=== PATIENT | female | born 1985 | race Caucasian/White ===

== ENCOUNTER 2019-11-08 13:51 | Emergency (ER) | payer OTHER ==
[~2019-11-08] VITALS: Ht 162 cm; Wt 118.0 kg
[2019-11-08 13:59] VITALS: BP 136/91
--- NOTE | 2019-11-08 14:15 | ED GI ---
General Chief Complaint: Abdominal/GI Problems Stated Complaint: ABD PAIN;BLOOD IN STOOL Nursing Triage Note: states has had abdominal pain, started having blood in stool this morning Sepsis Screen: No Definite Risk Source of Information: Patient Exam Limitations: No Limitations History of Present Illness Date Seen by Provider: Nov 08, 2019 Time Seen by Provider: 14:15 Initial Comments To ER with a cramping left-sided and suprapubic abdominal pain onset 3 days ago. Stools have been normal and formed but she did notice some blood on toilet paper after wiping this morning. She had no pain with bowel movement. Timing/Duration: 2-3 Days Severity/Quality: Moderate Location: LLQ, Suprapubic Radiation: No Radiation Activities at Onset: None Associated Symptoms: Nausea/Vomiting Allergies and Home Medications Allergies Coded Allergies: No Known Drug Allergies (Unverified , 11/08/19) Patient Home Medication List Home Medication List Reviewed: Yes Review of Systems Review of Systems Constitutional: see HPI EENTM: No Symptoms Reported Respiratory: No Symptoms Reported Cardiovascular: No Symptoms Reported Gastrointestinal: See HPI, Abdominal Pain Genitourinary: No Symptoms Reported Musculoskeletal: no symptoms reported Skin: no symptoms reported Psychiatric/Neurological: No Symptoms Reported Endocrine: No Symptoms Reported Hematologic/Lymphatic: No Symptoms Reported Past Cgusbkm-Wmlwss-Kdjdhb Hx Patient Social History Alcohol Use: Denies Use Recreational Drug Use: No Smoking Status: Current Everyday Smoker Type Used: Cigarettes 2nd Hand Smoke Exposure: Yes Recent Foreign Travel: No Contact w/Someone Who Travel: No Recent Infectious Disease Expo: No Recent Hopitalizations: No Seasonal Allergies Seasonal Allergies: No Past Medical History Tonsillectomy Respiratory: No Cardiac: Yes High Cholesterol Neurological: No Genitourinary: No Gastrointestinal: No Musculoskeletal: No Endocrine: Yes Diabetes, Non-Insulin dep HEENT: No Cancer: No Psychosocial: No Integumentary: No Blood Disorders: No Physical Exam Vital Signs Vital Signs - First Documented 11/08/19 13:59 Pulse 119 Resp 18 B/P (MAP) 136/91 (106) Capillary Refill : Less Than 3 Seconds Height/Weight/BMI Height: '" Weight: lbs. oz. kg; 44.00 BMI Method: General Appearance: WD/WN, no apparent distress Respiratory: no respiratory distress, no accessory muscle use Gastrointestinal: normal bowel sounds, soft, tenderness Extremities: normal range of motion, non-tender Neurologic/Psychiatric: alert, normal mood/affect, oriented x 3 Skin: normal color, warm/dry Progress/Results/Core Measures Results/Orders Lab Results Laboratory Tests Test 11/08/19 13:58 11/08/19 14:09 Range/Units Urine Color YELLOW Urine Clarity CLEAR Urine pH 6.0 5-9 Urine Specific [place] 1.020 1.016-1.022 Urine Protein NEGATIVE NEGATIVE Urine Glucose (UA) NEGATIVE NEGATIVE Urine Ketones NEGATIVE NEGATIVE Urine Nitrite NEGATIVE NEGATIVE Urine Bilirubin NEGATIVE NEGATIVE Urine Urobilinogen 0.2 < = 1.0 MG/DL Urine Leukocyte Esterase NEGATIVE NEGATIVE Urine RBC (Auto) NEGATIVE NEGATIVE Urine RBC NONE /HPF Urine WBC NONE /HPF Urine Squamous Epithelial Cells 10-25 H /HPF Urine Crystals NONE /LPF Urine Bacteria FEW H /HPF Urine Casts NONE /LPF Urine Mucus NEGATIVE /LPF Urine Yeast FEW H /HPF Urine Culture Indicated NO White Blood Count 13.9 H 4.3-11.0 10^3/uL Red Blood Count 4.61 4.35-5.85 10^6/uL Hemoglobin 14.2 11.5-16.0 G/DL Hematocrit 41 35-52 % Mean Corpuscular Volume 89 80-99 FL Mean Corpuscular Hemoglobin 31 25-34 PG Mean Corpuscular Hemoglobin Concent 35 32-36 G/DL Red Cell Distribution Width 13.7 10.0-14.5 % Platelet Count 429 H 130-400 10^3/uL Mean Platelet Volume 9.6 7.4-10.4 FL Neutrophils (%) (Auto) 62 42-75 % Lymphocytes (%) (Auto) 28 12-44 % Monocytes (%) (Auto) 7 0-12 % Eosinophils (%) (Auto) 2 0-10 % Basophils (%) (Auto) 0 0-10 % Neutrophils # (Auto) 8.7 H 1.8-7.8 X 10^3 Lymphocytes # (Auto) 3.9 1.0-4.0 X 10^3 Monocytes # (Auto) 1.0 0.0-1.0 X 10^3 Eosinophils # (Auto) 0.3 0.0-0.3 10^3/uL Basophils # (Auto) 0.0 0.0-0.1 10^3/uL Erythrocyte Sedimentation Rate 43 H 0-20 MM/HR Sodium Level 136 135-145 MMOL/L Potassium Level 4.4 3.6-5.0 MMOL/L Chloride Level 100 98-107 MMOL/L Carbon Dioxide Level 22 21-32 MMOL/L Anion Gap 14 5-14 MMOL/L Blood Urea Nitrogen 9 7-18 MG/DL Creatinine 0.76 0.60-1.30 MG/DL Estimat Glomerular Filtration Rate > 60 BUN/Creatinine Ratio 12 Glucose Level 268 H 70-105 MG/DL Calcium Level 9.6 8.5-10.1 MG/DL Corrected Calcium 9.5 8.5-10.1 MG/DL Total Bilirubin 0.2 0.1-1.0 MG/DL Aspartate Amino Transf (AST/SGOT) 12 5-34 U/L Alanine Aminotransferase (ALT/SGPT) 22 0-55 U/L Alkaline Phosphatase 76 40-136 U/L C-Reactive Protein High Sensitivity 2.66 H 0.00-0.50 MG/DL Total Protein 7.5 6.4-8.2 GM/DL Albumin 4.1 3.2-4.5 GM/DL Serum Test, Qualitative NEGATIVE NEGATIVE My Orders Orders - JOSH LINARES APRN Cbc With Automated Diff (11/08/19 14:12) Comprehensive Metabolic Panel (11/08/19 14:12) Ua Culture If Indicated (11/08/19 14:12) Erythrocyte Sedimentation Rate (11/08/19 14:12) Hs C Reactive Protein (11/08/19 14:12) Ed Iv/Invasive Line Start (11/08/19 14:12) Hcg,Qualitative Serum (11/08/19 14:12) Ct Abdomen/Pelvis W (11/08/19 14:19) Ketorolac Injection (Toradol Injection) (11/08/19 14:30) Ns Iv 1000 Ml (Sodium Chloride 0.9%) (11/08/19 14:30) Iohexol Injection (Omnipaque 350 Mg/Ml 1 (11/08/19 14:45) Received Contrast (Hold Metformin- Contr (11/08/19 14:45) Ns (Ivpb) (Sodium Chloride 0.9% Ivpb Bag (11/08/19 14:45) Medications Given in ED Current Medications Medications Dose Ordered Sig/Sondra Route Start Time Stop Time Status Last Admin Dose Admin Iohexol 100 ml ONCE ONCE IV 11/08/19 14:45 11/08/19 14:46 DC 11/08/19 15:22 100 ML Ketorolac Tromethamine 15 mg ONCE ONCE IVP 11/08/19 14:30 11/08/19 14:31 DC 11/08/19 14:27 15 MG Sodium Chloride 100 ml ONCE ONCE IV 11/08/19 14:45 11/08/19 14:46 DC 11/08/19 15:22 80 ML Vital Signs/I&O 11/08/19 13:59 Pulse 119 Resp 18 B/P (MAP) 136/91 (106) Blood Pressure Mean: 106 Diagnostic Imaging Diagonstic Imaging: Xray, CT Comments NAME: MARI HE [facility] REC#: [id number] PT STATUS: REG ER : 1985 PHYSICIAN: JOSH LINARES [employer] ADMIT DATE: 11/08/19/ER Draft Date of Exam:11/08/19 CT ABDOMEN/PELVIS W PROCEDURE: CT abdomen and pelvis with contrast. TECHNIQUE: Multiple contiguous axial images were obtained through the abdomen and pelvis after administration of intravenous contrast. Auto Exposure Controls were utilized during the CT exam to meet ALARA standards for radiation dose reduction. INDICATION: Left lower quadrant abdominal pain and cramping. COMPARISON: None. FINDINGS: Included portions of the lung bases are clear. CT ABDOMEN: Small bowel loops are nondistended. Normal appendix is identified. The kidneys, adrenal glands, spleen, pancreas, and liver have a normal CT appearance. There is no loculated fluid collection, free fluid, nor free air within the abdomen. No abnormal mesenteric or retroperitoneal adenopathy is seen. Osseous structures show no acute abnormalities. CT PELVIS: Urinary bladder is unopacified. No calculi are seen within urinary bladder. There is no loculated fluid collection, free fluid, nor free air. No abnormal lymph nodes are identified. Osseous structures show no acute abnormalities. IMPRESSION: 1. No acute abnormalities are seen within the abdomen or pelvis. Dictated on workstation # [id number] Dict: 11/08/19 1533 Trans: 11/08/19 1542 [facility] [id number] Interpreted by: YSABEL ANTHONY MD Electronically signed by: Departure Communication (Admissions) Family Conversation I would suspect. Bowel syndrome with constipation and either an internal hemorrhoid or anal fissure though she denies any rectal pain so an internal hemorrhoid would be more likely. He underwent L have her follow up with surgery for colonoscopy. Impression Primary Impression: Hematochezia Additional Impression: Left sided abdominal pain Disposition: HOME, SELF-CARE Condition: Stable Departure-Patient Inst. Decision time for Depature: 15:50 Referrals: TEJAS FLOREZ BRETT D DO KIDO, TAKAAKI MD Patient Instructions: Bloody Stools, Adult (DC) Add. Discharge Instructions: Call one of the surgeons listed on Monday to make an appointment to be seen to discuss setting up a colonoscopy. Return to ER for any worsening. Medication as directed Scripts Docusate Sodium (Colace) 100 Mg Capsule 100 MG PO DAILY, #14 CAP Prov: JOSH LINARES APRN 11/08/19 Dicyclomine HCl (Dicyclomine HCl) 20 Mg Tablet 20 MG PO TID, #21 TAB Prov: JOSH LINARES APRN 11/08/19 JOSH LINARES APRN Nov 08, 2019 14:15
[2019-11-08 14:19] LABS: BASOPHILS % (AUTO) 0 % (0-10); EOSINOPHILS # (AUTO) 0.3 10^3/uL (0.0-0.3); EOSINOPHILS % (AUTO) 2 % (0-10); HEMATOCRIT 41 % (35-52); HEMOGLOBIN 14.2 G/DL (11.5-16.0); LYMPHOCYTES # (AUTO) 3.9 X 10^3 (1.0-4.0); LYMPHOCYTES % (AUTO) 28 % (12-44); MEAN CORPUSCULAR HEMOGLOBIN 31 PG (25-34); MEAN CORPUSCULAR HGB CONC 35 G/DL (32-36); MEAN CORPUSCULAR VOLUME 89 FL (80-99); MEAN PLATELET VOLUME 9.6 FL (7.4-10.4); MONOCYTES % (AUTO) 7 % (0-12); NEUTROPHILS # (AUTO) 8.7 X 10^3 (1.8-7.8); NEUTROPHILS % (AUTO) 62 % (42-75); PLATELET COUNT 429 10^3/uL (130-400); RED CELL DISTRIBUTION WIDTH 13.7 % (10.0-14.5); WHITE BLOOD COUNT 13.9 10^3/uL (4.3-11.0)
[2019-11-08 14:25] LABS: ALBUMIN 4.1 GM/DL (3.2-4.5); CHLORIDE 100 MMOL/L (98-107); POTASSIUM 4.4 MMOL/L (3.6-5.0); SODIUM 136 MMOL/L (135-145)
[2019-11-08 14:26] LABS: CALCIUM 9.6 MG/DL (8.5-10.1)
[2019-11-08 14:27] LABS: GLUCOSE 268 MG/DL (70-105); TOTAL PROTEIN 7.5 GM/DL (6.4-8.2)
[2019-11-08 14:28] LABS: CARBON DIOXIDE 22 MMOL/L (21-32)
[2019-11-08 14:29] LABS: BILIRUBIN,TOTAL 0.2 MG/DL (0.1-1.0)
[2019-11-08] MEDS ORDERED: NS IV 1000 ML 1,000 ML IV SCH (14:30)
[2019-11-08] MEDS ORDERED: KETOROLAC 30 MG/ML VIAL IVP ONE (14:30)
[2019-11-08 14:31] LABS: ALKALINE PHOSPHATASE 76 U/L (40-136); CREATININE SERUM 0.76 MG/DL (0.60-1.30); GFR ESTIMATED > 60
[2019-11-08 14:32] LABS: BUN/CREATININE RATIO 12
[2019-11-08 14:34] LABS: ALANINE AMINOTRANSFERASE 22 U/L (0-55)
[2019-11-08 14:39] LABS: ERYTHROCYTE SEDIMENTATION RATE 43 MM/HR (0-20)
[2019-11-08] MEDS ORDERED: NS 100 ML (IVPB) BAG IV ONE (14:45)
[2019-11-08] MEDS ORDERED: IOHEXOL 350 MG/ML 100 ML (OMNIPAQUE 350) VIAL IV ONE (14:45)
[2019-11-08] MEDS ORDERED: HOLD METFORMIN - RECEIVED CONTRAST 20 ML VIAL IV SCH (14:45)
[2019-11-08 15:06] LABS: BILIRUBIN,URINE NEGATIVE (NEGATIVE); CLARITY,URINE CLEAR; COLOR,URINE YELLOW; GLUCOSE, URINE (UA) NEGATIVE (NEGATIVE); KETONES,URINE NEGATIVE (NEGATIVE); LEUKOCYTE ESTERASE ,URINE NEGATIVE (NEGATIVE); NITRITE,URINE NEGATIVE (NEGATIVE); PROTEIN,URINE NEGATIVE (NEGATIVE)
[2019-11-08 15:14] LABS: BACTERIA,URINE FEW /HPF
[2019-11-08 15:15] LABS: YEAST,URINE FEW /HPF
--- NOTE | 2019-11-08 15:42 | Diagnostic Imaging Report ---
PROCEDURE: CT abdomen and pelvis with contrast. TECHNIQUE: Multiple contiguous axial images were obtained through the abdomen and pelvis after administration of intravenous contrast. Auto Exposure Controls were utilized during the CT exam to meet ALARA standards for radiation dose reduction. INDICATION: Left lower quadrant abdominal pain and cramping. COMPARISON: None. FINDINGS: Included portions of the lung bases are clear. CT ABDOMEN: Small bowel loops are nondistended. Normal appendix is identified. The kidneys, adrenal glands, spleen, pancreas, and liver have a normal CT appearance. There is no loculated fluid collection, free fluid, nor free air within the abdomen. No abnormal mesenteric or retroperitoneal adenopathy is seen. Osseous structures show no acute abnormalities. CT PELVIS: Urinary bladder is unopacified. No calculi are seen within urinary bladder. There is no loculated fluid collection, free fluid, nor free air. No abnormal lymph nodes are identified. Osseous structures show no acute abnormalities. IMPRESSION: 1. No acute abnormalities are seen within the abdomen or pelvis. Dictated by: Dictated on workstation # [id number]
[2019-11-08] MEDS ORDERED: DOCU-143 PO (15:51)
[2019-11-08] MEDS ORDERED: DICY20TA10 PO (15:51)
--- OUTSIDE RECORDS SUMMARY | 2019-11-08 17:49 | XMS REPORT ---
Author Author Jennifer Jade Organization [facility] Address [address] [place] [address] Care Team Providers Care Compliance Nurse Name Role Phone DOUGIE Jade Unavailable PROBLEMS Type Condition ICD9-CM Code TLN54-CO Code Onset Dates Condition S tatus SNOMED Code Problem Diabetes type 2, uncontrolled E11.65 Active 537861285 Problem Type 2 diabetes mellitus wit h hyperglycemia, without long-term current use of insulin E11.65 Active 40937563 Problem Pure hypercholesterolemia E78.0 Acti ve 116175743 Problem Anhedonia R45.84 Active 44648549 Problem Anxiety F41.9 Active 16099371 Problem Morbid obesity, unspecified obesity type E66.01 Active 109479897 Problem Uncontrolled type 2 diabetes mellitus without complication, without long-term current use of insulin E11.65 Active 507158905 Problem Moderate single current episode of major depressive disord er F32.1 Active 44406502 Problem Current severe episode of ma 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 without prior episode F32.2 Active 02889030 Problem Difficulty sleeping G47.9 Active 548379066 Problem Chronic GERD K21.9 Active 9604573 09 Problem Mixed hyperlipidemia E78.2 Active 659285237 Problem Irritability R45.4 Active 9745630 7 Problem Other obesity due to excess calories E66.09 Active 600493366 Problem Body mass index (BMI) of 45.0-49.9 in adult Z68.42 Active 933756440 Problem Pure hypercholesterolemia, unspecified E78.00 Active 043224179 ALLERGIES No Information ENCOUNTERS Encounter Location Date Diagnosis [place] [address] [facility] [id number] [place] [address] 09 Jul, 2019 Acute non-recurrent frontal sinusitis J0 1.10 [place] [address] [facility] [id number] [place] [address] Jul, [facility] [address] [facility] [id number] [address] [place] [phone] Jan, Caries K02.9 [facility] [address] [facility] [id number] [address] [place] [phone] Jan, Dental examination Z01.20 an d Caries K02.9 [place] [address] [facility] [id number] [place] [id number] Apr, [facility] [place] [address] [facility] [id number] [place] [id number] Mar, Chronic GERD K21.9 and Diarrhea R19.7 [facility] [address] [id number] [place] [id number] Mar, BMI 45.0-49.9, adult Z68.42 and Viral sy ndrome B34.9 [place] [id number] [place] [address], S [id number] Feb, URI, acute J06.9 and BMI 45.0-49.9, adul t Z68.42 [place] [address] [facility] [id number] [place] [id number] Oct, Dental examination Z01.[id number] [place] [address] [id number] Oct, Dental examination Z01.[id number] [place] [id number] August, BMI 45.0-49.9, adult Z68.42 ; Diabetes t ype 2, uncontrolled E11.65 and Mixed hyperlipidemia E78.[address] [place] [id number] [place] [id number] August, Dental examination Z01.20 [facility] [address] [facility] [id number] [address] [place] [phone] Jul, Current severe episode of ma 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 without prior episode F32.2 [facility] [address] [facility] [id number] [place] [id number] Jun, Mixed hyperlipidemia E78.2 ; Diabetes ty pe 2, uncontrolled E11.65 ; BMI 45.0- 49.9, adult Z68.42 ; Stressful life event affecting family Z63.79 ; BCP ( control pills) initiation Z30.011 and Anxiety F41.[address] [id number] [place] [id number] May, Diabetes type 2, uncontrolled E11.65 ; M ixed hyperlipidemia E78.2 ; Current severe episode of major depressive disorder without psychotic features without prior episode F32.2 ; Vaginal discharge N89.8 ; Vision changes H53.9 and BMI 45.0-49.9, adult Z68.42 [facility] [id number] [place] [id number] May, Type 2 diabetes mellitus with hyperglyce mere, without long-term current use of insulin E11.65 and Mixed hyperlipidemia E78.2 [facility]00565100[facility], Liquid5 S [id number] May, Type 2 diabetes mellitus with hyperglyce mere, without long-term current use of insulin E11.65 [facility] [place] [address] [facility] [address] [id number] [place] [phone] May, Dental examination Z01.20 [facility] [place] [address] [facility] [address] [id number] [place] [id number] May, Dental examination Z01.20 [facility] [place] [address] [place] [address] AVE [id number] [place] [id number] Apr, Dental examination Z01.20 [facility] [address] [id number] [employer], Liquid5 S [id number] Jan, Mixed hyperlipidemia E78.2 and Pure hype rcholesterolemia, unspecified E78.00 [facility] [address] [id number] [employer], [place] [id number] Jan, Mid-back pain, acute M54.9 ; Anxiety F41 .9 ; Type 2 diabetes mellitus with hyperglycemia, without long-term current use of insulin E11.65 ; Mixed hyperlipidemia E78.2 ; Irritability R45.4 ; Moderate single current episode of major depressive disorder F32.1 ; Other chest pain R07.89 ; Other obesity due to excess calories E66.09 ; Body mass index (BMI) of 45.0-49.9 in adult Z68.42 and BMI 45.0-49.9, adult Z68.42 [facility] [address] [id number] [place] [id number] Dec, 2017 Diabetes type 2, uncontrolled E11.65 ; M orbid obesity, unspecified obesity type E66.01 ; Mixed hyperlipidemia E78.2 ; Moderate single current episode of major depressive disorder F32.1 ; Irritability R45.4 ; Dysuria R30.0 and BCP ( control pills) initiation Z30.011 [facility] [address] [id number] [address] [place] [id number] Nov, Dental examination Z01.20 [facility] [id number] [place] [id number] Nov, Right wrist pain M25.531 [facility] [address] [place] [id number] [place] [id number] Jul, BCP ( control pills) initiation Z30 .011 [facility] [id number] [place] [id number] Jun, Left otitis media, unspecified chronicit y, unspecified otitis media type H66.92 ; Morbid obesity, unspecified obesity type E66.01 ; Neck pain on left side M54.2 and Uncontrolled type 2 diabetes mellitus without complication, without long- term current use of insulin E11.65 [facility] [address] [facility] [id number] [place] [id number] Apr, Anxiety F41.9 ; Anhedonia R45.84 ; Diffi culty sleeping G47.9 ; Type 2 diabetes mellitus with hyperglycemia, without long-term current use of insulin E11.65 ; control counseling Z30.9 ; BCP ( control pills) initiation Z30.011 and Mixed hyperlipidemia E78.2 [facility] [address] [facility] [id number] [place] [id number] Oct, Diabetes type 2, uncontrolled E11.65 and Pure hypercholesterolemia E78.0 [facility] [address] [facility] [id number] [address] [place] [phone] August, [facility] [address] [facility] [id number] [place] [id number] Jun, Diabetes type 2, uncontrolled E11.65 and Pure hypercholesterolemia E78.0 [facility] [place] [address] [facility] [id number] [place] [id number] Jun, Diabetes type 2, uncontrolled E11.65 [facility] [address] [facility] [id number] [address] [place] [id number] Mar, [facility] [address] [facility] [id number] [place] [id number] Mar, [facility] [place] [address] [facility] [id number] [place] [id number] Mar, Diabetes type 2, uncontrolled E11.65 [facility] [place] [address] [facility] [id number] [place] [id number] Mar, [facility] [place] [facility] [facility] [address] [id number] [place] [id number] August, Abdominal pain 789.00 and Frequency of u rination 788.41 [facility] [address] [facility] [id number] [address] [place] [phone] Jul, [facility] [address] [facility] [id number] [address] [place] [phone] Jul, [facility] [place] [address] [facility] [id number] [place] [id number] Feb, [facility] [address] [facility] [id number] [address] [place] [phone] Feb, [facility] [place] [address] [facility] [id number] [place] [id number] Feb, [facility] [address] [facility] [id number] [address] [place] [phone] Feb, [facility] [address] [facility] [id number] [address] [place] [phone] Feb, [facility] [address] [id number] [address] [place] [address], [place] [address] Feb, [facility] [address] [id number] [place] [id number] Feb, [facility] [address] [id number] [address] [place] [address], [place] [address] Feb, [facility] [address] [id number] [place] [id number] Jan, [facility] [address] [id number] [address] [place] [address], [place] [address] Jan, [facility] [address] [id number] [place] [id number] Sep, [facility] [address] [id number] [address] [place] [address], [place] [address] Sep, [facility] [address] [id number] [place] [id number] August, [facility] [address] [id number] [address] [place] [address], [place] [address] August, [facility] [address] [id number] [address] [place] [address], [place] [address] Jul, [facility] [address] [id number] [place], [place] [id number] Jul, [facility] [address] [id number] [place], [place] [id number] Jul, [facility] [address] [id number] [place] [id number] Jul, [facility] [address] [id number] [address] [place] [address], [place] [address] Jul, [facility] [address] [id number] [address] [place] [address], [place] [address] Jul, [facility] [address] [id number] [place] [id number] Jun, [facility] [address] [id number] [address] [place] [address], [place] [address] Jun, [facility] [address] [id number] [place] [id number] May, [facility] [address] [id number] [address] [place] [address], [place] [address] May, [facility] [address] [id number] [place] [id number] Apr, [facility] [address] [id number] [address] [place] [address], [place] [address] Apr, [facility] [address] [id number] [address] [place] [phone] Apr, [facility] [address] [id number] [place] [id number] Apr, [facility] [address] [id number] [address] [place] [address], [place] [address] Apr, [facility] [address] [id number] [place] [id number] Jan, [facility] [address] [id number] [address] [place] [address], [place] [address] Jan, [facility] [address] [id number] [place] [id number] Jan, [facility] [address] [id number] [place] [id number] Dec, [facility] [address] [id number] [place] [id number] Nov, [facility] [address] [id number] [address] [place] [address], [place] [address] Nov, [facility] [address] [id number] [address] [place] [address], [place] [address] Nov, [facility] [address] [id number] [place] [id number] Nov, [facility] [address] [id number] [address] [place] [address], [place] [address] Nov, [facility] [address] [facility] [id number] 100[address] [place] [address] Nov, [facility] [address] [facility] [id number] [place] [id number] Nov, IMMUNIZATIONS No Known Immunizations SOCIAL HISTORY Never Assessed REASON FOR VISIT PLAN OF CARE VITAL SIGNS MEDICATIONS No Known Medications RESULTS No Results PROCEDURES No Known procedures INSTRUCTIONS MEDICATIONS ADMINISTERED No Known Medications MEDICAL (GENERAL) HISTORY Type Description Date Medical History Depressive disorder, not elsewhere class ified Medical History Anxiety state, unspecified Medical History Headache Medical History Obesity, unspecified Medical History Other and unspecified hyperlipidemia Medical History Nondependent tobacco use disorder Medical History type II diabetes Medical History Polycystic ovaries Medical History Hirsutism Medical History gastroparesis Surgical History tonsillectomy 1988 Surgical History samir alicia 2008 Surgical History lesion on left arm removed 1999 Surgical History wisdom teeth extraction 2008 Hospitalization History Syncope episode at work, hyp ertension, was seen at [facility] ([place], [place]) 04/09/16
--- OUTSIDE RECORDS SUMMARY | 2019-11-08 17:49 | XMS REPORT ---
Author Author Jennifer Echeverria [facility] Address [address] [place] [address] Care Team Providers Care Photography Colorist Name Role Phone CORA Echeverria Unavailable PROBLEMS Type Condition ICD9-CM Code PML39-UQ Code Onset Dates Condition S tatus SNOMED Code Problem Diabetes type 2, uncontrolled E11.65 Active 429767902 Problem Type 2 diabetes mellitus wit h hyperglycemia, without long-term current use of insulin E11.65 Active 79177996 Problem Pure hypercholesterolemia E78.0 Acti ve 202296579 Problem Anhedonia R45.84 Active 65103307 Problem Anxiety F41.9 Active 65438207 Problem Morbid obesity, unspecified obesity type E66.01 Active 035653626 Problem Uncontrolled type 2 diabetes mellitus without complication, without long-term current use of insulin E11.65 Active 574061664 Problem Moderate single current episode of major depressive disord er F32.1 Active 58012389 Problem Current severe episode of ma 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 without prior episode F32.2 Active 52665037 Problem Difficulty sleeping G47.9 Active 227222532 Problem Chronic GERD K21.9 Active 7008650 09 Problem Mixed hyperlipidemia E78.2 Active 081564090 Problem Irritability R45.4 Active 7031872 7 Problem Other obesity due to excess calories E66.09 Active 855657938 Problem Body mass index (BMI) of 45.0-49.9 in adult Z68.42 Active 840822556 Problem Pure hypercholesterolemia, unspecified E78.00 Active [id number] ALLERGIES No Information ENCOUNTERS Encounter Location Date Diagnosis [place] [address] [facility] [place] [address] Jan, Caries K02.9 [place] [address] [facility] [place] [address] Jan, Dental examination Z01.20 and Caries K02 .9 [facility] [address] [id number] [place] [id number] Apr, [place] [id number] [place] [id number] Mar, Chronic GERD K21.9 and Diarrhea R19.7 [place] [id number] Mar, BMI 45.0-49.9, adult Z68.42 and Viral syndrome B34.[address] [id number] Feb, URI, acute J06.9 and BMI 45.0-49.9, adult Z68.42 [place] [address] [id number] [place] [id number] Oct, Dental examination Z01.20 [facility] [address] [place] [address] [place] [id number] Oct, Dental examination Z01.[address] [place] [id number] August, BMI 45.0-49.9, adult Z68.42 ; Diabetes t ype 2, uncontrolled E11.65 and Mixed hyperlipidemia E78.2 [facility] [address] [place] [address] AVE [id number] [place] [id number] August, Dental examination Z01.20 [facility] [address] [place] [address] Jul, Current severe episode of major depressi ve disorder without psychotic features without prior episode F32.2 [address] [id number] Jun, Mixed hyperlipidemia E78.2 ; Diabetes type 2, uncontrolled E11.65 ; BMI 45.0-49.9, adult Z68.42 ; Stressful life event affecting family Z63.79 ; BCP ( control pills) initiation Z30.011 and Anxiety F41.[address] [place] [id number] May, Diabetes type 2, uncontrolled E11.65 ; Mixed hyperlipidemia E78.2 ; Current severe episode of major depressive disorder without psychotic features without prior episode F32.2 ; Vaginal discharge N89.8 ; Vision changes H53.9 and BMI 45.0-49.9, adult Z68.[address] [id number] May, Type 2 diabetes mellitus with hyperglycemia, without long-term current use of insulin E11.65 and Mixed hyperlipidemia E78.[address] [id number] May, Type 2 diabetes mellitus with hyperglycemia, without long-term current use of insulin E11.[address] [id number] May, Dental examination Z01.[address] [id number] May, Dental examination Z01.[address] [id number] Apr, Dental examination Z01.[address] [id number] Jan, Mixed hyperlipidemia E78.2 and Pure hypercholesterolemia, unspecified E78.[address] [id number] Jan, Mid- back pain, acute M54.9 ; Anxiety F41.9 ; Type 2 diabetes mellitus with hyperglycemia, without long-term current use of insulin E11.65 ; Mixed hyperlipidemia E78.2 ; Irritability R45.4 ; Moderate single current episode of major depressive disorder F32.1 ; Other chest pain R07.89 ; Other obesity due to excess calories E66.09 ; Body mass index (BMI) of 45.0-49.9 in adult Z68.42 and BMI 45.0-49.9, adult Z68.[address] [id number] Dec, Diabetes type 2, uncontrolled E11.65 ; Morbid obesity, unspecified obesity type E66.01 ; Mixed hyperlipidemia E78.2 ; Moderate single current episode of major depressive disorder F32.1 ; Irritability R45.4 ; Dysuria R30.0 and BCP ( control pills) initiation Z30.011 [facility] [address] [facility] [place] [id number] Nov, Dental examination Z01.[address] [id number] Nov, Right wrist pain M25.[address] [id number] Jul, BCP ( control pills) initiation Z30.[address] [id number] Jun, Left otitis media, unspecified chronicity, unspecified otitis media type H66.92 ; Morbid obesity, unspecified obesity type E66.01 ; Neck pain on left side M54.2 and Uncontrolled type 2 diabetes mellitus without complication, without long- term current use of insulin E11.[address] [id number] Apr, Anxiety F41.9 ; Anhedonia R45.84 ; Difficulty sleeping G47.9 ; Type 2 diabetes mellitus with hyperglycemia, without long-term current use of insulin E11.65 ; control counseling Z30.9 ; BCP ( control pills) initiation Z30.011 and Mixed hyperlipidemia E78.[address] [id number] Oct, Diabetes type 2, uncontrolled E11.65 and Pure hypercholesterolemia E78.0 [facility] [address] [place] [address] August, [address] [id number] Jun, Diabetes type 2, uncontrolled E11.65 and Pure hypercholesterolemia E78.[address] [id number] Jun, Diabetes type 2, uncontrolled E11.65 [facility] [address] [address] Mar, [address] [place] [id number] Mar, [facility] [place] [id number] [place] [id number] Mar, Diabetes type 2, uncontrolled E11.65 [facility] [place] [id number] Mar, [facility] [place] [address] [facility] [place] [id number] August, Abdominal pain 789.00 and Frequency of u rination 788.41 [facility] [address] [address] Jul, [facility] [address] [address] Jul, [facility] [place] [id number] Feb, [facility] [address] [address] Feb, [facility] [place] [id number] [place] [id number] Feb, [facility] [address] [address] Feb, [facility] [address] [address] Feb, [facility] [address] [address] Feb, [facility] [place] [id number] [place] [address] [id number] Feb, [facility] [address] [address] Feb, [facility] [address] [id number] Jan, [facility] [address] [address] Jan, [facility] [address] [id number] Sep, [facility] [address] [place] [address] Sep, [facility] [address] [place] [address] [id number] [id number] August, [facility] [id number] [place] [address] August, [facility] [address] [place] [address] Jul, [facility] [address] [place] [id number] [id number] Jul, [facility] [address] [place] [id number] [id number] Jul, [facility] [address] [place] [id number] [id number] Jul, [facility] [id number] [place] [address] Jul, [facility] [address] [place] [address] Jul, [facility] [address] [place] [id number] [id number] Jun, [facility] [address] [place] [address] Jun, [facility] [address] [facility] [id number] May, [facility] [address] [place] [address] May, [facility] [address] [place] [id number] Apr, [facility] [address] [place] [address] Apr, [facility] [address] [place] [address] Apr, [facility] [address] [facility] [id number] Apr, [facility] [address] [place] [address] Apr, [facility] [address] [facility] [place] [id number] Jan, [facility] [address] [place] [address] Jan, [facility] [address] [facility] [id number] Jan, [facility] [address] [id number] [place] [id number] Dec, [facility] [address] [id number] [place] [id number] Nov, [facility] [address] [address] Nov, [facility] [address] [address] Nov, [place] [id number] [place] [address] [id number] Nov, [facility] [address] [address] Nov, [facility] [address] [place] [address] Nov, [place] [id number] [place] [id number] Nov, IMMUNIZATIONS No Known Immunizations SOCIAL HISTORY Never Assessed REASON FOR VISIT PLAN OF CARE VITAL SIGNS Height 64 in 2013-05-29 Weight 298 lbs 2013-05-29 Temperature 97.5 degrees Fahrenheit 2013-05-29 Heart Rate 90 bpm 2013-05-29 Respiratory Rate 16 2013-05-29 Blood pressure systolic 120 mmHg 2013-05-29 Blood pressure diastolic 78 mmHg 2013-05-29 MEDICATIONS Unknown Medications RESULTS No Results PROCEDURES No Known [...] removed 1999 Surgical History wisdom teeth extraction 2009 Hospitalization History Syncope episode at work, hyp ertension, was seen at [facility] 04/09/16
--- OUTSIDE RECORDS SUMMARY | 2019-11-08 17:49 | XMS REPORT ---
Author Author Jennifer Echeverria [facility] Address [address] [place] [address] Care Team Providers Care Pearl Digger Name Role Phone CORA Echeverria Unavailable PROBLEMS Type Condition ICD9-CM Code TGV39-QQ Code Onset Dates Condition S tatus SNOMED Code Problem Diabetes type 2, uncontrolled E11.65 Active 747840611 Problem Type 2 diabetes mellitus wit h hyperglycemia, without long-term current use of insulin E11.65 Active 10901918 Problem Pure hypercholesterolemia E78.0 Acti ve 564595570 Problem Anhedonia R45.84 Active 75829936 Problem Anxiety F41.9 Active 83905763 Problem Morbid obesity, unspecified obesity type E66.01 Active 621160959 Problem Uncontrolled type 2 diabetes mellitus without complication, without long-term current use of insulin E11.65 Active 921059585 Problem Moderate single current episode of major depressive disord er F32.1 Active 74818562 Problem Current severe episode of ma 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 without prior episode F32.2 Active 29531519 Problem Difficulty sleeping G47.9 Active 170088687 Problem Chronic GERD K21.9 Active 1649355 09 Problem Mixed hyperlipidemia E78.2 Active 271268660 Problem Irritability R45.4 Active 0354367 7 Problem Other obesity due to excess calories E66.09 Active 379563069 Problem Body mass index (BMI) of 45.0-49.9 in adult Z68.42 Active 280333839 Problem Pure hypercholesterolemia, unspecified E78.00 Active 483712620 ALLERGIES No Information ENCOUNTERS Encounter Location Date Diagnosis [place] [address] [facility] [place] [address] Jan, Caries K02.9 [place] [address] [facility] [place] [address] Jan, Dental examination Z01.20 and Caries K02 .[address] [facility] [address] [facility] [address] [id number] [place] [id number] Apr, [place] [id number] [place] [id number] Mar, Chronic GERD K21.9 and Diarrhea R19.7 [place] [id number] Mar, BMI 45.0-49.9, adult Z68.42 and Viral syndrome B34.[address] [id number] Feb, URI, acute J06.9 and BMI 45.0-49.9, adult Z68.[address] [place] [facility] [address] [id number] [place] [id number] Oct, Dental examination Z01.20 [facility] [address] [place] [address] [place] [id number] Oct, Dental examination Z01.[address] [place] [id number] August, BMI 45.0-49.9, adult Z68.42 ; Diabetes t ype 2, uncontrolled E11.65 and Mixed hyperlipidemia E78.2 [facility] [address] [place] [address] AVE [id number] [place] [id number] August, Dental examination Z01.20 [facility] [address] [facility] [place] [address] Jul, Current severe episode of major depressi ve disorder without psychotic features without prior episode F32.2 [address] [id number] Jun, Mixed hyperlipidemia E78.2 ; Diabetes type 2, uncontrolled E11.65 ; BMI 45.0-49.9, adult Z68.42 ; Stressful life event affecting family Z63.79 ; BCP ( control pills) initiation Z30.011 and Anxiety F41.9 [address] [place] [id number] May, Diabetes type 2, uncontrolled E11.65 ; Mixed hyperlipidemia E78.2 ; Current severe episode of major depressive disorder without psychotic features without prior episode F32.2 ; Vaginal discharge N89.8 ; Vision changes H53.9 and BMI 45.0-49.9, adult Z68.[address] [id number] May, Type 2 diabetes mellitus with hyperglycemia, without long-term current use of insulin E11.65 and Mixed hyperlipidemia E78.[address] [id number] May, Type 2 diabetes mellitus with hyperglycemia, without long-term current use of insulin E11.[address] [id number] May, Dental examination Z01.[address] [id number] May, Dental examination Z01.[address] [id number] Apr, Dental examination Z01.[address] [id number] Jan, Mixed hyperlipidemia E78.2 and Pure hypercholesterolemia, unspecified E78.[address] [id number] Jan, Mid- back pain, acute M54.9 ; [...] adult Z68.42 and BMI 45.0-49.9, adult Z68.[address] [id number] Dec, Diabetes type 2, uncontrolled E11.65 ; Morbid obesity, unspecified obesity type E66.01 ; Mixed hyperlipidemia E78.2 ; Moderate single current episode of major depressive disorder F32.1 ; Irritability R45.4 ; Dysuria R30.0 and BCP ( control pills) initiation Z30.011 [facility] [address] [facility] [place] [address] Nov, Dental examination Z01.[address] [id number] Nov, Right wrist pain M25.[address] [id number] Jul, BCP ( control pills) initiation Z30.[address] [id number] Jun, Left otitis media, unspecified chronicity, unspecified otitis media type H66.92 ; Morbid obesity, unspecified obesity type E66.01 ; Neck pain on left side M54.2 and Uncontrolled type 2 diabetes mellitus without complication, without long- term current use of insulin E11.[address] [id number] Apr, Anxiety F41.9 ; Anhedonia R45.84 ; Difficulty sleeping G47.9 ; Type 2 diabetes mellitus with hyperglycemia, without long-term current use of insulin E11.65 ; control counseling Z30.9 ; BCP ( control pills) initiation Z30.011 and Mixed hyperlipidemia E78.[address] [id number] Oct, Diabetes type 2, uncontrolled E11.65 and Pure hypercholesterolemia E78.0 [facility] [address] [place] [address] [place] [address] August, [address] [id number] Jun, Diabetes type 2, uncontrolled E11.65 and Pure hypercholesterolemia E78.[address] [id number] Jun, Diabetes type 2, uncontrolled E11.65 [facility] [address] [address] Mar, [address] [place] [id number] Mar, [facility] [place] [id number] [place] [address] [id number] Mar, Diabetes type 2, uncontrolled E11.65 [facility] [place] [address] Mar, [facility] [place] [address] [facility] [place] [id number] August, Abdominal pain 789.00 and Frequency of u rination 788.41 [facility] [address] [address] Jul, [facility] [address] [address] Jul, [facility] [place] [id number] Feb, [facility] [address] [address] Feb, [facility] [place] [id number] [place] [address] [id number] Feb, [facility] [address] [address] Feb, [facility] [address] [address] Feb, [facility] [address] [address] Feb, [facility] [place] [id number] [place] [address] [id number] Feb, [facility] [address] [address] Feb, [facility] [address] [id number] Jan, [facility] [address] [address] Jan, [facility] [address] [id number] Sep, [facility] [address] [facility] [place] [address] Sep, [facility] [address] [place] [address] [id number] [id number] August, [facility] [address] [place] [id number] [place] [address] August, [facility] [id number] [place] [address] Jul, [facility] [address] [place] [address] [id number] [id number] Jul, [facility] [address] [place] [id number] [id number] Jul, [facility] [address] [place] [address] [id number] [id number] Jul, [facility] [id number] [place] [address] Jul, [facility] [id number] [place] [address] Jul, [facility] [address] [place] [address] [id number] [id number] Jun, [facility] [id number] [place] [address] Jun, [facility] [address] [facility]757[place] [address] May, [facility] [id number] [place] [address] May, [facility] [address] [place] [id number] [id number] Apr, [facility] [id number] [place] [address] Apr, [facility] [address] [facility] [place] [address] Apr, [facility] [address] [facility]757[place] [id number] Apr, [facility] [address] [facility] [place] [address] Apr, [facility] [address] [facility] [place] [id number] Jan, [facility] [address] [place] [address] Jan, [facility] [address] [facility]757[place] [id number] Jan, [facility] [id number] [place] [address] [id number] Dec, [facility] [id number] [place] [address] [id number] Nov, [facility] [address] [address] Nov, [facility] [address] [address] Nov, [place] [id number] [place] [address] [id number] Nov, [facility] [address] [address] Nov, [facility] [id number] [place] [address] Nov, [place] [id number] [place] [address] [id number] Nov, IMMUNIZATIONS No Known Immunizations SOCIAL HISTORY Never Assessed REASON FOR VISIT PLAN OF CARE VITAL SIGNS Height 64 in 2013-06-26 Weight 299.2 lbs 2013-06-26 Temperature 97.9 degrees Fahrenheit 2013-06-26 Heart Rate 88 bpm 2013-06-26 Respiratory Rate 16 2013-06-26 Blood pressure systolic 122 mmHg 2013-06-26 Blood pressure diastolic 70 mmHg 2013-06-26 MEDICATIONS Unknown Medications RESULTS No Results PROCEDURES [...] gastroparesis Surgical History tonsillectomy 1988 Surgical History lasik bilat 2008 Surgical History lesion on left arm removed 1999 Surgical History wisdom teeth extraction 2008 Hospitalization History Syncope episode at work, hyp ertension, was seen at [facility] 04/09/16
--- OUTSIDE RECORDS SUMMARY | 2019-11-08 17:49 | XMS REPORT ---
Author Author Jennifer Echeverria Organization [facility] Address [address] [place] [address] Care Team Providers Care Recreational Therapy Aide Name Role Phone CORA Echeverria Unavailable PROBLEMS Type Condition ICD9-CM Code DLZ98-KE Code Onset Dates Condition S tatus SNOMED Code Problem Diabetes type 2, uncontrolled E11.65 Active 522260685 Problem Type 2 diabetes mellitus wit h hyperglycemia, without long-term current use of insulin E11.65 Active 13071672 Problem Pure hypercholesterolemia E78.0 Acti ve 404677408 Problem Anhedonia R45.84 Active 47750644 Problem Anxiety F41.9 Active 71857197 Problem Morbid obesity, unspecified obesity type E66.01 Active 000839298 Problem Uncontrolled type 2 diabetes mellitus without complication, without long-term current use of insulin E11.65 Active 203288460 Problem Moderate single current episode of major depressive disord er F32.1 Active 59755930 Problem Current severe episode of ma 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 without prior episode F32.2 Active 41123309 Problem Difficulty sleeping G47.9 Active 027248782 Problem Chronic GERD K21.9 Active 1375898 09 Problem Mixed hyperlipidemia E78.2 Active 327303029 Problem Irritability R45.4 Active 1478817 7 Problem Other obesity due to excess calories E66.09 Active 514464072 Problem Body mass index (BMI) of 45.0-49.9 in adult Z68.42 Active 267032314 Problem Pure hypercholesterolemia, unspecified E78.00 Active 803203458 ALLERGIES No Information ENCOUNTERS Encounter Location Date Diagnosis [place] [address] [facility] [id number] [place] [address] 09 Jul, 2019 Acute non-recurrent frontal sinusitis J0 1.10 [place] [address] [facility] [id number] [place] [address] Jul, [facility] [address] [facility] [id number] [address] [place] [address] Jan, Caries K02.9 [facility] [address] [facility] [id number] [address] [place] [address] Jan, Dental examination Z01.20 an d Caries K02.9 [place] [address] [facility] [id number] [place] [address] [id number] Apr, [facility] [address] [facility] [id number] [place] [id number] Mar, Chronic GERD K21.9 and Diarrhea R19.[address] [id number] [place] [id number] Mar, BMI 45.0-49.9, adult Z68.42 and Viral sy ndrome B34.[address] [id number] [place] [id number] Feb, URI, acute J06.9 and BMI 45.0-49.9, adul t Z68.42 [place] [address] [facility] [id number] [place] [address] [id number] Oct, Dental examination Z01.20 [place] [address] [facility] [id number] [place] [address] [id number] Oct, Dental examination Z01.[id number] [place] [address] [id number] August, BMI 45.0-49.9, adult Z68.42 ; Diabetes t ype 2, uncontrolled E11.65 and Mixed hyperlipidemia E78.2 [place] [address] [facility] [id number] [place] [address] [id number] August, Dental examination Z01.20 [facility] [address] [facility] [id number] [address] [place] [address] Jul, Current severe episode of ma 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 without prior episode F32.2 [facility] [address] [facility] [id number] [place] [id number] Jun, Mixed hyperlipidemia E78.2 ; Diabetes ty pe 2, uncontrolled E11.65 ; BMI 45.0- 49.9, adult Z68.42 ; Stressful life event affecting family Z63.79 ; BCP ( control pills) initiation Z30.011 and Anxiety F41.[address] [id number] [place] [id number] May, Diabetes type 2, uncontrolled E11.65 ; M ixed hyperlipidemia E78.2 ; Current severe episode of major depressive disorder without psychotic features without prior episode F32.2 ; Vaginal discharge N89.8 ; Vision changes H53.9 and BMI 45.0-49.9, adult Z68.42 [id number] [id number] May, Type 2 diabetes mellitus with hyperglyce mere, without long-term current use of insulin E11.65 and Mixed hyperlipidemia E78.2 [facility] [id number] [id number] May, Type 2 diabetes mellitus with hyperglyce mere, without long-term current use of insulin E11.65 [facility] [place] [address] [facility] [id number][place] [id number] May, Dental examination Z01.20 [facility] [place] [address] [facility] [id number][place] [id number] May, Dental examination Z01.20 [facility] [place] [address] [place] [address] [id number] [place] [address] [id number] Apr, Dental examination Z01.20 [facility] [address] [id number] [place] [id number] Jan, Mixed hyperlipidemia E78.2 and Pure hype rcholesterolemia, unspecified E78.00 [facility] [address] [id number] [place] [id number] Jan, Mid-back pain, acute M54.9 ; Anxiety [...] adult Z68.42 and BMI 45.0-49.9, adult Z68.42 [facility] [address] [id number] [place] [id number] Dec, 2017 Diabetes type 2, uncontrolled E11.65 ; M orbid obesity, unspecified obesity type E66.01 ; Mixed hyperlipidemia E78.2 ; Moderate single current episode of major depressive disorder F32.1 ; Irritability R45.4 ; Dysuria R30.0 and BCP ( control pills) initiation Z30.011 [facility] [address] [id number] [address] [place] [id number] Nov, Dental examination Z01.20 [facility] [id number] [place] [id number] Nov, Right wrist pain M25.531 [facility] [address] [place] [id number] [place] [id number] Jul, BCP ( control pills) initiation Z30 .011 [facility] [address] [place] [id number] [place] [id number] Jun, Left otitis media, unspecified chronicit y, unspecified otitis media type H66.92 ; Morbid obesity, unspecified obesity type E66.01 ; Neck pain on left side M54.2 and Uncontrolled type 2 diabetes mellitus without complication, without long- term current use of insulin E11.65 [facility] [address] [id number] [place] [id number] Apr, Anxiety F41.9 ; Anhedonia R45.84 ; Diffi culty sleeping G47.9 ; Type 2 diabetes mellitus with hyperglycemia, without long-term current use of insulin E11.65 ; control counseling Z30.9 ; BCP ( control pills) initiation Z30.011 and Mixed hyperlipidemia E78.2 [facility] [address] [facility] [id number] [place] [id number] Oct, Diabetes type 2, uncontrolled E11.65 and Pure hypercholesterolemia E78.0 [facility] [address] [facility] [id number] [address] [place] [address] August, [facility] A[facility] M [address] [facility] [id number] [place] [id number] Jun, Diabetes type 2, uncontrolled E11.65 and Pure hypercholesterolemia E78.[address] [facility] [place] [address] [facility] [id number] [place] [id number] Jun, Diabetes type 2, uncontrolled E11.65 [facility] [address] [facility] [id number] [address] [place] [address] Mar, [facility] A[facility] M [address] [facility] [id number] [place] [id number] Mar, [facility] [place] [address] [place] [id number] [place] [id number] Mar, Diabetes type 2, uncontrolled E11.65 [facility] ANA M [address] [place] [id number] [place] [address], [place] [id number] Mar, [facility] [place] [address] [facility] [id number][place] [id number] August, Abdominal pain 789.00 and Frequency of u rination 788.41 [facility] [address] [place] [id number] [address] [place] [address] Jul, [facility] [address] [facility] [id number] [address] [place] [address] Jul, [facility] A[facility] M [address] [facility] [id number] [place] [id number] Feb, [facility] [address] [facility] [id number] [address] [place] [address] Feb, [facility] A[facility] M [address] [facility] [id number] [place] [id number] Feb, [facility] [address] [facility] [id number] [address] [place] [address] Feb, [facility] [address] [place] [id number] [address] [place] [address] Feb, [facility] [address] [id number] [address] [place] [address], [place] [address] Feb, [facility] A[facility] M [address] [id number] [place] [id number] Feb, [facility] [address] [id number] [address] [place] [address], [place] [address] Feb, [facility] M [address] [id number] [place] [id number] Jan, [facility] [address] [id number] [address] [place] [address], [place] [address] Jan, [facility] M [address] [id number] [place] [id number] Sep, [facility] [address] [id number] [address] [place] [address], [place] [address] Sep, [facility] A[facility] M [address] [id number] [place] [id number] August, [facility] [address] [id number] [address] [place] [address], [place] [address] August, [facility] [address] [id number] [address] [place] [address], [place] [address] Jul, [facility] M [address] [id number] [place] [id number] Jul, [facility] A[facility] M [address] [id number] [place] [id number] Jul, [facility] A[facility] M [address] [id number] [place] [id number] Jul, [facility] [address] [id number] [address] [place] [address], [place] [address] Jul, [facility] [address] [id number] [address] [place] [address], [place] [address] Jul, [facility] A[facility] M [address] [id number] [place] [id number] Jun, [facility] [address] [id number] [address] [place] [address], [place] [address] Jun, [facility] A[facility] M [address] [id number] [place] [id number] May, [facility] [address] [id number] [address] [place] [address], [place] [address] May, [facility] A[facility] M [address] [id number] [place] [id number] Apr, [facility] [address] [id number] [address] [place] [address], [place] [address] Apr, [facility] [address] [id number] [address] [place] [address], [place] [address] Apr, [facility] A[facility] M [address] [id number] [place] [id number] Apr, [facility] [address] [id number] [address] [place] [address], [place] [address] Apr, [facility] A[facility] M [address] [id number] [place] [id number] Jan, [facility] [address] [id number] [address] [place] [address], [place] [address] Jan, [facility] A[facility] M [address] [id number] [place] [id number] Jan, [facility] A[facility] M [address] [id number] [place] [id number] Dec, [facility] A[facility] M [address] [id number] [place] [id number] Nov, [facility] [address] [id number] [address] [place] [address], [place] [address] Nov, [facility] [address] [id number] [address] [place] [address], [place] [address] Nov, [facility] A[facility] M [address] [id number] [place] [id number] Nov, [facility] [address] [id number] [address] [place] [address], [place] [address] Nov, [facility] [address] [facility] [id number] 100[address] [place] [address] Nov, [facility] [address] [facility] [id number] [place] [id number] Nov, IMMUNIZATIONS No Known Immunizations SOCIAL HISTORY [...] work, hyp ertension, was seen at [facility] 04/09/16
--- OUTSIDE RECORDS SUMMARY | 2019-11-08 17:49 | XMS REPORT ---
Author Author Jennifer Echeverria [facility] Address [address] [place] [address] Care Team Providers Care Life Skills Trainer Name Role Phone CORA Echeverria Unavailable PROBLEMS Type Condition ICD9-CM Code ZHN42-CO Code Onset Dates Condition S tatus SNOMED Code Problem Diabetes type 2, uncontrolled E11.65 Active 126182109 Problem Type 2 diabetes mellitus wit h hyperglycemia, without long-term current use of insulin E11.65 Active 47395188 Problem Pure hypercholesterolemia E78.0 Acti ve 289987452 Problem Anhedonia R45.84 Active 58586016 Problem Anxiety F41.9 Active 98435234 Problem Morbid obesity, unspecified obesity type E66.01 Active 706578593 Problem Uncontrolled type 2 diabetes mellitus without complication, without long-term current use of insulin E11.65 Active 624758614 Problem Moderate single current episode of major depressive disord er F32.1 Active 09366712 Problem Current severe episode of ma 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 without prior episode F32.2 Active 60696214 Problem Difficulty sleeping G47.9 Active 990818710 Problem Chronic GERD K21.9 Active 2765193 09 Problem Mixed hyperlipidemia E78.2 Active 789870712 Problem Irritability R45.4 Active 3636162 7 Problem Other obesity due to excess calories E66.09 Active 007115175 Problem Body mass index (BMI) of 45.0-49.9 in adult Z68.42 Active 104583013 Problem Pure hypercholesterolemia, unspecified E78.00 Active 001110506 ALLERGIES No Information ENCOUNTERS Encounter Location Date Diagnosis [place] [address] [facility] [place] [address] Jan, Caries K02.9 [place] [address] [facility] [place] [address] Jan, Dental examination Z01.20 and Caries K02 .9 [facility] [address] [facility] [facility] [address] [id number] [place] [id number] Apr, [place] [id number] [place] [address] [id number] Mar, Chronic GERD K21.9 and Diarrhea R19.7 [id number] [id number] Mar, BMI 45.0-49.9, adult Z68.42 and Viral syndrome B34.[address] [id number] Feb, URI, acute J06.9 and BMI 45.0-49.9, adult Z68.42 [place] [address] [facility] [address] [id number] [place] [id number] Oct, Dental examination Z01.20 [facility] [address] [place] [address] [place] [id number] Oct, Dental examination Z01.[address] [place] [id number] August, BMI 45.0-49.9, adult Z68.42 ; Diabetes t ype 2, uncontrolled E11.65 and Mixed hyperlipidemia E78.2 [facility] [address] [place] [address] AVE [id number] [place] [id number] August, Dental examination Z01.20 [facility] [address] [facility] [place] [address] Jul, Current severe episode of major depressi ve disorder without psychotic features without prior episode F32.2 [address] [id number] Jun, Mixed hyperlipidemia E78.2 ; Diabetes type 2, uncontrolled E11.65 ; BMI 45.0-49.9, adult Z68.42 ; Stressful life event affecting family Z63.79 ; BCP ( control pills) initiation Z30.011 and Anxiety F41.[address] [place] [address] [id number] May, Diabetes type 2, uncontrolled E11.65 ; Mixed hyperlipidemia E78.2 ; Current severe episode of major depressive disorder without psychotic features without prior episode F32.2 ; Vaginal discharge N89.8 ; Vision changes H53.9 and BMI 45.0-49.9, adult Z68.[address] [id number] May, Type 2 diabetes mellitus with hyperglycemia, without long-term current use of insulin E11.65 and Mixed hyperlipidemia E78.[address] [id number] May, Type 2 diabetes mellitus with hyperglycemia, without long-term current use of insulin E11.[address] [id number] May, Dental examination Z01.[address] [id number] May, Dental examination Z01.[address] [id number] Apr, Dental examination Z01.[address] [id number] Jan, Mixed hyperlipidemia E78.2 and Pure hypercholesterolemia, unspecified E78.[address] [id number] Jan, Mid- back pain, acute M54.9 ; [...] adult Z68.42 and BMI 45.0-49.9, adult Z68.[address] [id number] Dec, Diabetes type 2, uncontrolled E11.65 ; Morbid obesity, unspecified obesity type E66.01 ; Mixed hyperlipidemia E78.2 ; Moderate single current episode of major depressive disorder F32.1 ; Irritability R45.4 ; Dysuria R30.0 and BCP ( control pills) initiation Z30.011 [facility] [address] [facility] [place] [id number] Nov, Dental examination Z01.[address] [id number] Nov, Right wrist pain M25.[address] [id number] Jul, BCP ( control pills) initiation Z30.[address] [id number] Jun, Left otitis media, unspecified chronicity, unspecified otitis media type H66.92 ; Morbid obesity, unspecified obesity type E66.01 ; Neck pain on left side M54.2 and Uncontrolled type 2 diabetes mellitus without complication, without long- term current use of insulin E11.[address] [id number] Apr, Anxiety F41.9 ; Anhedonia R45.84 ; Difficulty sleeping G47.9 ; Type 2 diabetes mellitus with hyperglycemia, without long-term current use of insulin E11.65 ; control counseling Z30.9 ; BCP ( control pills) initiation Z30.011 and Mixed hyperlipidemia E78.[address] [id number] Oct, Diabetes type 2, uncontrolled E11.65 and Pure hypercholesterolemia E78.0 [facility] [address] [place] [id number] [place] [address] August, [address] [id number] Jun, Diabetes type 2, uncontrolled E11.65 and Pure hypercholesterolemia E78.[address] [id number] Jun, Diabetes type 2, uncontrolled E11.65 [facility] [address] [address] Mar, [address] [place] [id number] Mar, [facility] [place] [id number] [place] [address] [id number] Mar, Diabetes type 2, uncontrolled E11.65 [facility] [place] [address] [id number] Mar, [facility] [place] [address] [id number] [id number] August, Abdominal pain 789.00 and Frequency of u rination 788.41 [facility] [address] [address] Jul, [facility] [address] [address] Jul, [facility] [place] [address] [id number] Feb, [facility] [address] [address] Feb, [facility] [place] [id number] [place] [address] [id number] Feb, [facility] [address] [address] Feb, [facility] [address] [address] Feb, [facility] [address] [address] Feb, [facility] [place] [id number] [place] [address] [id number] Feb, [facility] [address] [address] Feb, [facility] [address] [id number] Jan, [facility] [address] [address] Jan, [facility] [address] [id number] Sep, [facility] [address] [facility] [place] [address] Sep, [facility] [address] [id number] [id number] August, [facility] [address] [place] [id number] [place] [address] August, [facility] [address] [place] [address] [id number] [place] [address] Jul, [facility] M [address] [id number] [place] [id number] Jul, [facility] M [address] [place] [id number] [id number] Jul, [facility] [address] [address] [id number] [id number] Jul, [facility] [address] [place] [address] [id number] [place] [address] Jul, [facility] [address] [id number] [place] [address] Jul, [facility] [address] [id number] [id number] Jun, [facility] [address] [id number] [place] [address] Jun, [facility] M [address] [facility]757[place] [id number] May, [facility] [address] [address] [id number] [place] [address] May, [facility] M [address] [place] [address] 51048757[place] [id number] Apr, [facility] [address] [place] [address] [id number] [place] [address] Apr, [facility] [address] [facility] [place] [address] Apr, [facility] M [address] [facility]07757[place] [id number] Apr, [facility] [address] [facility] [place] [address] Apr, [facility] [address] [facility]757G [place] [id number] Jan, [facility] [id number] [place] [address] Jan, [facility] 120 [facility]757[place] [id number] Jan, [facility] [address] [place] [id number] [place] [address] [id number] Dec, [facility] [address] [id number] [place] [address] [id number] Nov, [facility] [address] [address] Nov, [facility] [address] [address] Nov, [place] [id number] [place] [address] [id number] Nov, [facility] [id number] [place] [address] Nov, [facility] [id number] [place] [address] Nov, [place] [id number] [place] [address] [id number] Nov, IMMUNIZATIONS No Known Immunizations SOCIAL HISTORY Never Assessed REASON FOR VISIT PLAN OF CARE VITAL SIGNS Height 64 in 2013-04-29 Weight 295 lbs 2013-04-29 Temperature 98.2 degrees Fahrenheit 2013-04-29 Heart Rate 100 bpm 2013-04-29 Respiratory Rate 2013-04-29 Blood pressure systolic 128 mmHg 2013-04-29 Blood pressure diastolic 70 mmHg 2013-04-29 MEDICATIONS Unknown Medications RESULTS No Results PROCEDURES Procedure Date Ordered Result Body Site LIPID PANEL Apr 29, 2013 IKE CHAPMAN* Apr 29, 2013 INSTRUCTIONS MEDICATIONS ADMINISTERED No Known Medications MEDICAL [...] at work, hyp ertension, was seen [facility] 04/09/16
--- OUTSIDE RECORDS SUMMARY | 2019-11-08 17:49 | XMS REPORT ---
Author Author Jennifer Jade Organization [facility] Address [address] [place] [address] Care Team Providers Care Jack Machine Operator Name Role Phone DOUGIE Jade Unavailable PROBLEMS Type Condition ICD9-CM Code PEF41-CB Code Onset Dates Condition S tatus SNOMED Code Problem Diabetes type 2, uncontrolled E11.65 Active 777357654 Problem Type 2 diabetes mellitus wit h hyperglycemia, without long-term current use of insulin E11.65 Active 55665782 Problem Pure hypercholesterolemia E78.0 Acti ve 596932529 Problem Anhedonia R45.84 Active 66542281 Problem Anxiety F41.9 Active 52141575 Problem Morbid obesity, unspecified obesity type E66.01 Active 728135120 Problem Uncontrolled type 2 diabetes mellitus without complication, without long-term current use of insulin E11.65 Active 156117135 Problem Moderate single current episode of major depressive disord er F32.1 Active 25459271 Problem Current severe episode of ma 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 without prior episode F32.2 Active 98601058 Problem Difficulty sleeping G47.9 Active 167733599 Problem Chronic GERD K21.9 Active 4277078 09 Problem Mixed hyperlipidemia E78.2 Active 753123552 Problem Irritability R45.4 Active 0912348 7 Problem Other obesity due to excess calories E66.09 Active 496397086 Problem Body mass index (BMI) of 45.0-49.9 in adult Z68.42 Active 787841061 Problem Pure hypercholesterolemia, unspecified E78.00 Active 447214457 ALLERGIES No Information ENCOUNTERS Encounter Location Date Diagnosis [place] [address] [facility] [id number] [place] [address] 09 Jul, 2019 Acute non-recurrent frontal sinusitis J0 1.10 [place] [address] [facility] [id number] [place] [address] Jul, [facility] [address] [facility] [id number] [address] [place] [phone] Jan, Caries K02.9 [facility] [address] [facility] [id number] [address] [place] [phone] Jan, Dental examination Z01.20 an d Caries K02.[address] [place] [address] [facility] [id number] [place] [id number] Apr, [facility] [place] [address] [facility] [id number] [place] [id number] Mar, Chronic GERD K21.9 and Diarrhea R19.7 [facility] [address] [id number] [place] [id number] Mar, BMI 45.0-49.9, adult Z68.42 and Viral sy ndrome B34.9 [place] [id number] [place] [address], [place] [id number] Feb, URI, acute J06.9 and BMI 45.0-49.9, adul t Z68.[address] [place] [address] [id number] [place] [address] [id number] Oct, Dental examination Z01.[id number] [place] [address] [id number] Oct, Dental examination Z01.[id number] [place] [address] [id number] August, BMI 45.0-49.9, adult Z68.42 ; Diabetes t ype 2, uncontrolled E11.65 and Mixed hyperlipidemia E78.[address] [place] [id number] [place] [address] [id number] August, Dental examination Z01.20 [facility] [address] [facility] [id number] [address] [place] [phone] Jul, Current severe episode of ma 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 without prior episode F32.2 [facility] [address] [facility] [id number] [place] [id number] Jun, Mixed hyperlipidemia E78.2 ; Diabetes ty pe 2, uncontrolled E11.65 ; BMI 45.0- 49.9, adult Z68.42 ; Stressful life event affecting family Z63.79 ; BCP ( control pills) initiation Z30.011 and Anxiety F41.[address] [id number] [place] [id number] May, Diabetes type 2, uncontrolled E11.65 ; M ixed hyperlipidemia E78.2 ; Current severe episode of major depressive disorder without psychotic features without prior episode F32.2 ; Vaginal discharge N89.8 ; Vision changes H53.9 and BMI 45.0-49.9, adult Z68.42 [facility] [id number] [place] [id number] May, Type 2 diabetes mellitus with hyperglyce mere, without long-term current use of insulin E11.65 and Mixed hyperlipidemia E78.2 [id number] [place] [facility] [place] [id number] May, Type 2 diabetes mellitus with hyperglyce mere, without long-term current use of insulin E11.65 [facility] [place] [address] [facility] [facility] [address] [id number] [id number] May, Dental examination Z01.20 [facility] [place] [address] [facility] [facility] [address] [id number] [id number] May, Dental examination Z01.20 [facility] [place] [address] [place] [address] [id number] [place] [address] [id number] Apr, Dental examination Z01.20 [facility] [address] [id number] [place] DEPT. S [id number] Jan, Mixed hyperlipidemia E78.2 and Pure hype rcholesterolemia, unspecified E78.00 [facility] [address] [id number] [place] [id number] Jan, Mid-back pain, acute M54.9 ; Anxiety [...] adult Z68.42 and BMI 45.0-49.9, adult Z68.42 [facility] [address] [id number] [place] [id number] Dec, 2017 Diabetes type 2, uncontrolled E11.65 ; M orbid obesity, unspecified obesity type E66.01 ; Mixed hyperlipidemia E78.2 ; Moderate single current episode of major depressive disorder F32.1 ; Irritability R45.4 ; Dysuria R30.0 and BCP ( control pills) initiation Z30.011 [facility] [address] [id number] [address] [place] [id number] Nov, Dental examination Z01.20 [facility] [id number] [place] [id number] Nov, Right wrist pain M25.531 [facility] [address] [place] [id number] [place] [id number] Jul, BCP ( control pills) initiation Z30 .011 [facility] [id number] [place] [id number] Jun, Left otitis media, unspecified chronicit y, unspecified otitis media type H66.92 ; Morbid obesity, unspecified obesity type E66.01 ; Neck pain on left side M54.2 and Uncontrolled type 2 diabetes mellitus without complication, without long- term current use of insulin E11.65 [facility] [address] [facility] [id number] [place] [id number] Apr, Anxiety F41.9 ; Anhedonia R45.84 ; Diffi culty sleeping G47.9 ; Type 2 diabetes mellitus with hyperglycemia, without long-term current use of insulin E11.65 ; control counseling Z30.9 ; BCP ( control pills) initiation Z30.011 and Mixed hyperlipidemia E78.2 [facility] [address] [facility] [id number] [place] [id number] Oct, Diabetes type 2, uncontrolled E11.65 and Pure hypercholesterolemia E78.0 [facility] [place] [address] [facility] [id number] [address] [place] [phone] August, [facility] [address] [facility] [id number] [place] [id number] Jun, Diabetes type 2, uncontrolled E11.65 and Pure hypercholesterolemia E78.0 [facility] [place] [address] [facility] [id number] [place] [id number] Jun, Diabetes type 2, uncontrolled E11.65 [facility] [place] [address] [facility] [id number] [address] [place] [phone] Mar, [facility] [address] [facility] [id number] [place] [id number] Mar, [facility] [place] [address] [facility] [id number] [place] [id number] Mar, Diabetes type 2, uncontrolled E11.65 [facility] [place] [address] [facility] [id number] [place] [id number] Mar, [facility] [place] [facility] [facility] [id number] [place] [id number] August, Abdominal pain 789.00 and Frequency of u rination 788.41 [facility] [address] [facility] [id number] [address] [place] [id number] Jul, [facility] [address] [facility] [id number] [address] [place] [phone] Jul, [facility] [place] [address] [facility] [id number] [place] [id number] Feb, [facility] [address] [facility] [id number] [address] [place] [id number] Feb, [facility] [place] [address] [facility] [id number] [place] [id number] Feb, [facility] [address] [facility] [id number] [address] [place] [phone] Feb, [facility] [address] [facility] [id number] [address] [place] [phone] Feb, [facility] [address] [id number] [address] [place] [address], [place] [address] Feb, [facility] [address] [id number] [place] [id number] Feb, [facility] [address] [id number] [address] [place] [address], [place] [address] Feb, [facility] [address] [id number] [place] [id number] Jan, [facility] [address] [id number] [address] [place] [address], [place] [address] Jan, [facility] [address] [id number] [place] [id number] Sep, [facility] [address] [id number] [address] [place] [address], [place] [address] Sep, [facility] [place] [address] [id number] [place] [id number] August, [facility] [address] [id number] [address] [place] [address], [place] [address] August, [facility] [address] [id number] [address] [place] [address], [place] [address] Jul, [facility] [address] [id number] [place] [id number] Jul, [facility] [address] [id number] [place] [id number] Jul, [facility] [place] [address] [id number] [place] [id number] Jul, [facility] [address] [id number] [address] [place] [address], [place] [address] Jul, [facility] [address] [id number] [address] [place] [address], [place] [address] Jul, [facility] [address] [id number] [place] [id number] Jun, [facility] [address] [id number] [address] [place] [address], [place] [address] Jun, [facility] [address] [id number] [place] [id number] May, [facility] [address] [id number] [address] [place] [address], [place] [address] May, [facility] [address] [id number] [place] [id number] Apr, [facility] [address] [id number] [address] [place] [address], [place] [address] Apr, [facility] [address] [id number] [address] [place] [phone] Apr, [facility] [address] [id number] [place] [id number] Apr, [facility] [address] [id number] [address] [place] [address], [place] [address] Apr, [facility] [address] [id number] [place] [id number] Jan, [facility] [address] [id number] [address] [place] [address], [place] [address] Jan, [facility] [address] [id number] [place] [id number] Jan, [facility] [address] [id number] [place] [id number] Dec, [facility] [address] [id number] [place] [id number] Nov, [facility] [address] [id number] [address] [place] [address], [place] [address] Nov, [facility] [address] [id number] [address] [place] [address], [place] [address] Nov, [facility] [address] [id number] [place] [id number] Nov, [facility] [address] [id number] [address] [place] [address], [place] [address] Nov, [facility] [address] [id number] [address] [place] [address] Nov, [facility] [address] [id number] [place] [id number] Nov, IMMUNIZATIONS No Known Immunizations SOCIAL HISTORY Never Assessed REASON FOR VISIT PLAN OF CARE VITAL SIGNS Weight 225.2 lbs 2012-11-16 Temperature 98.2 degrees Fahrenheit 2012-11-16 Heart Rate 72 bpm 2012-11-16 Respiratory Rate 18 2012-11-16 Blood pressure systolic 127 mmHg 2012-11-16 Blood pressure diastolic 85 mmHg 2012-11-16 MEDICATIONS No Known Medications RESULTS No Results PROCEDURES Procedure Date Ordered Result Body Site CULTURE, BACTERIA, OTHER Nov 16, 2012 VENIPUNCT, ROUTINE* Nov 16, 2012 CYTOPATH C/V AUTO FLUID REDO Nov 16, 2012 ASSAY THYROID STIM HORMONE Nov 16, 2012 CHYLMD TRACH, DNA, AMP PROBE Nov 16, 2012 ASSAY OF TOTAL TESTOSTERONE Nov 16, 2012 ASSAY OF INSULIN Nov 16, 2012 GLYCATED HEMOGLOBIN TEST Nov 16, 2012 URINE TEST Nov 16, 2012 TRICHOMONAS VAGIN, DIR PROBE Nov 16, 2012 LIPID PANEL Nov 16, 2012 COMPLETE CBC W/AUTO DIFF WBC Nov 16, 2012 COMPREHEN METABOLIC PANEL Nov 16, 2012 SCR PAP SMER;NEW PT OBTAIN PREP&CONVY-LAB Nov 16, 2012 INSTRUCTIONS MEDICATIONS ADMINISTERED No Known Medications MEDICAL [...] work, hyp ertension, was seen at [facility] 04/09/16
--- OUTSIDE RECORDS SUMMARY | 2019-11-08 17:49 | XMS REPORT ---
Author Author Jennifer Echeverria Organization [facility] Address [address] [place] [address] Care Team Providers Care Pan Puller Name Role Phone CORA Echeverria Unavailable PROBLEMS Type Condition ICD9-CM Code FBB89-DH Code Onset Dates Condition S tatus SNOMED Code Problem Diabetes type 2, uncontrolled E11.65 Active 459599340 Problem Type 2 diabetes mellitus wit h hyperglycemia, without long-term current use of insulin E11.65 Active 36716493 Problem Pure hypercholesterolemia E78.0 Acti ve 657405378 Problem Anhedonia R45.84 Active 57169166 Problem Anxiety F41.9 Active 75464049 Problem Morbid obesity, unspecified obesity type E66.01 Active 340188278 Problem Uncontrolled type 2 diabetes mellitus without complication, without long-term current use of insulin E11.65 Active 888704914 Problem Moderate single current episode of major depressive disord er F32.1 Active 54378990 Problem Current severe episode of ma 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 without prior episode F32.2 Active 04819693 Problem Difficulty sleeping G47.9 Active 724548806 Problem Chronic GERD K21.9 Active 8304493 09 Problem Mixed hyperlipidemia E78.2 Active 173427554 Problem Irritability R45.4 Active 1538167 7 Problem Other obesity due to excess calories E66.09 Active 080386144 Problem Body mass index (BMI) of 45.0-49.9 in adult Z68.42 Active 954710986 Problem Pure hypercholesterolemia, unspecified E78.00 Active 427163875 ALLERGIES No Information ENCOUNTERS Encounter Location Date Diagnosis [place] [address] [facility] [id number] [place] [address] 09 Jul, 2019 Acute non-recurrent frontal sinusitis J0 1.10 [place] [address] [facility] [id number] [place] [address] Jul, [facility] [address] [facility] [id number] [address] [place] [address] Jan, Caries K02.9 [facility] [address] [facility] [id number] [address] [place] [address] Jan, Dental examination Z01.20 an d Caries K02.9 [place] [address] [facility] [id number] [place] [address] [id number] Apr, [facility] [address] [facility] [id number] [place] [id number] Mar, Chronic GERD K21.9 and Diarrhea R19.[address] [id number] [place] [id number] Mar, BMI 45.0-49.9, adult Z68.42 and Viral sy ndrome B34.[address] [id number] [place] [id number] Feb, URI, acute J06.9 and BMI 45.0-49.9, adul t Z68.42 [place] [address] [facility] [address] [id number] [place] [address] [id number] Oct, Dental examination Z01.20 [place] [address] [facility] [address] [id number] [place] [address] [id number] Oct, Dental examination Z01.[address] [id number] [place] [address] [id number] August, BMI 45.0-49.9, adult Z68.42 ; Diabetes t ype 2, uncontrolled E11.65 and Mixed hyperlipidemia E78.2 [place] [address] [facility] [id number] [place] [address] [id number] August, Dental examination Z01.20 [facility] [address] [facility] [id number] [address] [place] [address] Jul, Current severe episode of ma 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 without prior episode F32.2 [facility] 120 [facility] [id number] [place] [id number] Jun, Mixed hyperlipidemia E78.2 ; Diabetes ty pe 2, uncontrolled E11.65 ; BMI 45.0- 49.9, adult Z68.42 ; Stressful life event affecting family Z63.79 ; BCP ( control pills) initiation Z30.011 and Anxiety F41.[address] [id number] [place] [id number] May, Diabetes type 2, uncontrolled E11.65 ; M ixed hyperlipidemia E78.2 ; Current severe episode of major depressive disorder without psychotic features without prior episode F32.2 ; Vaginal discharge N89.8 ; Vision changes H53.9 and BMI 45.0-49.9, adult Z68.42 [id number] [id number] May, Type 2 diabetes mellitus with hyperglyce mere, without long-term current use of insulin E11.65 and Mixed hyperlipidemia E78.2 [facility] [id number] [id number] May, Type 2 diabetes mellitus with hyperglyce mere, without long-term current use of insulin E11.65 [facility] [place] [address] [facility] [address] [id number] [id number] May, Dental examination Z01.20 [facility] [place] [address] [facility] [address] [id number] [id number] May, Dental examination Z01.20 [facility] [place] [address] [place] [address] A[id number] [place] [address] [id number] Apr, Dental examination Z01.20 [facility] [address] [id number] [place] [id number] Jan, Mixed hyperlipidemia E78.2 and Pure hype rcholesterolemia, unspecified E78.00 [facility] [address] [id number] [place] [id number] Jan, Mid-back pain, acute M54.9 ; Anxiety [...] adult Z68.42 and BMI 45.0-49.9, adult Z68.42 [facility] [address] [id number] [place] [id number] Dec, 2017 Diabetes type 2, uncontrolled E11.65 ; M orbid obesity, unspecified obesity type E66.01 ; Mixed hyperlipidemia E78.2 ; Moderate single current episode of major depressive disorder F32.1 ; Irritability R45.4 ; Dysuria R30.0 and BCP ( control pills) initiation Z30.011 [facility] [address] [id number] [address] [id number] Nov, Dental examination Z01.20 [facility] [id number] [place] [id number] Nov, Right wrist pain M25.531 [facility] [address] [place] [id number] [place] [id number] Jul, BCP ( control pills) initiation Z30 .011 [facility] [address] [place] [id number] [place] [id number] Jun, Left otitis media, unspecified chronicit y, unspecified otitis media type H66.92 ; Morbid obesity, unspecified obesity type E66.01 ; Neck pain on left side M54.2 and Uncontrolled type 2 diabetes mellitus without complication, without long- term current use of insulin E11.65 [facility] [address] [id number] [place] [id number] Apr, Anxiety F41.9 ; Anhedonia R45.84 ; Diffi culty sleeping G47.9 ; Type 2 diabetes mellitus with hyperglycemia, without long-term current use of insulin E11.65 ; control counseling Z30.9 ; BCP ( control pills) initiation Z30.011 and Mixed hyperlipidemia E78.2 [facility] [address] [facility] [id number] [place] [id number] Oct, Diabetes type 2, uncontrolled E11.65 and Pure hypercholesterolemia E78.[address] [facility] [address] [facility] [id number] [address] [place] [address] August, [facility] A[place] M [address] [facility] [id number] [place] [id number] Jun, Diabetes type 2, uncontrolled E11.65 and Pure hypercholesterolemia E78.0 [facility] [place] 120 [facility] [id number] [place] [id number] Jun, Diabetes type 2, uncontrolled E11.[address] [facility] [address] [facility] [id number] [address] [place] [address] Mar, [facility] ANA M [address] [facility] [id number] [place] [id number] Mar, [facility] [place] [address] [place] [id number] [place] [id number] Mar, Diabetes type 2, uncontrolled E11.65 [facility] ANA M [address] [place] [id number] [place] [address], [place] [id number] Mar, [facility] [place] [address] [facility] [address] [id number][place] [id number] August, Abdominal pain 789.00 and Frequency of u rination 788.[address] [facility] [address] [place] [id number] [address] [place] [address] Jul, [facility] [address] [facility] [id number] [address] [place] [address] Jul, [facility] ANA M [address] [facility] [id number] [place] [id number] Feb, [facility] [address] [facility] [id number] [address] [place] [address] Feb, [facility] ANA M [address] [facility] [id number] [place] [id number] Feb, [facility] [address] [facility] [id number] [address] [place] [address] Feb, [facility] [address] [place] [id number] [address] [place] [address] Feb, [facility] [address] [id number] [address] [place] [address], [place] [address] Feb, [facility] ANA M [address] [id number] [place] [id number] Feb, [facility] [address] [id number] [address] [place] [address], [place] [address] Feb, [facility] ANA M [address] [id number] [place] [id number] Jan, [facility] [address] [id number] [address] [place] [address], [place] [address] Jan, [facility] ANA M [address] [id number] [place] [id number] Sep, [facility] [address] [id number] [address] [place] [address], [place] [address] Sep, [facility] A[facility] M [address] [id number] [place] [id number] August, [facility] [address] [id number] [address] [place] [address], [place] [address] August, [facility] [address] [id number] [address] [place] [address], [place] [address] Jul, [facility] A[facility] M [address] [id number] [place] [id number] Jul, [facility] ANA M [address] [id number] [place] [id number] Jul, [facility] A[facility] M [address] [id number] [place] [id number] Jul, [facility] [address] [id number] [address] [place] [address], [place] [address] Jul, [facility] [address] [id number] [address] [place] [address], [place] [address] Jul, [facility] ANA M [address] [id number] [place] [id number] Jun, [facility] [address] [id number] [address] [place] [address], [place] [address] Jun, [facility] ANA M [address] [id number] [place] [id number] May, [facility] [address] [id number] [address] [place] [address], [place] [address] May, [facility] ANA M [address] [id number] [place] [id number] Apr, [facility] [address] [id number] [address] [place] [address], [place] [address] Apr, [facility] [address] [id number] [address] [place] [address], [place] [address] Apr, [facility] ANA M [address] [id number] [place] [id number] Apr, [facility] [address] [id number] [address] [place] [address], [place] [address] Apr, [facility] ANA M [address] [id number] [place] [id number] Jan, [facility] [address] [id number] [address] [place] [address], [place] [address] Jan, [facility] ANA M [address] [id number] [place] [id number] Jan, [facility] ANA M [address] [id number] [place] [id number] Dec, [facility] ANA M [address] [id number] [place] [id number] Nov, [facility] [address] [id number] [address] [place] [address], [place] [address] Nov, [facility] [address] [id number] [address] [place] [address], [place] [address] Nov, [facility] ANA M [address] [id number] [place] [id number] Nov, [facility] [address] [id number] [address] [place] [address], [place] [address] Nov, [facility] [address] [facility] [id number] 100[address] [place] [address] Nov, [facility] [address] [facility] [id number] [place] [id number] Nov, IMMUNIZATIONS No Known Immunizations SOCIAL HISTORY Never Assessed REASON FOR VISIT PLAN OF CARE VITAL SIGNS Height 64 in 2012-12-17 Weight 284 lbs 2012-12-17 Temperature 98.9 degrees Fahrenheit 2012-12-17 Heart Rate 90 bpm 2012-12-17 Respiratory Rate 18 2012-12-17 Blood pressure systolic 108 mmHg 2012-12-17 Blood pressure diastolic 72 mmHg 2012-12-17 MEDICATIONS No Known Medications RESULTS No Results PROCEDURES Procedure Date Ordered Result Body Site URINE TEST Dec 17, 2012 INSTRUCTIONS MEDICATIONS ADMINISTERED No Known Medications [...] work, hyp ertension, [facility]
--- OUTSIDE RECORDS SUMMARY | 2019-11-08 17:50 | XMS REPORT ---
Author Author Jennifer Echeverria [facility] Address [address] [place] [address] Care Team Providers Care Baggage Handler Name Role Phone CORA Echeverria Unavailable PROBLEMS Type Condition ICD9-CM Code XYI26-FD Code Onset Dates Condition S tatus SNOMED Code Problem Diabetes type 2, uncontrolled E11.65 Active 098905242 Problem Type 2 diabetes mellitus wit h hyperglycemia, without long-term current use of insulin E11.65 Active 18178324 Problem Pure hypercholesterolemia E78.0 Acti ve 328662143 Problem Anhedonia R45.84 Active 69218618 Problem Anxiety F41.9 Active 40827098 Problem Morbid obesity, unspecified obesity type E66.01 Active 452926177 Problem Uncontrolled type 2 diabetes mellitus without complication, without long-term current use of insulin E11.65 Active 457120304 Problem Moderate single current episode of major depressive disord er F32.1 Active 06724213 Problem Current severe episode of ma 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 without prior episode F32.2 Active 69486713 Problem Difficulty sleeping G47.9 Active 413593518 Problem Chronic GERD K21.9 Active 3460431 09 Problem Mixed hyperlipidemia E78.2 Active 149519783 Problem Irritability R45.4 Active 3923138 7 Problem Other obesity due to excess calories E66.09 Active 142277969 Problem Body mass index (BMI) of 45.0-49.9 in adult Z68.42 Active 762484571 Problem Pure hypercholesterolemia, unspecified E78.00 Active 829410478 ALLERGIES No Information ENCOUNTERS Encounter Location Date Diagnosis [place] [address] [facility]70 [place] [address] Jan, Caries K02.9 [place] [address] [facility] [place] [address] Jan, Dental examination Z01.20 [address] K02 .[address] [facility] [address] [id number] [place] [id number] Apr, [place] [id number] [place] [address] [id number] Mar, Chronic GERD K21.9 and Diarrhea R19.7 [id number] [id number] Mar, BMI 45.0-49.9, adult Z68.42 and Viral syndrome B34.[address] [id number] Feb, URI, acute J06.9 and BMI 45.0-49.9, adult Z68.42 [place] [address] [facility] [address] [id number] [place] [id number] Oct, Dental examination Z01.20 [facility] [address] [place] [address] [place] [id number] Oct, Dental examination Z01.[address] [place] [id number] August, BMI 45.0-49.9, adult Z68.42 ; Diabetes t ype 2, uncontrolled E11.65 and Mixed hyperlipidemia E78.2 [facility] [address] [place] [address] AVE [id number] [place] [id number] August, Dental examination Z01.20 [facility] [place] [address] [facility] [place] [address] Jul, Current severe episode of major depressi ve disorder without psychotic features without prior episode F32.[address] [address] Jun, Mixed hyperlipidemia E78.2 ; Diabetes type 2, uncontrolled E11.65 ; BMI 45.0-49.9, adult Z68.42 ; Stressful life event affecting family Z63.79 ; BCP ( control pills) initiation Z30.011 and Anxiety F41.[address] [place] [address] [id number] May, Diabetes type 2, uncontrolled E11.65 ; Mixed hyperlipidemia E78.2 ; Current severe episode of major depressive disorder without psychotic features without prior episode F32.2 ; Vaginal discharge N89.8 ; Vision changes H53.9 and BMI 45.0-49.9, adult Z68.[address] [id number] May, Type 2 diabetes mellitus with hyperglycemia, without long-term current use of insulin E11.65 and Mixed hyperlipidemia E78.[address] [id number] May, Type 2 diabetes mellitus with hyperglycemia, without long-term current use of insulin E11.[address] [id number] May, Dental examination Z01.[address] [id number] May, Dental examination Z01.[address] [id number] Apr, Dental examination Z01.[address] [id number] Jan, Mixed hyperlipidemia E78.2 and Pure hypercholesterolemia, unspecified E78.[address] [id number] Jan, Mid- back pain, acute M54.9 ; [...] adult Z68.42 and BMI 45.0-49.9, adult Z68.[address] [id number] Dec, Diabetes type 2, uncontrolled E11.65 ; Morbid obesity, unspecified obesity type E66.01 ; Mixed hyperlipidemia E78.2 ; Moderate single current episode of major depressive disorder F32.1 ; Irritability R45.4 ; Dysuria R30.0 and BCP ( control pills) initiation Z30.011 [facility] [address] [facility]757[address] [place] [id number] Nov, Dental examination Z01.[address] [id number] Nov, Right wrist pain M25.[address] [id number] Jul, BCP ( control pills) initiation Z30.[address] [id number] Jun, Left otitis media, unspecified chronicity, unspecified otitis media type H66.92 ; Morbid obesity, unspecified obesity type E66.01 ; Neck pain on left side M54.2 and Uncontrolled type 2 diabetes mellitus without complication, without long- term current use of insulin E11.[address] [id number] Apr, Anxiety F41.9 ; Anhedonia R45.84 ; Difficulty sleeping G47.9 ; Type 2 diabetes mellitus with hyperglycemia, without long-term current use of insulin E11.65 ; control counseling Z30.9 ; BCP ( control pills) initiation Z30.011 and Mixed hyperlipidemia E78.[address] [id number] Oct, Diabetes type 2, uncontrolled E11.65 and Pure hypercholesterolemia E78.0 [facility] [place] [address] [place] [id number] [place] [address] August, [address] [id number] Jun, Diabetes type 2, uncontrolled E11.65 and Pure hypercholesterolemia E78.[address] [id number] Jun, Diabetes type 2, uncontrolled E11.65 [facility] [place] [address] [address] Mar, [address] [place] [id number] Mar, [facility] [place] [id number] [place] [address] [id number] Mar, Diabetes type 2, uncontrolled E11.65 [facility] [place] [id number] Mar, [facility] [place] [address] [facility] [id number] [id number] August, Abdominal pain 789.00 and Frequency of u rination 788.41 [facility] [address] [address] Jul, [facility] [address] [address] Jul, [facility] [place]475[place] [id number] Feb, [facility] [address] [address] Feb, [facility] [place] [id number] [place] [address] [id number] Feb, [facility] [address] [address] Feb, [facility] [address] [address] Feb, [facility] [address] [address] Feb, [facility] [place] [id number] [place] [address] [id number] Feb, [facility] [address] [address] Feb, [facility] [address] [id number] Jan, [facility] [address] [address] Jan, [facility] [address] [id number] Sep, [facility] [address] [facility]7570 [place] [address] Sep, [facility] A[facility] M [address] [place] [id number] [id number] August, [facility] [address] [place] [address] [id number] [place] [address] August, [facility] [address] [place] [address] [id number] [place] [address] Jul, [facility] A[facility] M [address] [place] [address] [id number] [id number] Jul, [facility] A[facility] M [address] [place] [id number] [id number] Jul, [facility] A[facility] M [address] [place] [id number] [id number] Jul, [facility] [address] [place] [address] [id number] [place] [address] Jul, [facility] [address] [place] [address] [id number] [place] [address] Jul, [facility] A[facility] M [address] [place] [address] [id number] [id number] Jun, [facility] [address] [place] [id number] [place] [address] Jun, [facility] A[facility] M 120 [facility] [id number] May, [facility] [address] [place] [address] [id number] [place] [address] May, [facility] A[facility] M [address] [place] [id number] [id number] Apr, [facility] [address] [place] [address] [id number] [place] [address] Apr, [facility] [address] [facility] [place] [address] Apr, [facility] A[facility] M 120 [facility]07[place] [id number] Apr, [facility] [address] [facility] [place] [address] Apr, [facility] 120 [facility]07757G [place] [id number] Jan, [facility] [place] [address] [place] [id number] [place] [address] Jan, [address]757[place] [id number] Jan, [id number] [id number] Dec, [place] [id number] [place] [address] [id number] Nov, [facility] [place] [address] [address] Nov, [facility] [place] [address] [address] Nov, [place] [id number] [id number] Nov, [facility] [place] [address] [place] [id number] [place] [address] Nov, [facility] [place] [address] [place] [address] [id number] [place] [address] Nov, [place] [id number] [place] [address] [id number] Nov, IMMUNIZATIONS No Known Immunizations SOCIAL HISTORY Never Assessed REASON FOR VISIT PLAN OF CARE VITAL SIGNS MEDICATIONS Unknown Medications RESULTS No Results PROCEDURES [...] at work, hyp ertension, was seen at [facility] 04/09/16
--- OUTSIDE RECORDS SUMMARY | 2019-11-08 17:50 | XMS REPORT ---
Author Author Jennifer Lazo Doctor Organization [facility] Address Unknown Phone Unavailable Care Team Providers Care Online Tutor Name Role Phone Migration, Doctor Unavailable Unavailable PROBLEMS Type Condition ICD9-CM Code CQP95-ZL Code Onset Dates Condition S tatus SNOMED Code Problem Diabetes type 2, uncontrolled E11.65 Active 134212030 Problem Type 2 diabetes mellitus wit h hyperglycemia, without long-term current use of insulin E11.65 Active 96158773 Problem Pure hypercholesterolemia E78.0 Acti ve 168079332 Problem Anhedonia R45.84 Active 27801661 Problem Anxiety F41.9 Active 05589846 Problem Morbid obesity, unspecified obesity type E66.01 Active 081071880 Problem Uncontrolled type 2 diabetes mellitus without complication, without long-term current use of insulin E11.65 Active 108366117 Problem Moderate single current episode of major depressive disord er F32.1 Active 40075070 Problem Current severe episode of ma 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 without prior episode F32.2 Active 85267234 Problem Difficulty sleeping G47.9 Active 442933050 Problem Chronic GERD K21.9 Active 3832742 09 Problem Mixed hyperlipidemia E78.2 Active 962553781 Problem Irritability R45.4 Active 4060608 7 Problem Other obesity due to excess calories E66.09 Active 176411679 Problem Body mass index (BMI) of 45.0-49.9 in adult Z68.42 Active 106286445 Problem Pure hypercholesterolemia, unspecified E78.00 Active 017579190 ALLERGIES No Information ENCOUNTERS Encounter Location Date Diagnosis [facility] [address] [facility] [place] [address] Jan, Caries K02.9 [facility] [address] [facility] [place] [address] Jan, Dental examination Z01.20 and Caries K02 .[address] [id number] [id number] Apr, [address] [place] [id number] Mar, Chronic GERD K21.9 and Diarrhea R19.7 [place] [id number] [place] [id number] Mar, BMI 45.0-49.9, adult Z68.42 and Viral syndrome B34.9 [place] [id number] [place] [address] [id number] Feb, URI, acute J06.9 and BMI 45.0-49.9, adult Z68.[address] [place] [address] [facility] [address] [id number] [place] [id number] Oct, Dental examination Z01.20 [facility] [address] [place] [address] [id number] [place] [address], [place] [id number] Oct, Dental examination Z01.[address], [place] [id number] August, BMI 45.0-49.9, adult Z68.42 ; Diabetes t ype 2, uncontrolled E11.65 and Mixed hyperlipidemia E78.2 [facility] [address] [place] [address] AVE [id number] [facility] [id number] August, Dental examination Z01.20 [facility] [address] [facility] [place] [address] Jul, Current severe episode of major depressi ve disorder without psychotic features without prior episode F32.[address] [place] [id number] Jun, Mixed hyperlipidemia E78.2 ; Diabetes type 2, uncontrolled E11.65 ; BMI 45.0-49.9, adult Z68.42 ; Stressful life event affecting family Z63.79 ; BCP ( control pills) initiation Z30.011 and Anxiety F41.9 [address] [place] [address] [id number] May, Diabetes type 2, uncontrolled E11.65 ; Mixed hyperlipidemia E78.2 ; Current severe episode of major depressive disorder without psychotic features without prior episode F32.2 ; Vaginal discharge N89.8 ; Vision changes H53.9 and BMI 45.0-49.9, adult Z68.[address] [id number] May, Type 2 diabetes mellitus with hyperglycemia, without long-term current use of insulin E11.65 and Mixed hyperlipidemia E78.[address] [id number] May, Type 2 diabetes mellitus with hyperglycemia, without long-term current use of insulin E11.65 [facility] [address] [id number] [place] [id number] May, Dental examination Z01.20 [facility] [address] [facility] [address] [id number] May, Dental examination Z01.[address] [id number] Apr, Dental examination Z01.[address] [id number] Jan, Mixed hyperlipidemia E78.2 and Pure hypercholesterolemia, unspecified E78.[address] [id number] Jan, Mid- back pain, acute M54.9 ; [...] adult Z68.42 and BMI 45.0-49.9, adult Z68.[address] [id number] Dec, Diabetes type 2, uncontrolled E11.65 ; Morbid obesity, unspecified obesity type E66.01 ; Mixed hyperlipidemia E78.2 ; Moderate single current episode of major depressive disorder F32.1 ; Irritability R45.4 ; Dysuria R30.0 and BCP ( control pills) initiation Z30.011 [facility] [address] [facility] [place] [id number] Nov, Dental examination Z01.20 [place] [id number] [place] [address] [id number] Nov, Right wrist pain M25.[address] [id number] Jul, BCP ( control pills) initiation Z30.[address] [id number] Jun, Left otitis media, unspecified chronicity, unspecified otitis media type H66.92 ; Morbid obesity, unspecified obesity type E66.01 ; Neck pain on left side M54.2 and Uncontrolled type 2 diabetes mellitus without complication, without long- term current use of insulin E11.[address] [id number] Apr, Anxiety F41.9 ; Anhedonia R45.84 ; Difficulty sleeping G47.9 ; Type 2 diabetes mellitus with hyperglycemia, without long-term current use of insulin E11.65 ; control counseling Z30.9 ; BCP ( control pills) initiation Z30.011 and Mixed hyperlipidemia E78.2 [place] [id number] Oct, Diabetes type 2, uncontrolled E11.65 and Pure hypercholesterolemia E78.0 [facility] [address] [id number] [place] [address] August, [address] [id number] Jun, Diabetes type 2, uncontrolled E11.65 and Pure hypercholesterolemia E78.[address] [id number] Jun, Diabetes type 2, uncontrolled E11.65 [facility] [address] [place] [address] [id number] [place] [address] Mar, [address] [id number] Mar, [place] [id number] Mar, Diabetes type 2, uncontrolled E11.65 [facility] [address] [facility] [id number] Mar, [facility] [address] [facility] [address] [id number] [place] [id number] August, Abdominal pain 789.00 and Frequency of u rination 788.41 [facility] [place] [facility] [id number] [place] [address] Jul, [facility] [address] [address] Jul, [facility] [place] [id number] [place] [id number] Feb, [facility] [address] [address] Feb, [facility] [place] [id number] [place] [address] [id number] Feb, [facility] [address] [address] Feb, [facility] [address] [address] Feb, [facility] [address] [address] Feb, [facility] [id number] [id number] Feb, [facility] [address] [address] Feb, [facility] [place] [id number] [place] [address] [id number] Jan, [facility] [address] [address] Jan, [facility] [address] [place] [id number] [place] [address] [id number] Sep, [facility] [address] [address] Sep, [facility] [address] [facility] [id number] August, [facility] [id number] [place] [address] August, [facility] [address] [facility] [place] [address] Jul, [facility] [address] [facility] [place] [id number] Jul, [facility] [address] [place] [id number] [place] [id number] Jul, [facility] [address] [place] [id number] [place] [id number] Jul, [facility] [id number] [place] [address] Jul, [facility] [id number] [place] [address] Jul, [facility] [address] [place] [id number] [id number] Jun, [facility] [id number] [place] [address] Jun, [facility] [address] [place] [id number] [id number] May, [facility] [address] [facility] [place] [address] May, [facility] [address] [place] [id number] Apr, [facility] [address] [id number] [place] [address] Apr, [facility] [address] [facility] [place] [address] Apr, [facility] [address] [place] [id number] Apr, [facility] [address] [facility] [place] [address] Apr, [facility] [address] [place] [id number] Jan, [facility] [address] [facility] [place] [address] Jan, [facility] [address] [facility] [id number] Jan, [facility] [address] [facility] [id number] Dec, [address] [place] [address] [id number] Nov, [facility] [address] [address] Nov, [facility] [address] [address] Nov, [place] [id number] [place] [id number] Nov, [facility] [address] [place] [address] [id number] [place] [address] Nov, [facility] [address] [address] Nov, [address] [id number] Nov, IMMUNIZATIONS No Known Immunizations SOCIAL HISTORY Never Assessed REASON FOR VISIT PLAN OF CARE VITAL SIGNS Height 64 in 2013-07-24 Weight 295.6 lbs 2013-07-24 Temperature 97.8 degrees Fahrenheit 2013-07-24 Heart Rate 80 bpm 2013-07-24 Respiratory Rate 24 2013-07-24 Blood pressure systolic 124 mmHg 2013-07-24 Blood pressure diastolic 80 mmHg 2013-07-24 MEDICATIONS Unknown Medications RESULTS No Results PROCEDURES Procedure Date Ordered Result Body Site URINE TEST July 24, 2013 INSTRUCTIONS MEDICATIONS ADMINISTERED No Known Medications [...]
--- OUTSIDE RECORDS SUMMARY | 2019-11-08 17:50 | XMS REPORT ---
Author Author [facility] Address [address] [place] [address] Care Team Providers Care Golf Course Keeper Name Role Phone CORA Echeverria Unavailable PROBLEMS Type Condition ICD9-CM Code QPO13-LX Code Onset Dates Condition S tatus SNOMED Code Problem Diabetes type 2, uncontrolled E11.65 Active 523866243 Problem Type 2 diabetes mellitus wit h hyperglycemia, without long-term current use of insulin E11.65 Active 50404107 Problem Pure hypercholesterolemia E78.0 Acti ve 149365834 Problem Anhedonia R45.84 Active 36913835 Problem Anxiety F41.9 Active 99221655 Problem Morbid obesity, unspecified obesity type E66.01 Active 713966312 Problem Uncontrolled type 2 diabetes mellitus without complication, without long-term current use of insulin E11.65 Active 557713540 Problem Moderate single current episode of major depressive disord er F32.1 Active 68942873 Problem Current severe episode of ma 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 without prior episode F32.2 Active 24404672 Problem Difficulty sleeping G47.9 Active 859349883 Problem Chronic GERD K21.9 Active 6516943 09 Problem Mixed hyperlipidemia E78.2 Active 617151072 Problem Irritability R45.4 Active 2223009 7 Problem Other obesity due to excess calories E66.09 Active 383800033 Problem Body mass index (BMI) of 45.0-49.9 in adult Z68.42 Active 884520417 Problem Pure hypercholesterolemia, unspecified E78.00 Active 113665902 ALLERGIES No Information ENCOUNTERS Encounter Location Date Diagnosis [facility] [address] [id number] [place] [id number] Apr, [address] [id number] [facility] [id number] Mar, Chronic GERD K21.9 and Diarrhea R19.[address] [id number] [place] [id number] Mar, BMI 45.0-49.9, adult Z68.42 and Viral sy ndrome B34.[address] [id number] [place] [id number] Feb, URI, acute J06.9 and BMI 45.0-49.9, adul t Z68.42 [facility] [address] [facility] [address] [id number] [place] [id number] Oct, Dental examination Z01.[id number] [place] [address] [id number] Oct, Dental examination Z01.20 [address] [place] [address] [id number] August, BMI 45.0-49.9, adult Z68.42 ; Diabetes t ype 2, uncontrolled E11.65 and Mixed hyperlipidemia E78.[address] [id number] [place] [id number] August, Dental examination Z01.20 [facility] [address] [facility] [id number] [place] [address] Jul, Current severe episode of ma 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 without prior episode F32.[address] [id number] [place] [id number] Jun, Mixed hyperlipidemia E78.2 ; Diabetes ty pe 2, uncontrolled E11.65 ; BMI 45.0- 49.9, adult Z68.42 ; Stressful life event affecting family Z63.79 ; BCP ( control pills) initiation Z30.011 and Anxiety F41.[address] [id number] [place] [id number] May, Diabetes type 2, uncontrolled E11.65 ; M ixed hyperlipidemia E78.2 ; Current severe episode of major depressive disorder without psychotic features without prior episode F32.2 ; Vaginal discharge N89.8 ; Vision changes H53.9 and BMI 45.0-49.9, adult Z68.42 [facility] [place] [address] [id number] [place] [id number] May, Type 2 diabetes mellitus with hyperglyce mere, without long-term current use of insulin E11.65 and Mixed hyperlipidemia E78.2 [facility] [place] [address] [id number] [place] [id number] May, Type 2 diabetes mellitus with hyperglyce mere, without long-term current use of insulin E11.[address] [facility] [address] [address] [id number] [place] [id number] May, Dental examination Z01.20 [facility] [address] [id number] [place] [id number] May, Dental examination Z01.20 [facility] [place] [address] [facility] [address] [id number] [place] [id number] Apr, Dental examination Z01.20 [facility] [place] [address] [id number] [place] [id number] Jan, Mixed hyperlipidemia E78.2 and Pure hype rcholesterolemia, unspecified E78.00 [facility] [place] [address] [id number] [place] [id number] Jan, Mid-back pain, acute M54.9 ; Anxiety [...] adult Z68.42 and BMI 45.0-49.9, adult Z68.42 [facility] [place] [address] [id number] [place] [id number] Dec, Diabetes type 2, uncontrolled E11.65 ; M orbid obesity, unspecified obesity type E66.01 ; Mixed hyperlipidemia E78.2 ; Moderate single current episode of major depressive disorder F32.1 ; Irritability R45.4 ; Dysuria R30.0 and BCP ( control pills) initiation Z30.011 [facility] [address] [place] [id number] [address] [place] [address] [id number] Nov, Dental examination Z01.20 [facility] [place] [id number] [place] [id number] Nov, Right wrist pain M25.531 [facility] [place] [address] [place] [address], [place] [id number] Jul, BCP ( control pills) initiation Z30 .011 [facility] [place] [id number] [place] [id number] Jun, Left otitis media, unspecified chronicit y, unspecified otitis media type H66.92 ; Morbid obesity, unspecified obesity type E66.01 ; Neck pain on left side M54.2 and Uncontrolled type 2 diabetes mellitus without complication, without long- term current use of insulin E11.65 [facility] [address] [place] [address], [place] [id number] Apr, Anxiety F41.9 ; Anhedonia R45.84 ; Diffi culty sleeping G47.9 ; Type 2 diabetes mellitus with hyperglycemia, without long-term current use of insulin E11.65 ; control counseling Z30.9 ; BCP ( control pills) initiation Z30.011 and Mixed hyperlipidemia E78.2 [facility] [place] [address] [place] [address], [place] [id number] Oct, Diabetes type 2, uncontrolled E11.65 and Pure hypercholesterolemia E78.0 [facility] [address] [place] [id number] [address] [place] [address] August, [facility] [place] [id number] [place] [id number] Jun, Diabetes type 2, uncontrolled E11.65 and Pure hypercholesterolemia E78.0 [facility] [place] [id number] [place] [id number] Jun, Diabetes type 2, uncontrolled E11.65 [facility] [address] [address] Mar, [facility] [address] [id number] [place] [id number] Mar, [facility] [place] [address] [id number] [place] [id number] Mar, Diabetes type 2, uncontrolled E11.65 [facility] [address] [id number] [place], [place] [id number] Mar, [facility] [address] [id number] [place] [id number] August, Abdominal pain 789.00 and Frequency of u rination 788.41 [facility] [address] [facility] [id number] [address] [place] [address] Jul, [facility] [address] [facility] [id number] [address] [place] [address] Jul, [facility] [place] [address] [facility] [id number] [place] [id number] Feb, [facility] [address] [facility] [id number] [address] [place] [address] Feb, [facility] [place] [address] [facility] [id number] [place] [id number] Feb, [facility] [address] [facility] [id number] [address] [place] [address] Feb, [facility] [address] [facility] [id number] [address] [place] [address] Feb, [facility] [address] [facility] [id number] [address] [place] [address] Feb, [facility] [address] [id number] [place] [id number] Feb, [facility] [address] [facility] [id number] [address] [place] [address] Feb, [facility] [address] [id number] [place] [id number] Jan, [facility] [address] [facility] [id number] [address] [place] [address] Jan, [facility] [address] [id number] [place] [id number] Sep, [facility] [address] [id number] [address] [place] [address], [place] [address] Sep, [facility] [address] [id number] [place] [id number] August, [facility] [address] [id number] [address] [place] [address], [place] [address] August, [facility] [address] [id number] [address] [place] [address], [place] [address] Jul, [facility] [address] [id number] [place] [id number] Jul, [facility] [address] [id number] [place] [id number] Jul, [facility] [address] [id number] [place] [id number] Jul, [facility] [address] [id number] [address] [place] [address], [place] [address] Jul, [facility] [address] [facility] [id number] [address] [place] [address], [place] [address] Jul, [facility] [address] [id number] [place], [place] [id number] Jun, [facility] [address] [id number] [address] [place] [address], [place] [address] Jun, [facility] [address] [id number] [place] [id number] May, [facility] [address] [id number] [address] [place] [address], [place] [address] May, [facility] [address] [id number] [place] [id number] Apr, [facility] [address] [id number] [address] [place] [address], [place] [address] Apr, [facility] [address] [id number] [address] [place] [address] Apr, [facility] [address] [id number] [place] [id number] Apr, [facility] [address] [facility] [id number] [address] [place] [address] Apr, [facility] [address] [id number] [place], [place] [id number] Jan, [facility] [address] [facility] [id number] [address] [place] [address] Jan, [facility] [address] [id number] [place] [id number] Jan, [facility] [address] [id number] [place] [id number] Dec, [facility] [address] [facility] [id number] [place] [id number] Nov, [facility] [address] [facility] [id number] [address] [place] [address] Nov, [facility] [address] [facility] [id number] [address] [place] [address] Nov, [facility] [address] [facility] [id number] [place] [id number] Nov, [facility] [address] [facility] [id number] [address] [place] [address] Nov, [facility] [address] [facility] [id number] [address] [place] [address] Nov, [facility] [address] [facility] [id number] [place] [id number] Nov, IMMUNIZATIONS No Known Immunizations SOCIAL HISTORY [...]
--- OUTSIDE RECORDS SUMMARY | 2019-11-08 17:50 | XMS REPORT ---
Author Author Jennifer Echeverria [facility] Address [address] [place] [address] Care Team Providers Care Elevator Constructor Hydraulic Name Role Phone CORA Echeverria Unavailable PROBLEMS Type Condition ICD9-CM Code EZB67-SA Code Onset Dates Condition S tatus SNOMED Code Problem Diabetes type 2, uncontrolled E11.65 Active 853720379 Problem Type 2 diabetes mellitus wit h hyperglycemia, without long-term current use of insulin E11.65 Active 37161556 Problem Pure hypercholesterolemia E78.0 Acti ve 508599614 Problem Anhedonia R45.84 Active 52656878 Problem Anxiety F41.9 Active 23382789 Problem Morbid obesity, unspecified obesity type E66.01 Active 807230835 Problem Uncontrolled type 2 diabetes mellitus without complication, without long-term current use of insulin E11.65 Active 207487726 Problem Moderate single current episode of major depressive disord er F32.1 Active 15601849 Problem Current severe episode of ma 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 without prior episode F32.2 Active 13987027 Problem Difficulty sleeping G47.9 Active 710916033 Problem Chronic GERD K21.9 Active 5700150 09 Problem Mixed hyperlipidemia E78.2 Active 912812600 Problem Irritability R45.4 Active 6121031 7 Problem Other obesity due to excess calories E66.09 Active 637553098 Problem Body mass index (BMI) of 45.0-49.9 in adult Z68.42 Active 834530917 Problem Pure hypercholesterolemia, unspecified E78.00 Active 555394996 ALLERGIES No Information ENCOUNTERS Encounter Location Date Diagnosis [facility] [address] [id number] [place] [id number] Apr, [address] [id number] [facility] [id number] Mar, Chronic GERD K21.9 and Diarrhea R19.[address] [id number] [place] [id number] Mar, BMI 45.0-49.9, adult Z68.42 and Viral sy ndrome B34.[address] [id number] [place] [id number] Feb, URI, acute J06.9 and BMI 45.0-49.9, adul t Z68.42 [facility] [address] [id number] [place] [id number] Oct, Dental examination Z01.[id number] [place] [id number] Oct, Dental examination Z01.[address] [place] [id number] August, BMI 45.0-49.9, adult Z68.42 ; Diabetes t ype 2, uncontrolled E11.65 and Mixed hyperlipidemia E78.[address] [id number] [place] [id number] August, Dental examination Z01.20 [facility] [address] [facility] [id number] [place] [address] Jul, Current severe episode of ma 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 without prior episode F32.[address] [id number] [place] [id number] Jun, Mixed hyperlipidemia E78.2 ; Diabetes ty pe 2, uncontrolled E11.65 ; BMI 45.0- 49.9, adult Z68.42 ; Stressful life event affecting family Z63.79 ; BCP ( control pills) initiation Z30.011 and Anxiety F41.[address] [id number] [place] [id number] May, Diabetes type 2, uncontrolled E11.65 ; M ixed hyperlipidemia E78.2 ; Current severe episode of major depressive disorder without psychotic features without prior episode F32.2 ; Vaginal discharge N89.8 ; Vision changes H53.9 and BMI 45.0-49.9, adult Z68.42 [facility] [place] [address] [id number] [place] [id number] May, Type 2 diabetes mellitus with hyperglyce mere, without long-term current use of insulin E11.65 and Mixed hyperlipidemia E78.2 [facility] [place] [address] [id number] [place] [id number] May, Type 2 diabetes mellitus with hyperglyce mere, without long-term current use of insulin E11.[address] [facility] [address] [id number] [place] [id number] May, Dental examination Z01.20 [facility] [address] [id number] [place] [id number] May, Dental examination Z01.20 [facility] [place] [address] [id number] [place] [id number] Apr, Dental examination Z01.20 [facility] [place] [address] [id number] [place] [id number] Jan, Mixed hyperlipidemia E78.2 and Pure hype rcholesterolemia, unspecified E78.00 [facility] [place] [address] [id number] [place] [id number] Jan, Mid-back pain, acute M54.9 ; Anxiety [...] Z68.42 and BMI 45.0-49.9, adult Z68.42 [facility] [place] [address] [id number] [place] [id number] Dec, Diabetes type 2, uncontrolled E11.65 ; M orbid obesity, unspecified obesity type E66.01 ; Mixed hyperlipidemia E78.2 ; Moderate single current episode of major depressive disorder F32.1 ; Irritability R45.4 ; Dysuria R30.0 and BCP ( control pills) initiation Z30.011 [facility] [address] [id number] [address] [place] [id number] Nov, Dental examination Z01.20 [facility] [place] [id number] [place] [id number] Nov, Right wrist pain M25.531 [facility] [place] [address] [place] [address], [place] [id number] Jul, BCP ( control pills) initiation Z30 .011 [facility] [place] [id number] [place] [id number] Jun, Left otitis media, unspecified chronicit y, unspecified otitis media type H66.92 ; Morbid obesity, unspecified obesity type E66.01 ; Neck pain on left side M54.2 and Uncontrolled type 2 diabetes mellitus without complication, without long- term current use of insulin E11.65 [facility] [address] [place] [address], [place] [id number] Apr, Anxiety F41.9 ; Anhedonia R45.84 ; Diffi culty sleeping G47.9 ; Type 2 diabetes mellitus with hyperglycemia, without long-term current use of insulin E11.65 ; control counseling Z30.9 ; BCP ( control pills) initiation Z30.011 and Mixed hyperlipidemia E78.2 [facility] [place] [address] [place] [address], [place] [id number] Oct, Diabetes type 2, uncontrolled E11.65 and Pure hypercholesterolemia E78.0 [facility] [address] [id number] [address] [place] [address] August, [facility] [place] [id number] [place] [id number] Jun, Diabetes type 2, uncontrolled E11.65 and Pure hypercholesterolemia E78.0 [facility] [place] [id number] [place] [id number] Jun, Diabetes type 2, uncontrolled E11.65 [facility] [address] [address] Mar, [facility] [address] [id number] [place] [id number] Mar, [facility] [place] [address] [id number] [place] [id number] Mar, Diabetes type 2, uncontrolled E11.65 [facility] [place] [facility] [address] [id number] [place] [id number] Mar, [facility] [address] [id number] [place] [id number] August, Abdominal pain 789.00 and Frequency of u rination 788.41 [facility] [address] [facility] [id number] [address] [place] [address] Jul, [facility] [address] [facility] [id number] [address] [place] [address] Jul, [facility] [place] [address] [facility] [id number] [place] [id number] Feb, [facility] [address] [facility] [id number] [address] [place] [address] Feb, [facility] [place] [address] [facility] [id number] [place] [id number] Feb, [facility] [address] [facility] [id number] [address] [place] [address] Feb, [facility] [address] [facility] [id number] [address] [place] [address] Feb, [facility] [address] [facility] [id number] [address] [place] [address] Feb, [facility] M [address] [id number] [place] [id number] Feb, [facility] [address] [facility] [id number] [address] [place] [address] Feb, [facility] [address] [id number] [place] [id number] Jan, [facility] [address] [facility] [id number] [address] [place] [address] Jan, [facility] [address] [id number] [place] [id number] Sep, [facility] [address] [id number] [address] [place] [address], [place] [address] Sep, [facility] [address] [id number] [place] [id number] August, [facility] [address] [id number] [address] [place] [address], [place] [address] August, [facility] [address] [id number] [address] [place] [address], [place] [address] Jul, [facility] [address] [id number] [place] [id number] Jul, [facility] [address] [id number] [place] [id number] Jul, [facility] [address] [id number] [place] [id number] Jul, [facility] [address] [id number] [address] [place] [address], [place] [address] Jul, [facility] [address] [facility] [id number] [address] [place] [address], [place] [address] Jul, [facility] [address] [id number] [place], [place] [id number] Jun, [facility] [address] [id number] [address] [place] [address], [place] [address] Jun, [facility] M [address] [id number] [place] [id number] May, [facility] [address] [id number] [address] [place] [address], [place] [address] May, [facility] [place] [facility] [address] [id number] [place] [id number] Apr, [facility] [address] [id number] [address] [place] [address], [place] [address] Apr, [facility] [address] [id number] [address] [place] [address] Apr, [facility] [address] [id number] [place] [id number] Apr, [facility] [address] [facility] [id number] [address] [place] [address] Apr, [facility] [address] [id number] [place], [place] [id number] Jan, [facility] [address] [id number] [address] [place] [address] Jan, [facility] [place] [address] [id number] [place] [id number] Jan, [facility] [place] [address] [id number] [place] [id number] Dec, [facility] [place] [address] [id number] [place] [id number] Nov, [facility] [address] [facility] [id number] [address] [place] [address] Nov, [facility] [address] [facility] [id number] [address] [place] [address] Nov, [facility] [address] [id number] [place] [id number] Nov, [facility] [address] [facility] [id number] [address] [place] [address] Nov, [facility] [address] [facility] [id number] [address] [place] [address] Nov, [facility] [address] [id number] [place] [id number] Nov, IMMUNIZATIONS No Known Immunizations SOCIAL HISTORY Never Assessed REASON FOR VISIT PLAN OF CARE VITAL SIGNS Height 64 in 2014-03-07 Weight 314.2 lbs 2014-03-07 Temperature 97.8 degrees Fahrenheit 2014-03-07 Heart Rate 78 bpm 2014-03-07 Respiratory Rate 20 2014-03-07 Blood pressure systolic 118 mmHg 2014-03-07 Blood pressure diastolic 72 mmHg 2014-03-07 MEDICATIONS Unknown Medications RESULTS No Results PROCEDURES [...]
--- OUTSIDE RECORDS SUMMARY | 2019-11-08 17:50 | XMS REPORT ---
Author Author Jennifer Echeverria [facility] Address [address] [place] [address] Care Team Providers Care Net Applications Developer Name Role Phone CORA Echeverria Unavailable PROBLEMS Type Condition ICD9-CM Code VGL26-XV Code Onset Dates Condition S tatus SNOMED Code Problem Diabetes type 2, uncontrolled E11.65 Active 701136521 Problem Type 2 diabetes mellitus wit h hyperglycemia, without long-term current use of insulin E11.65 Active 51146598 Problem Pure hypercholesterolemia E78.0 Acti ve 939298475 Problem Anhedonia R45.84 Active 51307782 Problem Anxiety F41.9 Active 17887764 Problem Morbid obesity, unspecified obesity type E66.01 Active 285666140 Problem Uncontrolled type 2 diabetes mellitus without complication, without long-term current use of insulin E11.65 Active 957139549 Problem Moderate single current episode of major depressive disord er F32.1 Active 62821160 Problem Current severe episode of ma 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 without prior episode F32.2 Active 15565718 Problem Difficulty sleeping G47.9 Active 776715728 Problem Chronic GERD K21.9 Active 2289337 09 Problem Mixed hyperlipidemia E78.2 Active 435839451 Problem Irritability R45.4 Active 6029241 7 Problem Other obesity due to excess calories E66.09 Active 288810654 Problem Body mass index (BMI) of 45.0-49.9 in adult Z68.42 Active 365044182 Problem Pure hypercholesterolemia, unspecified E78.00 Active 026107081 ALLERGIES No Information ENCOUNTERS Encounter Location Date Diagnosis [place] [address] [address] [facility] [place] [address] Jan, Caries K02.9 [address] [address] [facility] [place] [address] Jan, Dental examination Z01.20 and Caries K02 .9 [facility] [address] [facility] [address] [id number] [place] [id number] Apr, [place] [id number] [place] [address] [id number] Mar, Chronic GERD K21.9 and Diarrhea R19.7 [id number] [id number] Mar, BMI 45.0-49.9, adult Z68.42 and Viral syndrome B34.[address] [id number] Feb, URI, acute J06.9 and BMI 45.0-49.9, adult Z68.42 [address] [facility] [address] [id number] [place] [id number] Oct, Dental examination Z01.20 [facility] [address] [place] [address] [address] [place] [id number] Oct, Dental examination Z01.[address] [place] [id number] August, BMI 45.0-49.9, adult Z68.42 ; Diabetes t ype 2, uncontrolled E11.65 and Mixed hyperlipidemia E78.2 [facility] [address] [place] [address] AVE [id number] [place] [id number] August, Dental examination Z01.20 [facility] [address] [facility] [place] [address] Jul, Current severe episode of major depressi ve disorder without psychotic features without prior episode F32.[address]07[address] [id number] Jun, Mixed hyperlipidemia E78.2 ; Diabetes type 2, uncontrolled E11.65 ; BMI 45.0-49.9, adult Z68.42 ; Stressful life event affecting family Z63.79 ; BCP ( control pills) initiation Z30.011 and Anxiety F41.[address] [place] [address] [id number] May, Diabetes type 2, uncontrolled E11.65 ; Mixed hyperlipidemia E78.2 ; Current severe episode of major depressive disorder without psychotic features without prior episode F32.2 ; Vaginal discharge N89.8 ; Vision changes H53.9 and BMI 45.0-49.9, adult Z68.[address] [id number] May, Type 2 diabetes mellitus with hyperglycemia, without long-term current use of insulin E11.65 and Mixed hyperlipidemia E78.[address] [id number] May, Type 2 diabetes mellitus with hyperglycemia, without long-term current use of insulin E11.[address] [id number] May, Dental examination Z01.[address] [id number] May, Dental examination Z01.[address] [id number] Apr, Dental examination Z01.[address] [id number] Jan, Mixed hyperlipidemia E78.2 and Pure hypercholesterolemia, unspecified E78.[address] [id number] Jan, Mid- back pain, acute M54.9 ; [...] adult Z68.42 and BMI 45.0-49.9, adult Z68.[address] [id number] Dec, Diabetes type 2, uncontrolled E11.65 ; Morbid obesity, unspecified obesity type E66.01 ; Mixed hyperlipidemia E78.2 ; Moderate single current episode of major depressive disorder F32.1 ; Irritability R45.4 ; Dysuria R30.0 and BCP ( control pills) initiation Z30.011 [facility] [address] [facility]757B [place] [id number] Nov, Dental examination Z01.[address] [id number] Nov, Right wrist pain M25.[address] [id number] Jul, BCP ( control pills) initiation Z30.[address] [id number] Jun, Left otitis media, unspecified chronicity, unspecified otitis media type H66.92 ; Morbid obesity, unspecified obesity type E66.01 ; Neck pain on left side M54.2 and Uncontrolled type 2 diabetes mellitus without complication, without long- term current use of insulin E11.[address] [id number] Apr, Anxiety F41.9 ; Anhedonia R45.84 ; Difficulty sleeping G47.9 ; Type 2 diabetes mellitus with hyperglycemia, without long-term current use of insulin E11.65 ; control counseling Z30.9 ; BCP ( control pills) initiation Z30.011 and Mixed hyperlipidemia E78.[address] [id number] Oct, Diabetes type 2, uncontrolled E11.65 and Pure hypercholesterolemia E78.0 [facility] [id number] [place] [address] August, [address] [id number] Jun, Diabetes type 2, uncontrolled E11.65 and Pure hypercholesterolemia E78.[address] [id number] Jun, Diabetes type 2, uncontrolled E11.65 [facility] [address] [address] Mar, [address] [place] [id number] Mar, [facility] [place] [id number] [place] [address] [id number] Mar, Diabetes type 2, uncontrolled E11.65 [facility] [id number] [id number] Mar, [facility] [place] [address] [facility] [id number] [id number] August, Abdominal pain 789.00 and Frequency of u rination 788.41 [facility] [address] [address] Jul, [facility] [address] [address] Jul, [facility] [place] [id number] Feb, [facility] [address] [address] Feb, [facility] [place] [id number] [place] [address] [id number] Feb, [facility] [address] [address] Feb, [facility] [address] [address] Feb, [facility] [address] [address] Feb, [facility] [place] [id number] [place] [address] [id number] Feb, [facility] [address] [address] Feb, [facility] [address] [id number] Jan, [facility] [address] [address] Jan, [facility] [address] [id number] Sep, [facility] [address] [facility] [place] [address] Sep, [facility] [address] [id number] [id number] August, [facility] [address] [id number] [place] [address] August, [facility] [address] [id number] [place] [address] Jul, [facility] [address] [id number] [id number] Jul, [facility] [address] [id number] [id number] Jul, [facility] [address] [id number] [id number] Jul, [facility] [address] [id number] [place] [address] Jul, [facility] [address] [id number] [place] [address] Jul, [facility] [address] [id number] [id number] Jun, [facility] [address] [id number] [place] [address] Jun, [facility] M 120 [facility]07757[place] [id number] May, [facility] [address] [id number] [place] [address] May, [facility] [address] [id number] [id number] Apr, [facility] [address] [id number] [place] [address] Apr, [facility] [address] [facility] [place] [address] Apr, [facility] M 120 [facility]07757[place] [id number] Apr, [facility] [address] [facility] [place] [address] Apr, [facility] 120 [id number] [place] [id number] Jan, [facility] [id number] [place] [address] Jan, [facility] 120 [facility]07757[place] [id number] Jan, [facility] [id number] [place] [address] [id number] Dec, [facility] [id number] [place] [address] [id number] Nov, [facility] [address] [address] Nov, [facility] [address] [address] Nov, [place] [id number] [place] [address] [id number] Nov, [facility] [id number] [place] [address] Nov, [facility] [id number] [place] [address] Nov, [place] [id number] [place] [address] [id number] Nov, IMMUNIZATIONS No Known Immunizations SOCIAL HISTORY Never Assessed REASON FOR VISIT PLAN OF CARE VITAL SIGNS Height 64 in 2013-09-05 Weight 298 lbs 2013-09-05 Temperature 98.4 degrees Fahrenheit 2013-09-05 Heart Rate 80 bpm 2013-09-05 Respiratory Rate 18 2013-09-05 Blood pressure systolic 122 mmHg 2013-09-05 Blood pressure diastolic 68 mmHg 2013-09-05 MEDICATIONS Unknown Medications RESULTS No Results PROCEDURES Procedure Date Ordered Result Body Site GLYCATED HEMOGLOBIN TEST September 05, 2013 LIPID PANEL September 05, 2013 VENIPUNCT, ROUTINE* September 05, 2013 INSTRUCTIONS MEDICATIONS ADMINISTERED No Known Medications [...] work, hyp ertension, was seen at [facility] 04/09/16
--- OUTSIDE RECORDS SUMMARY | 2019-11-08 17:50 | XMS REPORT ---
Author Author Jennifer Echeverria [facility] Address [address] [place] [address] Care Team Providers Care Showroom Manager Name Role Phone CORA Echeverria Unavailable PROBLEMS Type Condition ICD9-CM Code [id number] Code Onset Dates Condition S tatus SNOMED Code Problem Diabetes type 2, uncontrolled E11.65 Active 298924574 Problem Anxiety F41.9 Active 19965430 Problem Pure hypercholesterolemia E78.0 Acti ve 263089298 Problem Mixed hyperlipidemia E78.2 Active 083608140 Problem Anhedonia R45.84 Active 34157619 Problem Uncontrolled type 2 diabetes mellitus without complication, without long-term current use of insulin E11.65 Active 400069816 Problem Morbid obesity, unspecified obesity type E66.01 Active 109482940 Problem Irritability R45.4 Active 7949143 7 Problem Current severe episode of ma 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 without prior episode F32.2 Active 69969794 Problem Type 2 diabetes mellitus wit h hyperglycemia, without long-term current use of insulin E11.65 Active 83945011 Problem Chronic GERD K21.9 Active 1834573 09 Problem Difficulty sleeping G47.9 Active 586168322 Problem Moderate single current episode of major depressive disord er F32.1 Active 41591837 Problem Other obesity due to excess calories E66.09 Active 499844998 Problem Body mass index (BMI) of 45.0-49.9 in adult Z68.42 Active 064358750 Problem Pure hypercholesterolemia, unspecified E78.00 Active 588159602 ALLERGIES No Information ENCOUNTERS Encounter Location Date Diagnosis [place] [address] [facility] [place] [address] Jan, Caries K02.9 [place] [address] [facility] [place] [address] Jan, Dental examination Z01.20 [address]02 [address] [facility] [address] [id number] [place] [id number] Apr, [place] [id number] [place] [id number] Mar, Chronic GERD K21.9 and Diarrhea R19.7 [id number] [id number] Mar, BMI 45.0-49.9, adult Z68.42 and Viral syndrome B34.[address] [id number] Feb, URI, acute J06.9 and BMI 45.0-49.9, adult Z68.42 [place] [address] [id number] [place] [id number] Oct, Dental examination Z01.20 [facility] [address] [place] [address] [place] [id number] Oct, Dental examination Z01.[address] [place] [id number] August, BMI 45.0-49.9, adult Z68.42 ; Diabetes t ype 2, uncontrolled E11.65 and Mixed hyperlipidemia E78.2 [facility] [address] [place] [address] AVE [id number] [place] [id number] August, Dental examination Z01.20 [facility] [address] [facility] [place] [address] Jul, Current severe episode of major depressi ve disorder without psychotic features without prior episode F32.2 [address] [address] Jun, Mixed hyperlipidemia E78.2 ; Diabetes type 2, uncontrolled E11.65 ; BMI 45.0-49.9, adult Z68.42 ; Stressful life event affecting family Z63.79 ; BCP ( control pills) initiation Z30.011 and Anxiety F41.[address] [place] [id number] May, Diabetes type 2, uncontrolled E11.65 ; Mixed hyperlipidemia E78.2 ; Current severe episode of major depressive disorder without psychotic features without prior episode F32.2 ; Vaginal discharge N89.8 ; Vision changes H53.9 and BMI 45.0-49.9, adult Z68.[address] [id number] May, Type 2 diabetes mellitus with hyperglycemia, without long-term current use of insulin E11.65 and Mixed hyperlipidemia E78.[address] [id number] May, Type 2 diabetes mellitus with hyperglycemia, without long-term current use of insulin E11.[address] [id number] May, Dental examination Z01.[address] [id number] May, Dental examination Z01.[address] [id number] Apr, Dental examination Z01.[address] [id number] Jan, Mixed hyperlipidemia E78.2 and Pure hypercholesterolemia, unspecified E78.[address] [id number] Jan, Mid- back pain, acute M54.9 ; [...] adult Z68.42 and BMI 45.0-49.9, adult Z68.[address] [id number] Dec, Diabetes type 2, uncontrolled E11.65 ; Morbid obesity, unspecified obesity type E66.01 ; Mixed hyperlipidemia E78.2 ; Moderate single current episode of major depressive disorder F32.1 ; Irritability R45.4 ; Dysuria R30.0 and BCP ( control pills) initiation Z30.011 [facility] [address] [facility] [place] [id number] Nov, Dental examination Z01.[address] [id number] Nov, Right wrist pain M25.[address] [id number] Jul, BCP ( control pills) initiation Z30.[address] [id number] Jun, Left otitis media, unspecified chronicity, unspecified otitis media type H66.92 ; Morbid obesity, unspecified obesity type E66.01 ; Neck pain on left side M54.2 and Uncontrolled type 2 diabetes mellitus without complication, without long- term current use of insulin E11.[address] [id number] Apr, Anxiety F41.9 ; Anhedonia R45.84 ; Difficulty sleeping G47.9 ; Type 2 diabetes mellitus with hyperglycemia, without long-term current use of insulin E11.65 ; control counseling Z30.9 ; BCP ( control pills) initiation Z30.011 and Mixed hyperlipidemia E78.[address] [id number] Oct, Diabetes type 2, uncontrolled E11.65 and Pure hypercholesterolemia E78.0 [facility] [address] [place] [address] [place] [address] August, [address] [id number] Jun, Diabetes type 2, uncontrolled E11.65 and Pure hypercholesterolemia E78.[address] [id number] Jun, Diabetes type 2, uncontrolled E11.65 [facility] [address] [address] Mar, [address] [place] [id number] Mar, [facility] [place] [facility] [id number] [place] [address] [id number] Mar, Diabetes type 2, uncontrolled E11.65 [facility] [place] [id number] Mar, [facility] [place] [address] [facility] [id number] [id number] August, Abdominal pain 789.00 and Frequency of u rination 788.41 [facility] [address] [address] Jul, [facility] [address] [address] Jul, [facility] [place] [id number] Feb, [facility] [address] [address] Feb, [facility] [place] [id number] [place] [address] [id number] Feb, [facility] [address] [address] Feb, [facility] [address] [address] Feb, [facility] [address] [address] Feb, [facility] [place] [id number] [place] [address] [id number] Feb, [facility] [address] [address] Feb, [facility] [address] [id number] Jan, [facility] [address] [address] Jan, [facility] [address] [id number] Sep, [facility] [address] [facility] [place] [address] Sep, [facility] [address] [place] [facility] [place] [id number] August, [facility] [address] [place] [id number] [place] [address] August, [facility] [address] [id number] [place] [address] Jul, [facility] [address] [place] [facility] [id number] Jul, [facility] [address] [place] [id number] [id number] Jul, [facility] [address] [place] [facility] [id number] Jul, [facility] [id number] [place] [address] Jul, [facility] [id number] [place] [address] Jul, [facility] [address] [place] [facility] [id number] Jun, [facility] [id number] [place] [address] Jun, [facility] [address] [facility] [id number] May, [facility] [id number] [place] [address] May, [facility] [address] [place] [address] Apr, [facility] [id number] [place] [address] Apr, [facility] [address] [facility] [place] [address] Apr, [facility] [address] [facility] [id number] Apr, [facility] [address] [facility] [place] [address] Apr, [facility] [address] [facility] [place] [id number] Jan, [facility] [address] [place] [id number] [place] [address] Jan, [address] [id number] Jan, [place] [id number] Dec, [place] [id number] [place] [address] [id number] Nov, [facility] [address] [address] Nov, [facility] [address] [address] Nov, [place] [address] Nov, [facility] [address] [place] [address] [place] [address] Nov, [facility] [address] [place] [id number] [place] [address] Nov, [place] [id number] [place] [address] [id number] Nov, IMMUNIZATIONS No Known Immunizations SOCIAL HISTORY [...] at work, hyp ertension, was seen at [facility] 04/09/16
--- OUTSIDE RECORDS SUMMARY | 2019-11-08 17:50 | XMS REPORT ---
Author Author Jennifer Echeverria [facility] Address [address] [place] [address] Care Team Providers Care Orthotic Fitter Name Role Phone CORA Echeverria Unavailable PROBLEMS Type Condition ICD9-CM Code [id number] Code Onset Dates Condition S tatus SNOMED Code Problem Diabetes type 2, uncontrolled E11.65 Active 621273140 Problem Type 2 diabetes mellitus wit h hyperglycemia, without long-term current use of insulin E11.65 Active 44024115 Problem Pure hypercholesterolemia E78.0 Acti ve 530221749 Problem Anhedonia R45.84 Active 74818756 Problem Anxiety F41.9 Active 05980483 Problem Morbid obesity, unspecified obesity type E66.01 Active 702171289 Problem Uncontrolled type 2 diabetes mellitus without complication, without long-term current use of insulin E11.65 Active 035387432 Problem Moderate single current episode of major depressive disord er F32.1 Active 30264486 Problem Current severe episode of ma 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 without prior episode F32.2 Active 71880070 Problem Difficulty sleeping G47.9 Active 373486333 Problem Chronic GERD K21.9 Active 8390905 09 Problem Mixed hyperlipidemia E78.2 Active 765325596 Problem Irritability R45.4 Active 8463359 7 Problem Other obesity due to excess calories E66.09 Active 624920407 Problem Body mass index (BMI) of 45.0-49.9 in adult Z68.42 Active 925921749 Problem Pure hypercholesterolemia, unspecified E78.00 Active 240248551 ALLERGIES No Information ENCOUNTERS Encounter Location Date Diagnosis [facility] [address] [id number] [place] [id number] Apr, [address] [id number] [facility] [id number] Mar, Chronic GERD K21.9 and Diarrhea R19.[address] [id number] [place] [id number] Mar, BMI 45.0-49.9, adult Z68.42 and Viral sy ndrome B34.[address] [id number] [place] [id number] Feb, URI, acute J06.9 and BMI 45.0-49.9, adul t Z68.42 [facility] [address] [id number] [id number] Oct, Dental examination Z01.[id number] [place] [address] [id number] Oct, Dental examination Z01.20 [address] [place] [address] [id number] August, BMI 45.0-49.9, adult Z68.42 ; Diabetes t ype 2, uncontrolled E11.65 and Mixed hyperlipidemia E78.[address] [id number] [id number] August, Dental examination Z01.20 [facility] [address] [facility] [id number] [place] [address] Jul, Current severe episode of ma 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 without prior episode F32.[address] [id number] [place] [id number] Jun, Mixed hyperlipidemia E78.2 ; Diabetes ty pe 2, uncontrolled E11.65 ; BMI 45.0- 49.9, adult Z68.42 ; Stressful life event affecting family Z63.79 ; BCP ( control pills) initiation Z30.011 and Anxiety F41.[address] [id number] [place] [id number] May, Diabetes type 2, uncontrolled E11.65 ; M ixed hyperlipidemia E78.2 ; Current severe episode of major depressive disorder without psychotic features without prior episode F32.2 ; Vaginal discharge N89.8 ; Vision changes H53.9 and BMI 45.0-49.9, adult Z68.42 [facility] [place] [address] [id number] [place] [id number] May, Type 2 diabetes mellitus with hyperglyce mere, without long-term current use of insulin E11.65 and Mixed hyperlipidemia E78.2 [facility] [place] [address] [id number] [place] [id number] May, Type 2 diabetes mellitus with hyperglyce mere, without long-term current use of insulin E11.[address] [facility] [place] [address] [id number] [id number] May, Dental examination Z01.20 [facility] [address] [id number] [id number] May, Dental examination Z01.20 [facility] [place] [address] [id number] [id number] Apr, Dental examination Z01.20 [facility] [place] [address] [id number] [place] [id number] Jan, Mixed hyperlipidemia E78.2 and Pure hype rcholesterolemia, unspecified E78.00 [facility] [place] [address] [id number] [place] [id number] Jan, Mid-back pain, acute M54.9 ; Anxiety [...] Z68.42 and BMI 45.0-49.9, adult Z68.42 [facility] [place] [address] [id number] [place] [id number] Dec, Diabetes type 2, uncontrolled E11.65 ; M orbid obesity, unspecified obesity type E66.01 ; Mixed hyperlipidemia E78.2 ; Moderate single current episode of major depressive disorder F32.1 ; Irritability R45.4 ; Dysuria R30.0 and BCP ( control pills) initiation Z30.011 [facility] [address] [place] [id number] [address] [place] [address] [id number] Nov, Dental examination Z01.20 [facility] [place] [id number] [place] [id number] Nov, Right wrist pain M25.531 [facility] [place] [address] [place] [address], [place] [id number] Jul, BCP ( control pills) initiation Z30 .011 [facility] [place] [id number] [place] [id number] Jun, Left otitis media, unspecified chronicit y, unspecified otitis media type H66.92 ; Morbid obesity, unspecified obesity type E66.01 ; Neck pain on left side M54.2 and Uncontrolled type 2 diabetes mellitus without complication, without long- term current use of insulin E11.65 [facility] [address] [place] [address], [place] [id number] Apr, Anxiety F41.9 ; Anhedonia R45.84 ; Diffi culty sleeping G47.9 ; Type 2 diabetes mellitus with hyperglycemia, without long-term current use of insulin E11.65 ; control counseling Z30.9 ; BCP ( control pills) initiation Z30.011 and Mixed hyperlipidemia E78.2 [facility] [place] [address] [place] [address], [place] [id number] Oct, Diabetes type 2, uncontrolled E11.65 and Pure hypercholesterolemia E78.0 [facility] [address] [place] [id number] [place] [address] August, [facility] [place] [id number] [place] [id number] Jun, Diabetes type 2, uncontrolled E11.65 and Pure hypercholesterolemia E78.0 [facility] [place] [id number] [place] [id number] Jun, Diabetes type 2, uncontrolled E11.65 [facility] [address] [address] Mar, [facility] [address] [id number] [place] [id number] Mar, [facility] [place] [address] [id number] [place] [id number] Mar, Diabetes type 2, uncontrolled E11.65 [facility] [place] [address] [id number] [place] [id number] Mar, [facility] [address] [id number] [id number] August, Abdominal pain 789.00 and Frequency of u rination 788.41 [facility] [address] [facility] [id number] [address] [place] [address] Jul, [facility] [address] [facility] [id number] [address] [place] [address] Jul, [facility] [place] [address] [facility] [id number] [place] [id number] Feb, [facility] [address] [facility] [id number] [address] [place] [address] Feb, [facility] [place] [address] [facility] [id number] [place] [id number] Feb, [facility] [address] [facility] [id number] [address] [place] [address] Feb, [facility] [address] [facility] [id number] [address] [place] [address] Feb, [facility] [address] [facility] [id number] [address] [place] [address] Feb, [facility] [address] [id number] [place] [id number] Feb, [facility] [address] [facility] [id number] [address] [place] [address] Feb, [facility] [address] [id number] [place] [id number] Jan, [facility] [address] [facility] [id number] [address] [place] [address] Jan, [facility] [address] [id number] [place] [id number] Sep, [facility] [address] [id number] [address] [place] [address], [place] [address] Sep, [facility] [address] [id number] [place] [id number] August, [facility] [address] [id number] [address] [place] [address], [place] [address] August, [facility] [address] [id number] [address] [place] [address], [place] [address] Jul, [facility] [address] [id number] [place] [id number] Jul, [facility] [address] [id number] [place] [id number] Jul, [facility] [address] [id number] [place] [id number] Jul, [facility] [address] [id number] [address] [place] [address], [place] [address] Jul, [facility] [address] [facility] [id number] [address] [place] [address], [place] [address] Jul, [facility] [address] [id number] [place] [id number] Jun, [facility] [address] [id number] [address] [place] [address], [place] [address] Jun, [facility] [address] [id number] [place] [id number] May, [facility] [address] [id number] [address] [place] [address], [place] [address] May, [facility] [address] [id number] [place] [id number] Apr, [facility] [address] [id number] [address] [place] [address], [place] [address] Apr, [facility] [address] [id number] [address] [place] [address] Apr, [facility] [address] [id number] [place] [id number] Apr, [facility] [address] [id number] [address] [place] [address] Apr, [facility] [place] M [address] [id number] [place], [place] [id number] Jan, [facility] [address] [id number] [address] [place] [address] Jan, [facility] [place] [address] [id number] [place] [id number] Jan, [facility] [place] [address] [id number] [place] [id number] Dec, [facility] [place] [address] [id number] [place] [id number] Nov, [facility] [address] [facility] [id number] [address] [place] [address] Nov, [facility] [address] [id number] [address] [place] [address] Nov, [facility] [address] [id number] [place] [id number] Nov, [facility] [address] [facility] [id number] [address] [place] [address] Nov, [facility] [address] [facility] [id number] [address] [place] [address] Nov, [facility] [address] [id number] [place] [id number] Nov, IMMUNIZATIONS No Known Immunizations SOCIAL HISTORY Never Assessed REASON FOR VISIT PLAN OF CARE VITAL SIGNS Height 64 in 2014-02-26 Weight 313 lbs 2014-02-26 Temperature 97.7 degrees Fahrenheit 2014-02-26 Heart Rate 76 bpm 2014-02-26 Respiratory Rate 24 2014-02-26 Blood pressure systolic 102 mmHg 2014-02-26 Blood pressure diastolic 62 mmHg 2014-02-26 MEDICATIONS Unknown Medications RESULTS No Results PROCEDURES Procedure Date Ordered Result Body Site SCR PAP SMER;NEW PT OBTAIN PREP&CONVY-LAB Feb 26, 2014 CYTOPATH C/V AUTO FLUID REDO Feb 26, 2014 CULTURE, BACTERIA, OTHER Feb 26, 2014 INSTRUCTIONS MEDICATIONS ADMINISTERED No Known Medications MEDICAL [...]
--- OUTSIDE RECORDS SUMMARY | 2019-11-08 17:50 | XMS REPORT ---
Author Author Jennifer Echeverria [facility] Address [address] [place] [address] Care Team Providers Care Adult Education Teacher Name Role Phone CORA Echeverria Unavailable PROBLEMS Type Condition ICD9-CM Code [id number] Code Onset Dates Condition S tatus SNOMED Code Problem Diabetes type 2, uncontrolled E11.65 Active 306138717 Problem Type 2 diabetes mellitus wit h hyperglycemia, without long-term current use of insulin E11.65 Active 50433020 Problem Pure hypercholesterolemia E78.0 Acti ve 154181183 Problem Anhedonia R45.84 Active 89591569 Problem Anxiety F41.9 Active 32185614 Problem Morbid obesity, unspecified obesity type E66.01 Active 811057042 Problem Uncontrolled type 2 diabetes mellitus without complication, without long-term current use of insulin E11.65 Active 017491410 Problem Moderate single current episode of major depressive disord er F32.1 Active 28454270 Problem Current severe episode of ma 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 without prior episode F32.2 Active 95504166 Problem Difficulty sleeping G47.9 Active 224259838 Problem Chronic GERD K21.9 Active 2606987 09 Problem Mixed hyperlipidemia E78.2 Active 194785554 Problem Irritability R45.4 Active 0805391 7 Problem Other obesity due to excess calories E66.09 Active 840699199 Problem Body mass index (BMI) of 45.0-49.9 in adult Z68.42 Active 339776747 Problem Pure hypercholesterolemia, unspecified E78.00 Active 560379723 ALLERGIES No Information ENCOUNTERS Encounter Location Date Diagnosis [place] [address] [facility] [place] [address] Jan, Caries K02.9 [place] [address] [facility] [place] [address] Jan, Dental examination Z01.20 and Caries K02 .9 [facility] [address] [id number] [place] [id number] Apr, [place] [id number] [place] [id number] Mar, Chronic GERD K21.9 and Diarrhea R19.7 [place] [id number] Mar, BMI 45.0-49.9, adult Z68.42 and Viral syndrome B34.[address] [id number] Feb, URI, acute J06.9 and BMI 45.0-49.9, adult Z68.42 [place] [address] [id number] [place] [id number] Oct, Dental examination Z01.20 [facility] [address] [place] [address] [place] [id number] Oct, Dental examination Z01.[address] [place] [id number] August, BMI 45.0-49.9, adult Z68.42 ; Diabetes t ype 2, uncontrolled E11.65 and Mixed hyperlipidemia E78.2 [facility] [address] [place] [address] AVE [id number] [place] [id number] August, Dental examination Z01.20 [facility] [address] [facility] [place] [address] Jul, Current severe episode of major depressi ve disorder without psychotic features without prior episode F32.[address] [id number] Jun, Mixed hyperlipidemia E78.2 ; Diabetes type 2, uncontrolled E11.65 ; BMI 45.0-49.9, adult Z68.42 ; Stressful life event affecting family Z63.79 ; BCP ( control pills) initiation Z30.011 and Anxiety F41.[address] [place] [id number] May, Diabetes type 2, uncontrolled E11.65 ; Mixed hyperlipidemia E78.2 ; Current severe episode of major depressive disorder without psychotic features without prior episode F32.2 ; Vaginal discharge N89.8 ; Vision changes H53.9 and BMI 45.0-49.9, adult Z68.[address] [id number] May, Type 2 diabetes mellitus with hyperglycemia, without long-term current use of insulin E11.65 and Mixed hyperlipidemia E78.[address] [id number] May, Type 2 diabetes mellitus with hyperglycemia, without long-term current use of insulin E11.[address] [id number] May, Dental examination Z01.[address] [id number] May, Dental examination Z01.[address] [id number] Apr, Dental examination Z01.[address] [id number] Jan, Mixed hyperlipidemia E78.2 and Pure hypercholesterolemia, unspecified E78.[address] [id number] Jan, Mid- back pain, acute M54.9 ; [...] adult Z68.42 and BMI 45.0-49.9, adult Z68.[address] [id number] Dec, Diabetes type 2, uncontrolled E11.65 ; Morbid obesity, unspecified obesity type E66.01 ; Mixed hyperlipidemia E78.2 ; Moderate single current episode of major depressive disorder F32.1 ; Irritability R45.4 ; Dysuria R30.0 and BCP ( control pills) initiation Z30.011 [facility] [address] [facility]B [place] [id number] Nov, Dental examination Z01.[address] [id number] Nov, Right wrist pain M25.[address] [id number] Jul, BCP ( control pills) initiation Z30.[address] [id number] Jun, Left otitis media, unspecified chronicity, unspecified otitis media type H66.92 ; Morbid obesity, unspecified obesity type E66.01 ; Neck pain on left side M54.2 and Uncontrolled type 2 diabetes mellitus without complication, without long- term current use of insulin E11.[address] [id number] Apr, Anxiety F41.9 ; Anhedonia R45.84 ; Difficulty sleeping G47.9 ; Type 2 diabetes mellitus with hyperglycemia, without long-term current use of insulin E11.65 ; control counseling Z30.9 ; BCP ( control pills) initiation Z30.011 and Mixed hyperlipidemia E78.[address] [id number] Oct, Diabetes type 2, uncontrolled E11.65 and Pure hypercholesterolemia E78.0 [facility] [address] [place] [address] [place] [address] August, [address] [id number] Jun, Diabetes type 2, uncontrolled E11.65 and Pure hypercholesterolemia E78.[address] [id number] Jun, Diabetes type 2, uncontrolled E11.65 [facility] [address] [address] Mar, [address] [place] [address] [place] [id number] Mar, [facility] [place] [id number] [place] [address] [id number] Mar, Diabetes type 2, uncontrolled E11.65 [facility] [place] [id number] Mar, [facility] [place] [address] [facility] [id number] [id number] August, Abdominal pain 789.00 and Frequency of u rination 788.41 [facility] [address] [address] Jul, [facility] [address] [address] Jul, [facility] [place] [id number] Feb, [facility] [address] [address] Feb, [facility] [place] [id number] [place] [id number] Feb, [facility] [address] [address] Feb, [facility] [address] [address] Feb, [facility] [address] [address] Feb, [facility] [place] [id number] [place] [address] [id number] Feb, [facility] [address] [address] Feb, [facility] [address] [id number] Jan, [facility] [address] [address] Jan, [facility] [address] [id number] Sep, [facility] [address] [facility] [place] [address] Sep, [facility] A[facility] M [address] [place] [id number] [id number] August, [facility] [address] [place] [id number] [place] [address] August, [facility] [address] [place] [id number] [place] [address] Jul, [facility] M [address] [place] [id number] [id number] Jul, [facility] M [address] [place] [id number] [id number] Jul, [facility] [address] [place] [id number] [id number] Jul, [facility] [address] [id number] [place] [address] Jul, [facility] [id number] [place] [address] Jul, [facility] [address] [place] [facility] [id number] Jun, [facility] [id number] [place] [address] Jun, [facility] A[facility] M [address] [facility]07[place] [id number] May, [facility] [address] [id number] [place] [address] May, [facility] M [address] [place] [id number] Apr, [facility] [address] [id number] [place] [address] Apr, [facility] [address] [facility] [place] [address] Apr, [facility] M [address] [facility] [id number] Apr, [facility] [address] [facility] [place] [address] Apr, [facility] [address] [facility] [place] [id number] Jan, [facility] [address] [place] [id number] [place] [address] Jan, [facility] [address] [facility] [id number] Jan, [facility] [address] [place] [id number] [place] [id number] Dec, [facility] [address] [id number] [place] [address] [id number] Nov, [facility] [address] [address] Nov, [facility] [address] [address] Nov, [place] [id number] [place] [id number] Nov, [facility] [address] [place] [address] [id number] [place] [address] Nov, [facility] [address] [place] [address] [address] [place] [address] Nov, [place] [id number] [place] [address] [id number] Nov, IMMUNIZATIONS No Known Immunizations SOCIAL HISTORY Never Assessed REASON FOR VISIT PLAN OF CARE VITAL SIGNS Height 64 in 2013-08-07 Weight 299 lbs 2013-08-07 Temperature 98.6 degrees Fahrenheit 2013-08-07 Heart Rate 92 bpm 2013-08-07 Respiratory Rate 14 2013-08-07 Blood pressure systolic 112 mmHg 2013-08-07 Blood pressure diastolic 86 mmHg 2013-08-07 MEDICATIONS Unknown Medications RESULTS No Results PROCEDURES Procedure Date Ordered Result Body Site URINE TEST August 07, 2013 INSTRUCTIONS MEDICATIONS ADMINISTERED No Known Medications [...]
--- OUTSIDE RECORDS SUMMARY | 2019-11-08 17:51 | XMS REPORT ---
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 without prior episode F32.2 Active 92293916 Problem Pure hypercholesterolemia, unspecified E78.00 Active 873106313 Problem Irritability R45.4 Active 8841159 7 Problem Moderate single current episode of major depressive disord er F32.1 Active 03520645 Problem Body mass index (BMI) of 45.0-49.9 in adult Z68.42 Active 734680120 Problem Other obesity due to excess calories E66.09 Active 063903531 Problem Type 2 diabetes mellitus wit h hyperglycemia, without long-term current use of insulin E11.65 Active 29189264 Problem Anxiety F41.9 Active 75919417 Problem Diabetes type 2, uncontrolled E11.65 Active 451024380 Problem Anhedonia R45.84 Active 50087664 Problem Pure hypercholesterolemia E78.0 Acti ve 128398395 Problem Mixed hyperlipidemia E78.2 Active 356494006 ALLERGIES No Known Allergies ENCOUNTERS Encounter Location Date Diagnosis [facility] [address] [id number] [place] [id number] 02 Oct, 2017 Dental examination Z01.20 [facility] [address] [facility] [id number] [place] [id number] 02 Oct, 2018 Dental examination Z01.20 [facility] [address] [facility] [id number] [place] [id number] August, BMI 45.0-49.9, adult Z68.42 ; Diabetes t ype 2, uncontrolled E11.65 and Mixed hyperlipidemia E78.2 [facility] [address] [id number] [place] [id number] August, Dental examination Z01.20 [facility] [address] [facility] [id number] [address] [place] [address] Jul, Current severe episode of ma 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 without prior episode F32.2 [facility] [address] [facility] [id number] [place] [id number] Jun, Mixed hyperlipidemia E78.2 ; Diabetes ty pe 2, uncontrolled E11.65 ; BMI 45.0- 49.9, adult Z68.42 ; Stressful life event affecting family Z63.79 ; BCP ( control pills) initiation Z30.011 and Anxiety F41.9 [facility] 120 [facility] [id number] [place] [id number] May, Diabetes type 2, uncontrolled E11.65 ; M ixed hyperlipidemia E78.2 ; Current severe episode of major depressive disorder without psychotic features without prior episode F32.2 ; Vaginal discharge N89.8 ; Vision changes H53.9 and BMI 45.0-49.9, adult Z68.42 [facility] 120 [facility] [id number] [place] [id number] May, Type 2 diabetes mellitus with hyperglyce mere, without long-term current use of insulin E11.65 and Mixed hyperlipidemia E78.2 [facility] [address] [facility] [id number] [place] [id number] May, Type 2 diabetes mellitus with hyperglyce mere, without long-term current use of insulin E11.65 [facility] [address] [id number] [place] [id number] May, Dental examination Z01.20 [facility] [address] [id number] [place] [id number] May, Dental examination Z01.20 [place] [address] [id number] [place] [id number] Apr, Dental examination Z01.20 [facility] [address] [facility] [id number] [place] [id number] Jan, Mixed hyperlipidemia E78.2 and Pure hype rcholesterolemia, unspecified E78.00 [facility] [address] [facility] [id number] [place] [id number] Jan, Mid-back pain, acute M54.9 ; Anxiety [...] adult Z68.42 and BMI 45.0-49.9, adult Z68.42 [place] [address] [facility] [id number] [place] [id number] Dec, Diabetes type 2, uncontrolled E11.65 ; M orbid obesity, unspecified obesity type E66.01 ; Mixed hyperlipidemia E78.2 ; Moderate single current episode of major depressive disorder F32.1 ; Irritability R45.4 ; Dysuria R30.0 and BCP ( control pills) initiation Z30.011 [facility] [address] [id number] [address] [place] [address] [id number] Nov, Dental examination Z01.20 [facility] [address] [facility] [id number] [place] [id number] Nov, Right wrist pain M25.531 [facility] [address] [facility] [id number] [place] [id number] Jul, BCP ( control pills) initiation Z30 .011 [facility] [address] [facility] [id number] [place] [id number] Jun, Left otitis media, unspecified chronicit y, unspecified otitis media type H66.92 ; Morbid obesity, unspecified obesity type E66.01 ; Neck pain on left side M54.2 and Uncontrolled type 2 diabetes mellitus without complication, without long- term current use of insulin E11.65 [facility] [address] [facility] [id number] [place] [id number] 03 Apr, 2016 Anxiety F41.9 ; Anhedonia R45.84 ; Diffi culty sleeping G47.9 ; Type 2 diabetes mellitus with hyperglycemia, without long-term current use of insulin E11.65 ; control counseling Z30.9 ; BCP ( control pills) initiation Z30.011 and Mixed hyperlipidemia E78.2 [facility] [place] [address] [facility] [id number] [place] [id number] 08 Oct, 2015 Diabetes type 2, uncontrolled E11.65 and Pure hypercholesterolemia E78.0 [place] [address] [address] August, [facility] [place] [address] [place] [id number] [place] [id number] Jun, Diabetes type 2, uncontrolled E11.65 and Pure hypercholesterolemia E78.0 [facility] [place] [address] [facility] [id number] [place] [id number] Jun, Diabetes type 2, uncontrolled E11.65 [place] [address] [address] Mar, [facility] [address] [place] [id number] [place] [id number] Mar, [facility] [place] [address] [place] [id number] [place] [id number] Mar, Diabetes type 2, uncontrolled E11.65 [facility] [facility] M [address] [facility] [id number] [place] [id number] Mar, [facility] [place] [address] [id number] [place] [id number] August, Abdominal pain 789.00 and Frequency of u rination 788.41 [facility] [address] [address] Jul, [facility] [address] [address] Jul, [facility] [address] [id number] [place] [id number] Feb, [facility] [address] [id number] [address] [place] [address] Feb, [facility] M [address] [id number] [place] [id number] Feb, [facility] [address] [id number] [address] [place] [address] Feb, [facility] [address] [id number] [address] [place] [address], [place] [address] Feb, [facility] [address] [id number] [address] [place] [address] Feb, [facility] [address] [id number] [place] [id number] Feb, [facility] [address] [id number] [address] [place] [address] Feb, [facility] [address] [id number] [place] [id number] Jan, [facility] [address] [id number] [address] [place] [address] Jan, [facility] M [address] [id number] [place] [id number] Sep, [facility] [address] [id number] [address] [place] [address], [place] [address] Sep, [facility] [address] [id number] [place] [id number] August, [facility] [address] [id number] [address] [place] [address], [place] [address] August, [facility] [address] [id number] [address] [place] [address], [place] [address] Jul, [facility] M [address] [id number] [place] [id number] Jul, [facility] M [address] [id number] [place] [id number] Jul, [facility] [address] [id number] [place] [id number] Jul, [facility] [address] [id number] [address] [place] [address], [place] [address] Jul, [facility] [address] [id number] [address] [place] [address], [place] [address] Jul, [facility] M [address] [id number] [place] [id number] Jun, [facility] [address] [id number] [address] [place] [address], [place] [address] Jun, [facility] [address] [id number] [place] [id number] May, [facility] [address] [id number] [address] [place] [address], [place] [address] May, [facility] [address] [id number] [place] [id number] Apr, [facility] [address] [id number] [address] [place] [address] Apr, [facility] [address] [facility] [id number] [address] [place] [address] Apr, [facility] [address] [id number] [place] [id number] Apr, [facility] [address] [id number] [address] [place] [address], [place] [address] Apr, [facility] M [address] [id number] [place] [id number] Jan, [facility] [address] [id number] [address] [place] [address], [place] [address] Jan, [facility] [address] [id number] [place] [id number] Jan, [facility] M [address] [id number] [place] [id number] Dec, [facility] [address] [facility] [id number] [place] [id number] Nov, [facility] [address] [facility] [id number] [address] [place] [address] Nov, [facility] [address] [facility] [id number] [address] [place] [address] Nov, [facility] ANA M [address] [facility] [id number] [place] [id number] Nov, [facility] [address] [facility] [id number] [address] [place] [phone] Nov, [facility] [address] [facility] [id number] [address] [place] [id number] Nov, [facility] ANA M [address] [facility] [id number] [place] [id number] Nov, IMMUNIZATIONS No Known Immunizations SOCIAL HISTORY Never Assessed REASON FOR VISIT facial swelling PLAN OF CARE Activity Details Follow Up 1 Week Reason:1 hour restora tive VITAL SIGNS Height 64 in 2017-08-17 Blood pressure systolic 118 mmHg 2017-08-17 Blood pressure diastolic 79 mmHg 2017-08-17 MEDICATIONS Medication Instructions Dosage Frequency Start Date End Date Duration S tatus Clindamycin HCl 150 MG Orally every 8 hrs 2 capsules 8h 5 day(s) Active Januvia 50 mg Orally Once a day 1 tablets 24h Apr, Active Ibuprofen 600 MG Orally Three times a day 1 tablet with food or milk as needed 8h Active Simvastatin 20 mg Orally Once a day 2 tablet in the evening 24h Dec, 0 days Active Glucophage 1000 MG Orally Twice a day 1 tablet with meals 12h Apr Active Fish Oil 1000 MG Orally Once a day 2 capsules 24h Jan, Active RESULTS No Results PROCEDURES Procedure Date Ordered Result Body Site LTD ORAL EVALUATION - PROBLEM FOCUS August 17, 2017 INTRAORL-PERIAPICAL 1 FILM 20076 August 17, 2017 BITEWING - SINGLE FILM August 17, 2017 INSTRUCTIONS MEDICATIONS ADMINISTERED No Known Medications MEDICAL (GENERAL) HISTORY Type Description Date Medical History Depressive disorder, not elsewhere class ified Medical History Anxiety state, unspecified Medical History Headache Medical History Obesity, unspecified Medical History Other and unspecified hyperlipidemia Medical History Nondependent tobacco use disorder Medical History type II diabetes Medical History Polycystic ovaries Medical History Hirsutism Surgical History tonsillectomy 1988 Surgical History lasik bilat 2008 Surgical History lesion on left arm removed 1999 Surgical History wisdom teeth extraction 2008 Hospitalization History Syncope episode at work, hyp ertension, was seen at [facility] ER 04/09/16
--- OUTSIDE RECORDS SUMMARY | 2019-11-08 17:51 | XMS REPORT ---
Author Author Jennifer Lazo Doctor Organization [facility] Address Unknown Phone Unavailable Care Team Providers Care Recreation Manager Name Role Phone Migration, Doctor Unavailable Unavailable PROBLEMS Type Condition ICD9-CM Code HCY31-DK Code Onset Dates Condition S tatus SNOMED Code Problem Diabetes type 2, uncontrolled E11.65 Active 946198643 Problem Type 2 diabetes mellitus wit h hyperglycemia, without long-term current use of insulin E11.65 Active 22417349 Problem Pure hypercholesterolemia E78.0 Acti ve 936326839 Problem Anhedonia R45.84 Active 16677964 Problem Anxiety F41.9 Active 19558009 Problem Morbid obesity, unspecified obesity type E66.01 Active 245323472 Problem Uncontrolled type 2 diabetes mellitus without complication, without long-term current use of insulin E11.65 Active 002054402 Problem Moderate single current episode of major depressive disord er F32.1 Active 93266465 Problem Current severe episode of ma 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 without prior episode F32.2 Active 53959766 Problem Difficulty sleeping G47.9 Active 094621817 Problem Chronic GERD K21.9 Active 5464758 09 Problem Mixed hyperlipidemia E78.2 Active 954296773 Problem Irritability R45.4 Active 9290711 7 Problem Other obesity due to excess calories E66.09 Active 314358227 Problem Body mass index (BMI) of 45.0-49.9 in adult Z68.42 Active 829085771 Problem Pure hypercholesterolemia, unspecified E78.00 Active 641236348 ALLERGIES No Information ENCOUNTERS Encounter Location Date Diagnosis [facility] [place] [address] [id number] [place], [place] [id number] Apr, [facility] [address] [id number] [place] [id number] Mar, Chronic GERD K21.9 and Diarrhea R19.7 [facility] [address] [id number] [place] [id number] Mar, BMI 45.0-49.9, adult Z68.42 and Viral sy ndrome B34.9 [facility] [address] [facility] [id number] [place] [id number] Feb, URI, acute J06.9 and BMI 45.0-49.9, adul t Z68.42 [facility] [address] [id number] [id number] Oct, Dental examination Z01.20 [facility] [address] [id number] [id number] Oct, Dental examination Z01.20 [facility] [id number] [place] [id number] August, BMI 45.0-49.9, adult Z68.42 ; Diabetes t ype 2, uncontrolled E11.65 and Mixed hyperlipidemia E78.2 [facility] [address] [id number][place] [id number] August, Dental examination Z01.20 [facility] [address] [facility] [id number] [address] [place] [phone] Jul, Current severe episode of ma 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 without prior episode F32.[address] [id number] [place] [id number] Jun, Mixed hyperlipidemia E78.2 ; Diabetes ty pe 2, uncontrolled E11.65 ; BMI 45.0- 49.9, adult Z68.42 ; Stressful life event affecting family Z63.79 ; BCP ( control pills) initiation Z30.011 and Anxiety F41.[address] [id number] [place] [id number] May, Diabetes type 2, uncontrolled E11.65 ; M ixed hyperlipidemia E78.2 ; Current severe episode of major depressive disorder without psychotic features without prior episode F32.2 ; Vaginal discharge N89.8 ; Vision changes H53.9 and BMI 45.0-49.9, adult Z68.[address] [id number] [place] [id number] May, Type 2 diabetes mellitus with hyperglyce mere, without long-term current use of insulin E11.65 and Mixed hyperlipidemia E78.2 [place] [id number] [id number] May, Type 2 diabetes mellitus with hyperglyce mere, without long-term current use of insulin E11.65 [facility] [address] [id number] [id number] May, Dental examination Z01.20 [facility] [place] [address] [id number][place] [id number] 14 May, 2017 Dental examination Z01.20 [facility] [address] [id number] [place] [id number] Apr, Dental examination Z01.20 [place] [id number] [id number] 12 Jan, 2017 Mixed hyperlipidemia E78.2 and Pure hype rcholesterolemia, unspecified E78.00 [address]00565100[facility] [id number] 10 Jan, 2017 Mid-back pain, acute M54.9 ; Anxiety F41 [...] adult Z68.42 and BMI 45.0-49.9, adult Z68.42 [facility] [address] [place] [id number] [place] [id number] 26 Dec, 2016 Diabetes type 2, uncontrolled E11.65 ; M orbid obesity, unspecified obesity type E66.01 ; Mixed hyperlipidemia E78.2 ; Moderate single current episode of major depressive disorder F32.1 ; Irritability R45.4 ; Dysuria R30.0 and BCP ( control pills) initiation Z30.011 [facility] [address] [facility] [id number] [address] [place] [id number] Nov, Dental examination Z01.20 [facility] [place] [address] [facility] [id number] [place] [id number] Nov, Right wrist pain M25.531 [facility] [place] [address] [facility] [id number] [place] [id number] Jul, BCP ( control pills) initiation Z30 .011 [facility] [place] [id number] [place] [id number] Jun, Left otitis media, unspecified chronicit y, unspecified otitis media type H66.92 ; Morbid obesity, unspecified obesity type E66.01 ; Neck pain on left side M54.2 and Uncontrolled type 2 diabetes mellitus without complication, without long- term current use of insulin E11.65 [facility] [place] [id number] [place] [id number] Apr, Anxiety F41.9 ; Anhedonia R45.84 ; Diffi culty sleeping G47.9 ; Type 2 diabetes mellitus with hyperglycemia, without long-term current use of insulin E11.65 ; control counseling Z30.9 ; BCP ( control pills) initiation Z30.011 and Mixed hyperlipidemia E78.2 [facility] [place] [id number] [place] [address], [place] [id number] Oct, Diabetes type 2, uncontrolled E11.65 and Pure hypercholesterolemia E78.0 [facility] [address] [place] [id number] [address] [place] [phone] August, [facility] [place] [id number] [place] [id number] Jun, Diabetes type 2, uncontrolled E11.65 and Pure hypercholesterolemia E78.0 [facility] [place] [address] [place] [id number] [place] [id number] Jun, Diabetes type 2, uncontrolled E11.65 [facility] [address] [place] [id number] [address] [place] [phone] Mar, [facility] [place] [address] [place] [id number] [place] [id number] Mar, [place] [id number] [id number] Mar, Diabetes type 2, uncontrolled E11.65 [facility] [place] [address] [id number] [place] [id number] Mar, [facility] [address] [id number] [place] [id number] August, Abdominal pain 789.00 and Frequency of u rination 788.41 [facility] [address] [id number] [address] [place] [address], [place] [address] Jul, [facility] [address] [id number] [address] [place] [id number] Jul, [facility] [place] [address] [id number] [place] [id number] Feb, [facility] [address] [facility] [id number] [address] [place] [phone] Feb, [facility] [place] [address] [id number] [place] [id number] Feb, [facility] [address] [facility] [id number] [address] [place] [phone] Feb, [facility] [address] [facility] [id number] [address] [place] [phone] Feb, [facility] [address] [facility] [id number] [address] [place] [phone] Feb, [facility] [place] [address] [id number] [place] [id number] Feb, [facility] [address] [id number] [address] [place] [phone] Feb, [facility] [place] [address] [id number] [place] [id number] Jan, [facility] [address] [facility] [id number] [address] [place] [phone] Jan, [facility] [place] [address] [id number] [place] [id number] Sep, [facility] [address] [id number] [address] [place] [address], [place] [address] Sep, [facility] [place] [address] [id number] [place] [id number] August, [facility] [address] [id number] [address] [place] [address], [place] [address] August, [facility] [address] [id number] [address] [place] [address], [place] [phone] Jul, [facility] [place] [address] [id number] [place] [id number] Jul, [facility] [place] [address] [id number] [place] [id number] Jul, [facility] [place] [address] [id number] [place] [id number] Jul, [facility] [address] [id number] [address] [place] [address], [place] [address] Jul, [facility] [address] [id number] [address] [place] [address], [place] [address] Jul, [facility] [place] [address] [id number] [place] [id number] Jun, [facility] [address] [id number] [address] [place] [address], [place] [address] Jun, [facility] [place] [address] [id number] [place] [id number] May, [facility] [address] [id number] [address] [place] [address], [place] [address] May, [facility] [place] [address] [id number] [place] [id number] Apr, [facility] [address] [id number] [address] [place] [address], [place] [address] Apr, [facility] [address] [id number] [address] [place] [address], [place] [address] Apr, [facility] [place] [address] [id number] [place] [id number] Apr, [facility] [address] [facility] [id number] [address] [place] [phone] Apr, [facility] [address] [facility] [id number] [place] [id number] Jan, [facility] [address] [facility] [id number] [address] [place] [phone] Jan, [facility] [address] [id number] [place] [id number] Jan, [facility] [address] [id number] [place] [id number] Dec, [facility] [address] [facility] [id number] [place] [id number] Nov, [facility] [address] [facility] [id number] [address] [place] [phone] Nov, [facility] [address] [facility] [id number] [address] [place] [phone] Nov, [facility] [address] [facility] [id number] [place] [id number] Nov, [facility] [address] [facility] [id number] [address] [place] [id number] Nov, [facility] [address] [facility] [id number] [address] [place] [phone] Nov, [facility] [address] [facility] [id number] [place] [id number] Nov, IMMUNIZATIONS No Known Immunizations SOCIAL HISTORY Never Assessed REASON FOR VISIT EMR-[facility] [place]AN OF CARE VITAL SIGNS MEDICATIONS Unknown [...]
--- OUTSIDE RECORDS SUMMARY | 2019-11-08 17:51 | XMS REPORT ---
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 without prior episode F32.2 Active 69363896 Problem Pure hypercholesterolemia, unspecified E78.00 Active 103816924 Problem Irritability R45.4 Active 1460691 7 Problem Moderate single current episode of major depressive disord er F32.1 Active 07372150 Problem Body mass index (BMI) of 45.0-49.9 in adult Z68.42 Active 741454826 Problem Other obesity due to excess calories E66.09 Active 434726549 Problem Type 2 diabetes mellitus wit h hyperglycemia, without long-term current use of insulin E11.65 Active 66168982 Problem Anxiety F41.9 Active 48768705 Problem Diabetes type 2, uncontrolled E11.65 Active 607851778 Problem Anhedonia R45.84 Active 36380772 Problem Pure hypercholesterolemia E78.0 Acti ve 863103855 Problem Mixed hyperlipidemia E78.2 Active 172029428 ALLERGIES No Known Allergies ENCOUNTERS Encounter Location Date Diagnosis [facility] [address] [id number] [place] [id number] 02 Oct, 2018 [facility]01.[facility] [address] [id number] [id number] Oct, 2018 [facility] Z01.20 [facility] [address] [id number] [place] [id number] August, BMI 45.0-49.9, adult Z68.42 ; Diabetes t ype 2, uncontrolled E11.65 and Mixed hyperlipidemia E78.2 [facility] [address] [id number] [place] [id number] August, Dental examination Z01.20 [facility] [address] [facility] [id number] [place] [address] 02 Jul, 2017 Current severe episode of ma 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 without prior episode F32.2 [facility] [address] [facility] [id number] [place] [id number] Jun, Mixed hyperlipidemia E78.2 ; Diabetes ty pe 2, uncontrolled E11.65 ; BMI 45.0- 49.9, adult Z68.42 ; Stressful life event affecting family Z63.79 ; BCP ( control pills) initiation Z30.011 and Anxiety F41.9 [facility] [address] [facility] [id number] [place] [id number] May, Diabetes type 2, uncontrolled E11.65 ; M ixed hyperlipidemia E78.2 ; Current severe episode of major depressive disorder without psychotic features without prior episode F32.2 ; Vaginal discharge N89.8 ; Vision changes H53.9 and BMI 45.0-49.9, adult Z68.42 [facility] [address] [facility] [id number] [place] [id number] May, Type 2 diabetes mellitus with hyperglyce mere, without long-term current use of insulin E11.65 and Mixed hyperlipidemia E78.2 [facility] [address] [facility] [id number] [place] [id number] May, Type 2 diabetes mellitus with hyperglyce mere, without long-term current use of insulin E11.65 [facility] [address] [id number] [place] [id number] May, Dental examination Z01.20 [facility] [address] [id number] [id number] May, Dental examination Z01.[address] [place] [address] [id number] [place] [id number] Apr, Dental examination Z01.20 [facility] [address] [facility] [id number] [place] [id number] Jan, Mixed hyperlipidemia E78.2 and Pure hype rcholesterolemia, unspecified E78.00 [facility] [address] [facility] [id number] [place] [id number] Jan, Mid-back pain, acute M54.9 ; Anxiety [...] adult Z68.42 and BMI 45.0-49.9, adult Z68.42 [place] [address] [facility] [id number] [place] [id number] Dec, Diabetes type 2, uncontrolled E11.65 ; M orbid obesity, unspecified obesity type E66.01 ; Mixed hyperlipidemia E78.2 ; Moderate single current episode of major depressive disorder F32.1 ; Irritability R45.4 ; Dysuria R30.0 and BCP ( control pills) initiation Z30.011 [facility] [address] [id number] [place] [id number] Nov, Dental examination Z01.20 [facility] [address] [facility] [id number] [place] [id number] Nov, Right wrist pain M25.531 [place] [address] [facility] [id number] [place] [id number] Jul, BCP ( control pills) initiation Z30 .011 [facility] [address] [facility] [id number] [place] [id number] Jun, Left otitis media, unspecified chronicit y, unspecified otitis media type H66.92 ; Morbid obesity, unspecified obesity type E66.01 ; Neck pain on left side M54.2 and Uncontrolled type 2 diabetes mellitus without complication, without long- term current use of insulin E11.65 [facility] [address] [facility] [id number] [place] [id number] 03 Apr, 2016 Anxiety F41.9 ; Anhedonia R45.84 ; Diffi culty sleeping G47.9 ; Type 2 diabetes mellitus with hyperglycemia, without long-term current use of insulin E11.65 ; control counseling Z30.9 ; BCP ( control pills) initiation Z30.011 and Mixed hyperlipidemia E78.2 [facility] [place] [address] [id number] [place] [id number] 08 Oct, 2015 Diabetes type 2, uncontrolled E11.65 and Pure hypercholesterolemia E78.0 [facility] [address] [place] [id number] [address] [place] [address] August, [facility] [place] [address] [id number] [place] [id number] Jun, Diabetes type 2, uncontrolled E11.65 and Pure hypercholesterolemia E78.0 [facility] [place] [address] [id number] [place] [id number] Jun, Diabetes type 2, uncontrolled E11.65 [facility] [address] [place] [id number] [address] [place] [address] Mar, [facility] [address] [id number] [place] [id number] Mar, [facility] [address] [id number] [place] [id number] Mar, Diabetes type 2, uncontrolled E11.65 [facility] [address] [facility] [id number] [place] [id number] Mar, [facility] [place] [address] [facility] [id number] [place] [id number] August, Abdominal pain 789.00 and Frequency of u rination 788.41 [facility] [address] [place] [id number] [address] [place] [id number] Jul, [facility] [address] [place] [id number] [address] Jul, [facility] M [address] [id number] [place] [id number] Feb, [facility] [place] [facility] [address] [id number] [address] [place] [address] Feb, [facility] [place] M [address] [id number] [place] [id number] Feb, [facility] [place] [facility] [address] [id number] [address] [place] [phone] Feb, [facility] [place] [facility] [address] [id number] [address] [place] [address], [place] [address] Feb, [facility] [place] [facility] [address] [id number] [address] [place] [address] Feb, [facility] [place] M [address] [id number] [place] [id number] Feb, [facility] [place] [facility] [address] [id number] [address] [place] [id number] Feb, [facility] A[place] M [address] [id number] [place] [id number] Jan, [facility] [place] [facility] [address] [id number] [address] [place] [address] Jan, [facility] A[place] M [address] [id number] [place] [id number] Sep, [facility] [place] [facility] [address] [id number] [address] [place] [id number] Sep, [facility] [place] M [address] [id number] [place] [id number] August, [facility] [place] [facility] [address] [id number] [address] [place] [address], [place] [address] August, [facility] [place] [facility] [address] [id number] [address] [place] [address], [place] [address] Jul, [facility] [place] M [address] [id number] [place] [id number] Jul, [facility] A[place] M [address] [id number] [place] [id number] Jul, [facility] M [address] [id number] [place] [id number] Jul, [facility] [place] [facility] [address] [id number] [address] [place] [address], [place] [address] Jul, [facility] [place] [facility] [address] [id number] [address] [place] [address], [place] [address] Jul, [facility] [place] M [address] [id number] [place] [id number] Jun, [facility] [place] [facility] [address] [id number] [address] [place] [address], [place] [address] Jun, [facility] [place] [address] [id number] [place] [id number] May, [facility] [place] [facility] [address] [id number] [address] [place] [address], [place] [address] May, [facility] [place] [address] [id number] [place] [id number] Apr, [facility] [place] [facility] [address] [id number] [address] [place] [address], [place] [address] Apr, [facility] [place] [facility] [address] [facility] [id number] [address] [place] [address], [place] [address] Apr, [facility] [place] [address] [id number] [place] [id number] Apr, [facility] [place] [facility] [address] [id number] [address] [place] [address], [place] [address] Apr, [facility] [place] M [address] [id number] [place] [id number] Jan, [facility] [place] [facility] [address] [id number] [address] [place] [address], [place] [address] Jan, [facility] [place] M [address] [id number] [place] [id number] Jan, [facility] [place] M [address] [id number] [place] [id number] Dec, [facility] [address] [id number] [place] [id number] Nov, [facility] [address] [facility] [id number] [address] [place] [id number] Nov, [facility] [address] [facility] [id number] [address] [place] [id number] Nov, [facility] [address] [facility] [id number] [place] [id number] Nov, [facility] [address] [facility] [id number] [address] [place] [phone] Nov, [facility] [address] [facility] [id number] [address] [place] [phone] Nov, [facility] [address] [facility] [id number] [place] [id number] Nov, IMMUNIZATIONS No Known Immunizations SOCIAL HISTORY Never Assessed REASON FOR VISIT Diabetes check up has not been checking blood sugars at home. Sunshine julien PLAN OF CARE Activity Details Follow Up 3 Months Reason:CHM DM VITAL SIGNS Height 64 in 2017-09-02 Weight 286.0 lbs 2017-09-02 Temperature 98.8 degrees Fahrenheit 2017-09-02 Heart Rate 88 bpm 2017-09-02 Respiratory Rate 18 2017-09-02 BMI 49.09 kg/m2 2017-09-02 Blood pressure systolic 130 mmHg 2017-09-02 Blood pressure diastolic 88 mmHg 2017-09-02 MEDICATIONS Medication Instructions Dosage Frequency Start Date End Date Duration S tatus Simvastatin 40 mg Orally Once a day 1 tablet in the evening 24h August, 90 days Active Glucophage 1000 MG Orally Twice a day 1 tablet with meals 12h Apr, 90 days Active Fish Oil 1000 MG Orally Once a day 2 capsules 24h Jan, Active Januvia 50 mg Orally Once a day 1 tablets 24h Apr, 9 0 days Active RESULTS Name Result Date Reference Range A1C (IN HOUSE) 2017-09-02 A1C IN HOUSE 10.9 4.3 - 5.6 % Previous A1c 11.3 Lot [id number] Exp date 08/2019 PROCEDURES Procedure Date Ordered Result Body Site GLYCATED HEMOGLOBIN TEST September 02, 2017 INSTRUCTIONS MEDICATIONS ADMINISTERED No Known Medications [...]
--- OUTSIDE RECORDS SUMMARY | 2019-11-08 17:51 | XMS REPORT ---
Author Author Jennifer Lazo Doctor Organization [facility] Address Unknown Phone Unavailable Care Team Providers Care Operation Specialist Name Role Phone Migration, Doctor Unavailable Unavailable PROBLEMS Type Condition ICD9-CM Code SUI28-XI Code Onset Dates Condition S tatus SNOMED Code Problem Diabetes type 2, uncontrolled E11.65 Active 660777638 Problem Type 2 diabetes mellitus wit h hyperglycemia, without long-term current use of insulin E11.65 Active 81172135 Problem Pure hypercholesterolemia E78.0 Acti ve 379381772 Problem Anhedonia R45.84 Active 34317949 Problem Anxiety F41.9 Active 74452760 Problem Morbid obesity, unspecified obesity type E66.01 Active 501856687 Problem Uncontrolled type 2 diabetes mellitus without complication, without long-term current use of insulin E11.65 Active 045458057 Problem Moderate single current episode of major depressive disord er F32.1 Active 70009057 Problem Current severe episode of ma 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 without prior episode F32.2 Active 24501651 Problem Difficulty sleeping G47.9 Active 862097692 Problem Chronic GERD K21.9 Active 9178925 09 Problem Mixed hyperlipidemia E78.2 Active 511967196 Problem Irritability R45.4 Active 2008744 7 Problem Other obesity due to excess calories E66.09 Active 148727743 Problem Body mass index (BMI) of 45.0-49.9 in adult Z68.42 Active 940290231 Problem Pure hypercholesterolemia, unspecified E78.00 Active 920296925 ALLERGIES No Information ENCOUNTERS Encounter Location Date Diagnosis [facility] [address] [facility] [id number] [place] [id number] Apr, [facility] [address] [id number] [place] [id number] Mar, Chronic GERD K21.9 and Diarrhea R19.7 [facility] [address] [id number] [place] [id number] Mar, BMI 45.0-49.9, adult Z68.42 and Viral sy ndrome B34.9 [facility] [address] [facility] [id number] [place] [id number] Feb, URI, acute J06.9 and BMI 45.0-49.9, adul t Z68.42 [facility] [address] [facility] [id number] [id number] Oct, Dental examination Z01.20 [facility] [address] [facility] [id number][place] [id number] Oct, Dental examination Z01.20 [facility] [address] [facility] [id number] [place] [id number] August, BMI 45.0-49.9, adult Z68.42 ; Diabetes t ype 2, uncontrolled E11.65 and Mixed hyperlipidemia E78.2 [facility] [address] [facility] [id number][place] [id number] August, Dental examination Z01.20 [facility] [place] [address] [facility] [id number] [address] [place] [phone] Jul, Current severe episode of ma 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 without prior episode F32.[address] [id number] [place] [id number] Jun, Mixed hyperlipidemia E78.2 ; Diabetes ty pe 2, uncontrolled E11.65 ; BMI 45.0- 49.9, adult Z68.42 ; Stressful life event affecting family Z63.79 ; BCP ( control pills) initiation Z30.011 and Anxiety F41.[address] [id number] [place] [id number] May, Diabetes type 2, uncontrolled E11.65 ; M ixed hyperlipidemia E78.2 ; Current severe episode of major depressive disorder without psychotic features without prior episode F32.2 ; Vaginal discharge N89.8 ; Vision changes H53.9 and BMI 45.0-49.9, adult Z68.[address] [id number] [place] [id number] May, Type 2 diabetes mellitus with hyperglyce mere, without long-term current use of insulin E11.65 and Mixed hyperlipidemia E78.2 [place] [id number] [id number] May, Type 2 diabetes mellitus with hyperglyce mere, without long-term current use of insulin E11.65 [facility] [address] [facility] [id number], [place] [id number] May, Dental examination Z01.20 [facility] [address] [facility] [id number][place] [id number] 14 May, 2017 Dental examination Z01.20 [facility] [address] [facility] [id number] [place] [id number] Apr, Dental examination Z01.20 [place] [id number] [id number] 12 Jan, 2017 Mixed hyperlipidemia E78.2 and Pure hype rcholesterolemia, unspecified E78.[address] [id number] 10 Jan, 2017 Mid-back pain, acute M54.9 [...] adult Z68.42 and BMI 45.0-49.9, adult Z68.42 [facility] [address] [place] [id number] [place] [id number] 26 Dec, 2016 Diabetes type 2, uncontrolled E11.65 ; M orbid obesity, unspecified obesity type E66.01 ; Mixed hyperlipidemia E78.2 ; Moderate single current episode of major depressive disorder F32.1 ; Irritability R45.4 ; Dysuria R30.0 and BCP ( control pills) initiation Z30.011 [facility] [address] [facility] [id number] [address] [place] [id number] Nov, Dental examination Z01.20 [facility] [place] [address] [facility] [id number] [place] [id number] Nov, Right wrist pain M25.531 [facility] [place] [address] [facility] [id number] [place] [id number] Jul, BCP ( control pills) initiation Z30 .011 [facility] [place] [id number] [place] [id number] Jun, Left otitis media, unspecified chronicit y, unspecified otitis media type H66.92 ; Morbid obesity, unspecified obesity type E66.01 ; Neck pain on left side M54.2 and Uncontrolled type 2 diabetes mellitus without complication, without long- term current use of insulin E11.65 [facility] [place] [id number] [place] [id number] Apr, Anxiety F41.9 ; Anhedonia R45.84 ; Diffi culty sleeping G47.9 ; Type 2 diabetes mellitus with hyperglycemia, without long-term current use of insulin E11.65 ; control counseling Z30.9 ; BCP ( control pills) initiation Z30.011 and Mixed hyperlipidemia E78.2 [facility] [place] [id number] [place] [address], [place] [id number] Oct, Diabetes type 2, uncontrolled E11.65 and Pure hypercholesterolemia E78.0 [facility] [place] [address] [place] [id number] [address] [place] [address] August, [facility] [place] [id number] [place] [id number] Jun, Diabetes type 2, uncontrolled E11.65 and Pure hypercholesterolemia E78.0 [facility] [place] [address] [place] [id number] [place] [id number] Jun, Diabetes type 2, uncontrolled E11.65 [facility] [place] [address] [place] [id number] [address] [place] [phone] Mar, [facility] [place] [address] [place] [id number] [place] [id number] Mar, [place] [id number] [id number] Mar, Diabetes type 2, uncontrolled E11.65 [facility] [place] M [address] [id number] [place] [id number] Mar, [facility] [address] [id number] [place] [id number] August, Abdominal pain 789.00 and Frequency of u rination 788.41 [facility] [address] [id number] [address] [place] [address], [place] [address] Jul, [facility] [address] [id number] [address] [place] [phone] Jul, [facility] [facility] [address] [id number] [place] [id number] Feb, [facility] [address] [facility] [id number] [address] [place] [phone] Feb, [facility] [place] [address] [id number] [place] [id number] Feb, [facility] [address] [facility] [id number] [address] [place] [phone] Feb, [facility] [address] [facility] [id number] [address] [place] [phone] Feb, [facility] [address] [facility] [id number] [address] [place] [phone] Feb, [facility] [place] [address] [id number] [place] [id number] Feb, [facility] [address] [id number] [address] [place] [phone] Feb, [facility] M [address] [id number] [place] [id number] Jan, [facility] [address] [facility] [id number] [address] [place] [phone] Jan, [facility] [place] [address] [id number] [place] [id number] Sep, [facility] [address] [id number] [address] [place] [address], [place] [address] Sep, [facility] M [address] [id number] [place] [id number] August, [facility] [address] [id number] [address] [place] [address], [place] [address] August, [facility] [address] [id number] [address] [place] [address], [place] [address] Jul, [facility] A[place] M [address] [id number] [place] [id number] Jul, [facility] A[place] M [address] [id number] [place] [id number] Jul, [facility] [place] [address] [id number] [place] [id number] Jul, [facility] [address] [id number] [address] [place] [address], [place] [address] Jul, [facility] [address] [id number] [address] [place] [address], [place] [address] Jul, [facility] M [address] [id number] [place] [id number] Jun, [facility] [address] [id number] [address] [place] [address], [place] [address] Jun, [facility] [place] [facility] [address] [id number] [place] [id number] May, [facility] [address] [id number] [address] [place] [address], [place] [address] May, [facility] M [address] [id number] [place], [place] [id number] Apr, [facility] [address] [id number] [address] [place] [address], [place] [address] Apr, [facility] [address] [id number] [address] [place] [address], [place] [address] Apr, [facility] M [address] [id number] [place] [id number] Apr, [facility] [place] [address] [facility] [id number] [address] [place] [phone] Apr, [facility] [address] [id number] [place] [id number] Jan, [facility] [place] [address] [facility] [id number] [address] [place] [phone] Jan, [facility] [address] [id number] [place] [id number] Jan, [facility] [address] [id number] [place] [id number] Dec, [facility] [address] [id number] [place] [id number] Nov, [facility] [place] [address] [facility] [id number] [address] [place] [phone] Nov, [facility] [place] [address] [facility] [id number] [address] [place] [phone] Nov, [facility] [address] [facility] [id number] [place] [id number] Nov, [facility] [place] [address] [facility] [id number] [address] [place] [phone] Nov, [facility] [place] [address] [facility] [id number] [address] [place] [phone] Nov, [facility] [address] [facility] [id number] [place] [id number] Nov, IMMUNIZATIONS No Known Immunizations SOCIAL HISTORY Never Assessed REASON FOR VISIT EMR-[facility] PLAN OF CARE VITAL SIGNS MEDICATIONS Medication Instructions Dosage Frequency Start Date End Date Duration S tatus metformin 1,000 mg take 1 tablet by Oral route 2 times per day with meals May, Active HydrOXYzine HCl 50 mg 1 Tablet by Oral route 3 t imes per day PRN for anxiety May, Active Flonase 50 mcg/actuation 1 sprays by Clement al route 2 times per day in each nostril Jul, Active Zoloft 100 mg 1.5 tablet by Oral route 1 time per day Take at HS Jun, Active Ortho-Cyclen (28) 0.25-35 mg-mcg take 1 tablet by Oral route 1 time per day Feb, Active Simvastatin 40 mg Take 1 tablet by Oral route 1 time per day August, Active Spironolactone 25 mg 1 tablet by Oral route 1 time per day May, Active Diflucan 200 mg take 1 tablet by Oral route once 1 ti me per day Feb, Active Flagyl 500 mg Take 1 tablet by Oral route 2 times per day for 7 days Feb, Active RESULTS No Results PROCEDURES No Known procedures [...] at work, hyp ertension, was seen at [facility] 04/09/16
--- OUTSIDE RECORDS SUMMARY | 2019-11-08 17:51 | XMS REPORT ---
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 Active 38144480 Problem Pure hypercholesterolemia, unspecified E78.00 Active 719109858 Problem Irritability R45.4 Active 4298478 7 Problem Moderate single current episode of major depressive disord er F32.1 Active 42626859 Problem Body mass index (BMI) of 45.0-49.9 in adult Z68.42 Active 312266685 Problem Other obesity due to excess calories E66.09 Active 636528849 Problem Type 2 diabetes mellitus wit h hyperglycemia, without long-term current use of insulin E11.65 Active 29577255 Problem Anxiety F41.9 Active 07796117 Problem Diabetes type 2, uncontrolled E11.65 Active 205218224 Problem Anhedonia R45.84 Active 20685205 Problem Pure hypercholesterolemia E78.0 Acti ve 066601736 Problem Mixed hyperlipidemia E78.2 Active 006036179 ALLERGIES No Known Allergies ENCOUNTERS Encounter Location Date Diagnosis [facility] [address] [id number] [id number] Oct, Dental examination Z01.20 [facility] [address] [facility] [id number] [id number] 02 Oct, 2018 Dental examination Z01.20 [facility] [address] [facility] [id number] [place] [id number] August, BMI 45.0-49.9, adult Z68.42 ; Diabetes t ype 2, uncontrolled E11.65 and Mixed hyperlipidemia E78.2 [facility] [address] [facility] [id number] [id number] August, Dental examination Z01.20 [facility] [address] [facility] [id number] [place] [address] Jul, Current severe episode of ma 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 without prior episode F32.2 [facility] [address] [facility] [id number] [place] [id number] Jun, Mixed hyperlipidemia E78.2 ; Diabetes ty pe 2, uncontrolled E11.65 ; BMI 45.0- 49.9, adult Z68.42 ; Stressful life event affecting family Z63.79 ; BCP ( control pills) initiation Z30.[address] [facility] [address] [id number] May, Diabetes type 2, uncontrolled E11.65 ; M ixed hyperlipidemia E78.2 ; Current severe episode of major depressive disorder without psychotic features without prior episode F32.2 ; Vaginal discharge N89.8 ; Vision changes H53.9 and BMI 45.0-49.9, adult Z68.42 [facility] [address] [facility] [id number] [place] [id number] May, Type 2 diabetes mellitus with hyperglyce mere, without long-term current use of insulin E11.65 and Mixed hyperlipidemia E78.2 [facility] [address] [facility] [id number] [place] [id number] May, Type 2 diabetes mellitus with hyperglyce mere, without long-term current use of insulin E11.65 [facility] [address] [facility] [id number][place] [id number] May, Dental examination Z01.20 [facility] [address] [facility] [id number][place] [id number] May, Dental examination Z01.20 [place] [address] [id number] [place] [id number] Apr, Dental examination Z01.20 [facility] [id number] [place] [id number] Jan, Mixed hyperlipidemia E78.2 and Pure hype rcholesterolemia, unspecified E78.00 [facility] [address] [facility] [id number] [place] [id number] Jan, Mid-back pain, acute M54.9 ; Anxiety [...] adult Z68.42 and BMI 45.0-49.9, adult Z68.42 [place] [address] [facility] [id number] [place] [id number] Dec, Diabetes type 2, uncontrolled E11.65 ; M orbid obesity, unspecified obesity type E66.01 ; Mixed hyperlipidemia E78.2 ; Moderate single current episode of major depressive disorder F32.1 ; Irritability R45.4 ; Dysuria R30.0 and BCP ( control pills) initiation Z30.011 [facility] [address] [id number] [address] [place] [id number] Nov, Dental examination Z01.20 [facility] [address] [facility] [id number] [place] [id number] Nov, Right wrist pain M25.531 [place] [address] [facility] [id number] [place] [id number] Jul, BCP ( control pills) initiation Z30 .011 [facility] [address] [facility] [id number] [place] [id number] Jun, Left otitis media, unspecified chronicit y, unspecified otitis media type H66.92 ; Morbid obesity, unspecified obesity type E66.01 ; Neck pain on left side M54.2 and Uncontrolled type 2 diabetes mellitus without complication, without long- term current use of insulin E11.65 [facility] [address] [facility] [id number] [place] [id number] 03 Apr, 2016 Anxiety F41.9 ; Anhedonia R45.84 ; Diffi culty sleeping G47.9 ; Type 2 diabetes mellitus with hyperglycemia, without long-term current use of insulin E11.65 ; control counseling Z30.9 ; BCP ( control pills) initiation Z30.011 and Mixed hyperlipidemia E78.2 [facility] [address] [facility] [id number] [place] [id number] 08 Oct, 2015 Diabetes type 2, uncontrolled E11.65 and Pure hypercholesterolemia E78.0 [place] [address] [address] August, [facility] [address] [place] [id number] [place] [id number] Jun, Diabetes type 2, uncontrolled E11.65 and Pure hypercholesterolemia E78.0 [facility] [address] [facility] [id number] [place] [id number] Jun, Diabetes type 2, uncontrolled E11.65 [place] [address] [address] Mar, [facility] [address] [id number] [place] [id number] Mar, [facility] [address] [place] [id number] [place] [id number] Mar, Diabetes type 2, uncontrolled E11.65 [facility] [address] [facility] [id number] [place] [id number] Mar, [facility] [id number] [place] [id number] August, Abdominal pain 789.00 and Frequency of u rination 788.41 [facility] [address] [address] Jul, [facility] [address] [address] Jul, [facility] [address] [id number] [place] [id number] Feb, [facility] [address] [id number] [address] [place] [address] Feb, [facility] [facility] [address] [id number] [place] [id number] Feb, [facility] [address] [id number] [address] [place] [address] Feb, [facility] [address] [id number] [address] [place] [address], [place] [address] Feb, [facility] [address] [id number] [address] [place] [address] Feb, [facility] [address] [id number] [place] [id number] Feb, [facility] [address] [id number] [address] [place] [address] Feb, [facility] [address] [id number] [place] [id number] Jan, [facility] [address] [id number] [address] [place] [address] Jan, [facility] M [address] [id number] [place] [id number] Sep, [facility] [address] [id number] [address] [place] [address], [place] [address] Sep, [facility] [address] [id number] [place] [id number] August, [facility] [address] [id number] [address] [place] [address], [place] [address] August, [facility] [address] [id number] [address] [place] [address], [place] [address] Jul, [facility] M [address] [id number] [place] [id number] Jul, [facility] M [address] [id number] [place] [id number] Jul, [facility] [address] [id number] [place] [id number] Jul, [facility] [address] [id number] [address] [place] [address], [place] [address] Jul, [facility] [address] [id number] [address] [place] [address], [place] [address] Jul, [facility] [facility] [address] [id number] [place] [id number] Jun, [facility] [address] [id number] [address] [place] [address], [place] [address] Jun, [facility] [facility] [address] [id number] [place] [id number] May, [facility] [address] [id number] [address] [place] [phone] May, [facility] [facility] [address] [id number] [place] [id number] Apr, [facility] [address] [id number] [address] [place] [id number] Apr, [facility] [address] [id number] [address] [place] [phone] Apr, [facility] [address] [id number] [place] [id number] Apr, [facility] [address] [id number] [address] [place] [address], [place] [address] Apr, [facility] [address] [id number] [place] [id number] Jan, [facility] [address] [id number] [address] [place] [address], [place] [address] Jan, [facility] [address] [id number] [place] [id number] Jan, [facility] M [address] [id number] [place] [id number] Dec, [facility] [address] [facility] [id number] [place] [id number] Nov, [facility] [address] [facility] [id number] [address] [place] [phone] Nov, [facility] [address] [facility] [id number] [address] [place] [address] Nov, [facility] [address] [facility] [id number] [place] [id number] Nov, [facility] [address] [facility] [id number] [address] [place] [address] Nov, [facility] [address] [facility] [id number] [address] [place] [phone] Nov, [facility] [address] [facility] [id number] [place] [id number] Nov, IMMUNIZATIONS No Known Immunizations SOCIAL HISTORY Never Assessed REASON FOR VISIT [facility] PLAN OF CARE Activity Details Follow Up nilda Reason:[facility] #30 VITAL SIGNS Height 64 in 2017-10-09 Blood pressure systolic 130 mmHg 2017-10-09 Blood pressure diastolic 84 mmHg 2017-10-09 MEDICATIONS Medication Instructions Dosage Frequency Start Date End Date Duration S tatus Januvia 50 mg Orally Once a day 1 tablets 24h Apr, 9 0 days Active Glucophage 1000 MG Orally Twice a day 1 tablet with meals 12h Apr, 90 days Active Fish Oil 1000 MG Orally Once a day 2 capsules 24h Jan, Active Simvastatin 40 mg Orally Once a day 1 tablet in the evening 24h August, 90 days Active RESULTS No Results PROCEDURES Procedure Date Ordered Result Body Site RESIN COMPOS - 1 SURFACE POSTERIOR October 09, 2017 PULP CAP - INDIRECT October 10, 2017 INSTRUCTIONS MEDICATIONS ADMINISTERED No Known Medications [...] work, hyp ertension, was seen at [facility] 04/09/16
--- OUTSIDE RECORDS SUMMARY | 2019-11-08 17:51 | XMS REPORT ---
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 without prior episode F32.2 Active 31725595 Problem Pure hypercholesterolemia, unspecified E78.00 Active 351774118 Problem Irritability R45.4 Active 7662282 7 Problem Moderate single current episode of major depressive disord er F32.1 Active 22587488 Problem Body mass index (BMI) of 45.0-49.9 in adult Z68.42 Active 122438737 Problem Other obesity due to excess calories E66.09 Active 838324379 Problem Type 2 diabetes mellitus wit h hyperglycemia, without long-term current use of insulin E11.65 Active 07255004 Problem Anxiety F41.9 Active 15895719 Problem Diabetes type 2, uncontrolled E11.65 Active 464711265 Problem Anhedonia R45.84 Active 24109912 Problem Pure hypercholesterolemia E78.0 Acti ve 208242966 Problem Mixed hyperlipidemia E78.2 Active 417310289 ALLERGIES No Known Allergies ENCOUNTERS Encounter Location Date Diagnosis [facility] [address] [facility] [address] [id number] [id number] Oct, Dental examination Z01.20 [facility] [address] [facility] [id number][place] [id number] 02 Oct, 2018 Dental examination Z01.20 [facility] [address] [facility] [id number] [place] [id number] August, BMI 45.0-49.9, adult Z68.42 ; Diabetes t ype 2, uncontrolled E11.65 and Mixed hyperlipidemia E78.2 [facility] [address] [facility] [id number] [place] [id number] August, Dental examination Z01.20 [facility] [address] [facility] [id number] [address] [place] [address] Jul, Current severe episode of ma 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 without prior episode F32.2 [facility] [address] [facility] [id number] [place] [id number] Jun, Mixed hyperlipidemia E78.2 ; Diabetes ty pe 2, uncontrolled E11.65 ; BMI 45.0- 49.9, adult Z68.42 ; Stressful life event affecting family Z63.79 ; BCP ( control pills) initiation Z30.011 and Anxiety F41.9 [facility] 120 [facility] [id number] [place] [id number] May, Diabetes type 2, uncontrolled E11.65 ; M ixed hyperlipidemia E78.2 ; Current severe episode of major depressive disorder without psychotic features without prior episode F32.2 ; Vaginal discharge N89.8 ; Vision changes H53.9 and BMI 45.0-49.9, adult Z68.42 [facility] 120 [facility] [id number] [place] [id number] May, Type 2 diabetes mellitus with hyperglyce mere, without long-term current use of insulin E11.65 and Mixed hyperlipidemia E78.2 [facility] [address] [facility] [id number] [place] [id number] May, Type 2 diabetes mellitus with hyperglyce mere, without long-term current use of insulin E11.65 [facility] [address] [facility] [id number] [place] [id number] May, Dental examination Z01.20 [facility] [address] [facility] [id number] [place] [id number] May, Dental examination Z01.20 [place] [address] [facility] [address] [id number] [place] [id number] Apr, Dental examination Z01.20 [facility] [address] [facility] [id number] [place] [id number] Jan, Mixed hyperlipidemia E78.2 and Pure hype rcholesterolemia, unspecified E78.00 [facility] [address] [facility] [id number] [place] [id number] Jan, Mid-back pain, acute M54.9 ; Anxiety [...] adult Z68.42 and BMI 45.0-49.9, adult Z68.42 [place] [address] [address] [facility] [id number] [place] [id number] Dec, Diabetes type 2, uncontrolled E11.65 ; M orbid obesity, unspecified obesity type E66.01 ; Mixed hyperlipidemia E78.2 ; Moderate single current episode of major depressive disorder F32.1 ; Irritability R45.4 ; Dysuria R30.0 and BCP ( control pills) initiation Z30.011 [facility] [address] [id number] [address] [place] [address] [id number] Nov, Dental examination Z01.20 [facility] [address] [facility] [id number] [place] [id number] Nov, Right wrist pain M25.531 [facility] [address] [facility] [id number] [place] [id number] Jul, BCP ( control pills) initiation Z30 .011 [facility] [address] [facility] [id number] [place] [id number] Jun, Left otitis media, unspecified chronicit y, unspecified otitis media type H66.92 ; Morbid obesity, unspecified obesity type E66.01 ; Neck pain on left side M54.2 and Uncontrolled type 2 diabetes mellitus without complication, without long- term current use of insulin E11.65 [facility] [address] [facility] [id number] [place] [id number] 03 Apr, 2016 Anxiety F41.9 ; Anhedonia R45.84 ; Diffi culty sleeping G47.9 ; Type 2 diabetes mellitus with hyperglycemia, without long-term current use of insulin E11.65 ; control counseling Z30.9 ; BCP ( control pills) initiation Z30.011 and Mixed hyperlipidemia E78.2 [facility] [place] [address] [facility] [id number] [place] [id number] 08 Oct, 2015 Diabetes type 2, uncontrolled E11.65 and Pure hypercholesterolemia E78.0 [place] [address] [address] August, [facility] [place] [address] [place] [id number] [place] [id number] Jun, Diabetes type 2, uncontrolled E11.65 and Pure hypercholesterolemia E78.0 [facility] [place] [address] [facility] [id number] [place] [id number] Jun, Diabetes type 2, uncontrolled E11.65 [place] [id number] [address] Mar, [facility] [address] [place] [id number] [place] [id number] Mar, [facility] [place] [address] [place] [id number] [place] [id number] Mar, Diabetes type 2, uncontrolled E11.65 [facility] M [address] [facility] [id number] [place] [id number] Mar, [facility] [place] [address] [facility] [address] [id number] [place] [id number] August, Abdominal pain 789.00 and Frequency of u rination 788.41 [facility] [address] [address] Jul, [facility] [address] [address] Jul, [facility] [place] M [address] [id number] [place] [id number] Feb, [facility] [address] [id number] [address] [place] [phone] Feb, [facility] [place] M [address] [id number] [place] [id number] Feb, [facility] [address] [id number] [address] [place] [phone] Feb, [facility] [address] [id number] [address] [place] [address], [place] [address] Feb, [facility] [address] [id number] [address] [place] [phone] Feb, [facility] [place] M [address] [id number] [place] [id number] Feb, [facility] [address] [id number] [address] [place] [phone] Feb, [facility] [place] [address] [id number] [place] [id number] Jan, [facility] [address] [id number] [address] [place] [phone] Jan, [facility] [place] [address] [id number] [place] [id number] Sep, [facility] [address] [id number] [address] [place] [address], [place] [address] Sep, [facility] [place] M [address] [id number] [place] [id number] August, [facility] [address] [id number] [address] [place] [address], [place] [address] August, [facility] [address] [id number] [address] [place] [address], [place] [address] Jul, [facility] [place] M [address] [id number] [place] [id number] Jul, [facility] [place] M [address] [id number] [place] [id number] Jul, [facility] [place] M [address] [id number] [place] [id number] Jul, [facility] [address] [id number] [address] [place] [address], [place] [address] Jul, [facility] [address] [id number] [address] [place] [address], [place] [address] Jul, [facility] [place] M [address] [id number] [place] [id number] Jun, [facility] [address] [id number] [address] [place] [address], [place] [address] Jun, [facility] [place] M [address] [id number] [place] [id number] May, [facility] [address] [id number] [address] [place] [address], [place] [address] May, [facility] [place] [address] [id number] [place] [id number] Apr, [facility] [address] [id number] [address] [place] [phone] Apr, [facility] [address] [facility] [id number] [address] [place] [phone] Apr, [facility] [place] M [address] [id number] [place] [id number] Apr, [facility] [address] [id number] [address] [place] [address], [place] [address] Apr, [facility] [place] M [address] [id number] [place] [id number] Jan, [facility] [address] [id number] [address] [place] [address], [place] [address] Jan, [facility] [place] M [address] [id number] [place] [id number] Jan, [facility] [place] M [address] [id number] [place] [id number] Dec, [facility] [address] [id number] [place] [id number] Nov, [facility] [address] [id number] [address] [place] [phone] Nov, [facility] [address] [id number] [address] [place] [phone] Nov, [facility] [address] [facility] [id number] [place] [id number] Nov, [facility] [address] [facility] [id number] [address] [place] [phone] Nov, [facility] [address] [facility] [id number] [address] [place] [phone] Nov, [facility] [address] [facility] [id number] [place] [id number] Nov, IMMUNIZATIONS No Known Immunizations SOCIAL HISTORY Never Assessed REASON FOR VISIT Gerry PLAN OF CARE Activity Details Follow Up nilda Reason:srp/laura OR ethan rative 1 hour VITAL SIGNS Height 64 in 2017-05-24 Blood pressure systolic 149 mmHg 2017-05-24 Blood pressure diastolic 79 mmHg 2017-05-24 MEDICATIONS Medication Instructions Dosage Frequency Start Date End Date Duration S tatus Fish Oil 1000 MG Orally Once a day 2 capsules 24h Jan, 0 days Active Simvastatin 40 MG Orally Once a day 1 tablet in the evening 24h Dec, 0 days Active Januvia 50 mg Orally Once a day 1 tablets 24h Apr, Active Ortho-Cyclen (28) 0.25-35 MG-MCG orally daily take 1 tablet by Oral route 1 time per day 24h Feb, Active Amoxicillin 500 mg Orally 3 times a day 1 capsule 8h 10 day(s) Active Glucophage 500 MG Orally Twice a day 2 tablet with meals 12h Apr, Active Diclofenac Active Motrin IB 800 Orally every 6 hrs 1 tablet as needed 6h 5 days Active Augmentin 500-125 MG Orally 3 times a day 1 tablet 8h Active Flexeril Active Abilify 10 mg Orally Once a day at bedtime 1 tablet Dec, Not-Taking Clindamycin HCl 150 MG Orally every 8 hrs 2 capsules 8h 5 day(s) Not-Taking RESULTS No Results PROCEDURES Procedure Date Ordered Result Body Site LTD ORAL EVALUATION - PROBLEM FOCUS May 24, 2017 INTRAORL-PERIAPICAL 1 FILM 18694 May 24, 2017 BITEWINGS - TWO FILMS May 24, 2017 INTRAORL-PERIAPICAL EA ADD FILM May 24, 2017 PANORAMIC FILM SEE ALSO CODE 59205 May 24, 2017 INSTRUCTIONS MEDICATIONS ADMINISTERED No Known Medications [...] at work, hyp ertension, was seen at [facility] 04/09/16
--- OUTSIDE RECORDS SUMMARY | 2019-11-08 17:51 | XMS REPORT ---
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 Active 24298296 Problem Pure hypercholesterolemia, unspecified E78.00 Active 351863471 Problem Irritability R45.4 Active 0747617 7 Problem Moderate single current episode of major depressive disord er F32.1 Active 87296411 Problem Body mass index (BMI) of 45.0-49.9 in adult Z68.42 Active 367210237 Problem Other obesity due to excess calories E66.09 Active 750894160 Problem Type 2 diabetes mellitus wit h hyperglycemia, without long-term current use of insulin E11.65 Active 27114646 Problem Anxiety F41.9 Active 54274881 Problem Diabetes type 2, uncontrolled E11.65 Active 812526494 Problem Anhedonia R45.84 Active 03148332 Problem Pure hypercholesterolemia E78.0 Acti ve 493877362 Problem Mixed hyperlipidemia E78.2 Active 267467753 ALLERGIES No Known Allergies ENCOUNTERS Encounter Location Date Diagnosis [facility] [id number] [place] [id number] Oct, Dental [facility] Z01.20 [facility] [address] [id number] [place] [id number] 02 Oct, 2018 [facility] Z01.20 [facility] [address] [id number], [place] [id number] August, BMI 45.0-49.9, adult Z68.42 ; Diabetes t ype 2, uncontrolled E11.65 and Mixed hyperlipidemia E78.2 [facility] [place] [address] [facility] [address] [id number], [place] [id number] August, Dental examination Z01.20 [facility] [address] [facility] [id number] [address] [place] [address] Jul, Current severe episode of ma 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 without prior episode F32.2 [facility] [place] [address] [facility] [id number] [place] [id number] Jun, Mixed hyperlipidemia E78.2 ; Diabetes ty pe 2, uncontrolled E11.65 ; BMI 45.0- 49.9, adult Z68.42 ; Stressful life event affecting family Z63.79 ; BCP ( control pills) initiation Z30.011 and Anxiety F41.9 [facility] [place] [address] [id number] May, Diabetes type 2, uncontrolled E11.65 ; M ixed hyperlipidemia E78.2 ; Current severe episode of major depressive disorder without psychotic features without prior episode F32.2 ; Vaginal discharge N89.8 ; Vision changes H53.9 and BMI 45.0-49.9, adult Z68.42 [facility] 120 [facility] [id number] [place] [id number] May, Type 2 diabetes mellitus with hyperglyce mere, without long-term current use of insulin E11.65 and Mixed hyperlipidemia E78.2 [facility] [place] 120 [facility] [id number] [place] [id number] May, Type 2 diabetes mellitus with hyperglyce mere, without long-term current use of insulin E11.65 [facility] [place] [address] [facility] [address] [id number], [place] [id number] May, Dental examination Z01.20 [facility] [place] [address] [facility] [address] [id number][place] [id number] May, Dental examination Z01.20 [place] [address] [facility] [address] [id number] [place] [id number] Apr, Dental examination Z01.20 [facility] [id number] [place] [id number] Jan, Mixed hyperlipidemia E78.2 and Pure hype rcholesterolemia, unspecified E78.[address] [id number] [place] [id number] Jan, Mid-back pain, acute M54.9 ; Anxiety [...] adult Z68.42 and BMI 45.0-49.9, adult Z68.[address] [id number] [place] [id number] Dec, Diabetes type 2, uncontrolled E11.65 ; M orbid obesity, unspecified obesity type E66.01 ; Mixed hyperlipidemia E78.2 ; Moderate single current episode of major depressive disorder F32.1 ; Irritability R45.4 ; Dysuria R30.0 and BCP ( control pills) initiation Z30.011 [facility] [address] [id number] [address] [place] [address] [id number] Nov, Dental examination Z01.20 [facility] [address] [facility] [id number] [place] [id number] Nov, Right wrist pain M25.[address] [id number] [place] [id number] Jul, BCP ( control pills) initiation Z30 .011 [facility] [address] [facility] [id number] [place] [id number] Jun, Left otitis media, unspecified chronicit y, unspecified otitis media type H66.92 ; Morbid obesity, unspecified obesity type E66.01 ; Neck pain on left side M54.2 and Uncontrolled type 2 diabetes mellitus without complication, without long- term current use of insulin E11.65 [facility] [place] [address] [id number] [place] [id number] 03 Apr, 2016 Anxiety F41.9 ; Anhedonia R45.84 ; Diffi culty sleeping G47.9 ; Type 2 diabetes mellitus with hyperglycemia, without long-term current use of insulin E11.65 ; control counseling Z30.9 ; BCP ( control pills) initiation Z30.011 and Mixed hyperlipidemia E78.2 [facility] [place] [address] [facility] [id number] [place] [id number] 08 Oct, 2015 Diabetes type 2, uncontrolled E11.65 and Pure hypercholesterolemia E78.0 [place] [address] [address] August, [facility] [place] [address] [facility] [id number] [place] [id number] Jun, Diabetes type 2, uncontrolled E11.65 and Pure hypercholesterolemia E78.0 [facility] [place] [address] [facility] [id number] [place] [id number] Jun, Diabetes type 2, uncontrolled E11.65 [facility] [address] [address] Mar, [facility] [address] [id number] [place] [id number] Mar, [facility] [place] [address] [id number] [place] [id number] Mar, Diabetes type 2, uncontrolled E11.65 [facility] [place] [place] [address] [facility] [id number] [place] [id number] Mar, [facility] [id number] [place] [address] [id number] August, Abdominal pain 789.00 and Frequency of u rination 788.41 [facility] [address] [address] Jul, [facility] [address] [address] Jul, [facility] [place] [address] [id number] [place] [id number] Feb, [facility] [address] [id number] [address] [place] [address], [place] [address] Feb, [facility] [place] [address] [id number] [place] [id number] Feb, [facility] [address] [id number] [address] [place] [address], [place] [address] Feb, [facility] [address] [id number] [address] [place] [address], [place] [address] Feb, [facility] [address] [id number] [address] [place] [phone] Feb, [facility] [place] [address] [id number] [place] [id number] Feb, [facility] [address] [id number] [address] [place] [phone] Feb, [facility] [place] [address] [id number] [place] [id number] Jan, [facility] [address] [id number] [address] [place] [phone] Jan, [facility] [place] [address] [id number] [place] [id number] Sep, [facility] [address] [id number] [address] [place] [address], [place] [address] Sep, [facility] [place] [address] [id number] [place] [id number] August, [facility] [address] [id number] [address] [place] [address], [place] [address] August, [facility] [address] [id number] [address] [place] [address], [place] [address] Jul, [facility] [place] [address] [id number] [place] [id number] Jul, [facility] [place] [address] [id number] [place] [id number] Jul, [facility] [place] [address] [id number] [place] [id number] Jul, [facility] [address] [id number] [address] [place] [address], [place] [address] Jul, [facility] [address] [id number] [address] [place] [address], [place] [address] Jul, [facility] [place] [address] [id number] [place] [id number] Jun, [facility] [address] [id number] [address] [place] [address], [place] [address] Jun, [facility] [place] [address] [id number] [place] [id number] May, [facility] [address] [id number] [address] [place] [address], [place] [address] May, [facility] [place] [address] [id number] [place] [id number] Apr, [facility] [address] [id number] [address] [place] [address], [place] [address] Apr, [facility] [address] [id number] [address] [place] [address], [place] [address] Apr, [facility] [place] [address] [id number] [place] [id number] Apr, [facility] [address] [id number] [address] [place] [address], [place] [address] Apr, [facility] [place] [address] [id number] [place] [id number] Jan, [facility] [address] [id number] [address] [place] [address], [place] [address] Jan, [facility] [place] [address] [id number] [place] [id number] Jan, [facility] [place] [address] [id number] [place] [id number] Dec, [facility] [address] [facility] [id number] [place] [id number] Nov, [facility] [address] [facility] [id number] [address] [place] [phone] Nov, [facility] [address] [facility] [id number] [address] [place] [phone] Nov, [facility] [address] [facility] [id number] [place] [id number] Nov, [facility] [address] [facility] [place] [id number] [address] [place] [phone] Nov, [facility] [address] [facility] [place] [id number] [address] [place] [phone] Nov, [facility] [address] [facility] [id number] [place] [id number] Nov, IMMUNIZATIONS No Known Immunizations SOCIAL HISTORY Never Assessed REASON FOR VISIT intake PLAN OF CARE Activity Details Follow Up 2 Weeks Reason: VITAL SIGNS MEDICATIONS Medication Instructions Dosage Frequency Start Date End Date Duration S tat Glucophage 1000 MG Orally Twice a day 1 tablet with meals 12h Apr Active Simvastatin 20 mg Orally Once a day 2 tablet in the evening 24h Dec, 0 days Active Fish Oil 1000 MG Orally Once a day 2 capsules 24h Jan, Active Januvia 50 mg Orally Once a day 1 tablets 24h Apr, Active RESULTS No Results PROCEDURES Procedure Date Ordered Result Body Site Psych diagnostic evaluation, established patient July 10, 2017 INSTRUCTIONS MEDICATIONS ADMINISTERED No Known [...] at work, hyp ertension, was seen at [facility] 04/09/16
--- OUTSIDE RECORDS SUMMARY | 2019-11-08 17:51 | XMS REPORT ---
Author Author Jennifer SIGALA Organization 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 without prior episode F32.2 Active 57669588 Problem Pure hypercholesterolemia, unspecified E78.00 Active 494077002 Problem Irritability R45.4 Active 3669738 7 Problem Moderate single current episode of major depressive disord er F32.1 Active 70397027 Problem Body mass index (BMI) of 45.0-49.9 in adult Z68.42 Active 228554188 Problem Other obesity due to excess calories E66.09 Active 482925392 Problem Type 2 diabetes mellitus wit h hyperglycemia, without long-term current use of insulin E11.65 Active 43433953 Problem Anxiety F41.9 Active 90619211 Problem Diabetes type 2, uncontrolled E11.65 Active 441722964 Problem Anhedonia R45.84 Active 62361320 Problem Pure hypercholesterolemia E78.0 Acti ve 851045865 Problem Mixed hyperlipidemia E78.2 Active 562164467 ALLERGIES No Known Allergies ENCOUNTERS Encounter Location Date Diagnosis [facility] [address] [id number] [facility] S [id number] 30 Feb, 2018 URI, acute J06.9 and BMI 45.0-49.9, adul t Z68.42 [facility] [address] [id number] [place] [id number] 02 Oct, 2017 [facility] [address] [id number] [id number] Oct, Dental examination Z01.20 [facility] [place] [address] [id number][place] [id number] August, BMI 45.0-49.9, adult Z68.42 ; Diabetes t ype 2, uncontrolled E11.65 and Mixed hyperlipidemia E78.2 [facility] [place] [address] [id number][place] [id number] August, [facility]01.20 [facility] [address] [facility] [id number] 100KS [place] [address] Jul, Current severe episode of ma 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 without prior episode F32.2 [facility] [place] [address] [facility] [id number] [place] [id number] Jun, Mixed hyperlipidemia E78.2 ; Diabetes ty pe 2, uncontrolled E11.65 ; BMI 45.0- 49.9, adult Z68.42 ; Stressful life event affecting family Z63.79 ; BCP ( control pills) initiation Z30.011 and Anxiety F41.[address] [facility] [address] [id number] [place] [id number] May, Diabetes type 2, uncontrolled E11.65 ; M ixed hyperlipidemia E78.2 ; Current severe episode of major depressive disorder without psychotic features without prior episode F32.2 ; Vaginal discharge N89.8 ; Vision changes H53.9 and BMI 45.0-49.9, adult Z68.42 [facility] [place] [address] [facility] [id number] [place] [id number] May, Type 2 diabetes mellitus with hyperglyce mere, without long-term current use of insulin E11.65 and Mixed hyperlipidemia E78.2 [facility] [place] [address] [facility] [id number] [place] [id number] May, Type 2 diabetes mellitus with hyperglyce mere, without long-term current use of insulin E11.65 [facility] [place] [address] [id number][place] [id number] May, Dental examination Z01.20 [facility] [address] [id number][place] [id number] May, Dental examination Z01.20 [facility] [address] [id number][place] [id number] Apr, Dental examination Z01.20 [facility] [place] [address] [id number] [place] [id number] Jan, Mixed hyperlipidemia E78.2 and Pure hype rcholesterolemia, unspecified E78.00 [facility] [place] [address] [id number] [place] [id number] Jan, Mid-back pain, acute M54.9 ; Anxiety [...] adult Z68.42 and BMI 45.0-49.9, adult Z68.42 [facility] [address] [id number] [place] [id number] Dec, Diabetes type 2, uncontrolled E11.65 ; M orbid obesity, unspecified obesity type E66.01 ; Mixed hyperlipidemia E78.2 ; Moderate single current episode of major depressive disorder F32.1 ; Irritability R45.4 ; Dysuria R30.0 and BCP ( control pills) initiation Z30.011 [facility] [address] [id number] [place] [id number] Nov, Dental examination Z01.20 [facility] [place] [address] [id number] [place] [id number] Nov, Right wrist pain M25.531 [facility] [place] [address] [id number] [place] [id number] Jul, BCP ( control pills) initiation Z30 .011 [facility] [address] [id number] [place] [id number] Jun, Left otitis media, unspecified chronicit y, unspecified otitis media type H66.92 ; Morbid obesity, unspecified obesity type E66.01 ; Neck pain on left side M54.2 and Uncontrolled type 2 diabetes mellitus without complication, without long- term current use of insulin E11.65 [facility] [address] [id number] [place] [id number] Apr, Anxiety F41.9 ; Anhedonia R45.84 ; Diffi culty sleeping G47.9 ; Type 2 diabetes mellitus with hyperglycemia, without long-term current use of insulin E11.65 ; control counseling Z30.9 ; BCP ( control pills) initiation Z30.011 and Mixed hyperlipidemia E78.2 [facility] [address] [id number] [place] [id number] Oct, Diabetes type 2, uncontrolled E11.65 and Pure hypercholesterolemia E78.0 [facility] [place] [address] [id number] [place] [address] August, [facility] [place] [id number] [place] [id number] Jun, Diabetes type 2, uncontrolled E11.65 and Pure hypercholesterolemia E78.0 [facility] [id number] [place] [id number] Jun, Diabetes type 2, uncontrolled E11.65 [facility] [place] [address] [id number] [address] [place] [address] Mar, [facility] [place] [id number] [place] [id number] Mar, [facility] [place] [address] [id number] [place] [id number] Mar, Diabetes type 2, uncontrolled E11.65 [facility] [address] [id number] [place] [id number] Mar, [facility] [address] [id number][place] [id number] August, Abdominal pain 789.00 and Frequency of u rination 788.41 [facility] [address] [id number] [facility] [place] [address] Jul, [facility] [address] [id number] [address] [place] [address], [place] [address] Jul, [facility] [address] [id number] [place] [id number] Feb, [facility] [address] [id number] [address] [place] [address], [place] [address] Feb, [facility] [address] [id number] [place] [id number] Feb, [facility] [address] [id number] [address] [place] [address], [place] [address] Feb, [facility] [address] [id number] [address] [place] [address], [place] [address] Feb, [facility] [address] [id number] [address] [place] [address], [place] [address] Feb, [facility] M [address] [id number] [place] [id number] Feb, [facility] [address] [id number] [address] [place] [address], [place] [address] Feb, [facility] M [address] [id number] [place] [id number] Jan, [facility] [address] [id number] [address] [place] [address], [place] [address] Jan, [facility] [address] [id number] [place] [id number] Sep, [facility] [address] [id number] [address] [place] [address], [place] [address] Sep, [facility] [address] [id number] [place] [id number] August, [facility] [address] [id number] [address] [place] [address], [place] [address] August, [facility] [address] [id number] [facility] [place] [address] Jul, [facility] M [address] [id number] [place] [id number] Jul, [facility] [address] [id number] [place] [id number] Jul, [facility] [address] [id number] [place] [id number] Jul, [facility] [address] [id number] [address] [place] [address], [place] [address] Jul, [facility] [address] [id number] [address] [place] [address], [place] [address] Jul, [facility] [address] [id number] [place] [id number] Jun, [facility] [address] [facility] [id number] [address] [place] [address], [place] [address] Jun, [facility] [address] [id number] [place] [id number] May, [facility] [address] [id number] [address] [place] [address], [place] [address] May, [facility] [address] [id number] [place] [id number] Apr, [facility] [address] [facility] [id number] [address] [place] [address], [place] [address] Apr, [facility] [address] [id number] [address] [place] [address], [place] [address] Apr, [facility] [address] [id number] [place] [id number] Apr, [facility] [address] [id number] [address] [place] [address], [place] [address] Apr, [facility] M [address] [id number] [place] [id number] Jan, [facility] [address] [id number] [address] [place] [address], [place] [address] Jan, [facility] M [address] [id number] [place] [id number] Jan, [facility] [address] [id number] [place] [id number] Dec, [facility] [address] [id number] [place] [id number] Nov, [facility] [place] [address] [facility] [id number] [address] [place] [address] Nov, [facility] [place] [address] [facility] [id number] [address] [place] [address] Nov, [facility] [address] [id number] [place] [id number] Nov, [facility] [place] [address] [facility] [id number] [address] [place] [address] Nov, [facility] [place] [address] [facility] [id number] [address] [place] [address] Nov, [facility] [address] [facility] [id number] [place] [id number] Nov, IMMUNIZATIONS No Known Immunizations SOCIAL HISTORY Never Assessed REASON FOR VISIT Fever/cough starting 2 days ago Jessica DICKENS PLAN OF CARE Activity Details Follow Up prn Reason: VITAL SIGNS Height 64 in 2018-03-09 Weight 276 lbs 2018-03-09 Temperature 99.4 degrees Fahrenheit 2018-03-09 Heart Rate 120 bpm 2018-03-09 Respiratory Rate 16 2018-03-09 Oximetry 93 % 2018-03-09 BMI 47.37 kg/m2 2018-03-09 Blood pressure systolic 132 mmHg 2018-03-09 Blood pressure diastolic 72 mmHg 2018-03-09 MEDICATIONS Medication Instructions Dosage Frequency Start Date End Date Duration S tatus Januvia 50 mg Orally Once a day 1 tablets 24h Apr, 9 0 days Active Glucophage 1000 MG Orally Twice a day 1 tablet with meals 12h Apr, 90 days Active Azithromycin 250 MG Orally Once a day 2 tablets on the day, then 1 tablet daily for 4 days 24h Feb, 5 day(s) Active Fish Oil 1000 MG Orally Once a day 2 capsules 24h Jan, Active Simvastatin 40 mg Orally Once a day 1 tablet in the evening 24h August, 90 days Active PredniSONE 20 mg Orally Once a day 1 tablet 24h Feb, 5 days Active RESULTS No Results PROCEDURES No Known [...]
--- OUTSIDE RECORDS SUMMARY | 2019-11-08 17:51 | XMS REPORT ---
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.2 Active 47385703 Problem Pure hypercholesterolemia, unspecified E78.00 Active 439970822 Problem Irritability R45.4 Active 6697268 7 Problem Moderate single current episode of major depressive disord er F32.1 Active 75479150 Problem Body mass index (BMI) of 45.0-49.9 in adult Z68.42 Active 081544029 Problem Other obesity due to excess calories E66.09 Active 914991796 Problem Type 2 diabetes mellitus wit h hyperglycemia, without long-term current use of insulin E11.65 Active 07021006 Problem Anxiety F41.9 Active 01278231 Problem Diabetes type 2, uncontrolled E11.65 Active 256679878 Problem Anhedonia R45.84 Active 03736379 Problem Pure hypercholesterolemia E78.0 Acti ve 776193747 Problem Mixed hyperlipidemia E78.2 Active 366848868 ALLERGIES No Known Allergies ENCOUNTERS Encounter Location Date Diagnosis [facility] [address] [id number] [place] [id number] 02 Oct, 2017 Dental examination Z01.20 [facility] [address] [id number] [place] [id number] 02 Oct, 2018 Dental examination Z01.20 [facility] [address] [id number] [place] [id number] August, BMI 45.0-49.9, adult Z68.42 ; Diabetes t ype 2, uncontrolled E11.65 and Mixed hyperlipidemia E78.2 [facility] [address] [id number] [place] [id number] August, Dental examination Z01.20 [facility] [address] [facility] [id number] [address] [place] [address] Jul, Current severe episode of ma 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 without prior episode F32.2 [facility] [address] [facility] [id number] [place] [id number] Jun, Mixed hyperlipidemia E78.2 ; Diabetes ty pe 2, uncontrolled E11.65 ; BMI 45.0- 49.9, adult Z68.42 ; Stressful life event affecting family Z63.79 ; BCP ( control pills) initiation Z30.011 and Anxiety F41.9 [facility] [address] [place] [id number] [place] [id number] May, Diabetes type 2, uncontrolled E11.65 ; M ixed hyperlipidemia E78.2 ; Current severe episode of major depressive disorder without psychotic features without prior episode F32.2 ; Vaginal discharge N89.8 ; Vision changes H53.9 and BMI 45.0-49.9, adult Z68.42 [facility] [address] [facility] [id number] [place] [id number] May, Type 2 diabetes mellitus with hyperglyce mere, without long-term current use of insulin E11.65 and Mixed hyperlipidemia E78.2 [facility] [address] [facility] [id number] [place] [id number] May, Type 2 diabetes mellitus with hyperglyce mere, without long-term current use of insulin E11.65 [facility] [place] [address] [id number] [place] [id number] May, Dental examination Z01.20 [facility] [address] [id number] [place] [id number] 14 May, 2017 Dental examination Z01.[address] [facility] [address] [id number] [place] [id number] Apr, Dental examination Z01.20 [address]100[facility] [id number] Jan, Mixed hyperlipidemia E78.2 and Pure hype rcholesterolemia, unspecified E78.[address] [id number] [place] [id number] Jan, Mid-back pain, acute M54.9 ; Anxiety [...] adult Z68.42 and BMI 45.0-49.9, adult Z68.42 [address]100[facility] [id number] Dec, Diabetes type 2, uncontrolled E11.65 ; M orbid obesity, unspecified obesity type E66.01 ; Mixed hyperlipidemia E78.2 ; Moderate single current episode of major depressive disorder F32.1 ; Irritability R45.4 ; Dysuria R30.0 and BCP ( control pills) initiation Z30.011 [facility] [address] [id number] [place] [id number] Nov, Dental examination Z01.20 [place] [id number] [id number] Nov, Right wrist pain M25.[address] [id number] [place] [id number] Jul, BCP ( control pills) initiation Z30 .011 [address] [id number] Jun, Left otitis media, unspecified chronicit y, unspecified otitis media type H66.92 ; Morbid obesity, unspecified obesity type E66.01 ; Neck pain on left side M54.2 and Uncontrolled type 2 diabetes mellitus without complication, without long- term current use of insulin E11.65 [facility] [address] [facility] [id number] [place] [id number] 03 Apr, 2016 Anxiety F41.9 ; Anhedonia R45.84 ; Diffi culty sleeping G47.9 ; Type 2 diabetes mellitus with hyperglycemia, without long-term current use of insulin E11.65 ; control counseling Z30.9 ; BCP ( control pills) initiation Z30.011 and Mixed hyperlipidemia E78.2 [facility] [place] [address] [facility] [id number] [place] [id number] 08 Oct, 2015 Diabetes type 2, uncontrolled E11.65 and Pure hypercholesterolemia E78.0 [place] [address] [address] August, [facility] [place] [address] [facility] [id number] [place] [id number] Jun, Diabetes type 2, uncontrolled E11.65 and Pure hypercholesterolemia E78.0 [facility] [place] [address] [facility] [id number] [place] [id number] Jun, Diabetes type 2, uncontrolled E11.65 [facility] [address] [address] Mar, [facility] A[facility] M [address] [facility] [id number] [place] [id number] Mar, [facility] ANA M [address] [facility] [id number] [place] [id number] Mar, Diabetes type 2, uncontrolled E11.65 [facility] A[place] M [address] [facility] [id number] [place] [id number] Mar, [facility] [id number] [place] [id number] August, Abdominal pain 789.00 and Frequency of u rination 788.41 [facility] [address] [address] Jul, [facility] [address] [address] Jul, [facility] A[place] M [address] [id number] [place] [id number] Feb, [facility] [address] [id number] [address] [place] [address], [place] [address] Feb, [facility] ANA M [address] [id number] [place] [id number] Feb, [facility] [address] [id number] [address] [place] [address], [place] [address] Feb, [facility] [address] [id number] [address] [place] [address], [place] [address] Feb, [facility] [address] [id number] [address] [place] [address], [place] [address] Feb, [facility] ANA M [address] [id number] [place] [id number] Feb, [facility] [address] [id number] [address] [place] [address], [place] [address] Feb, [facility] A[place] M [address] [id number] [place] [id number] Jan, [facility] [address] [id number] [address] [place] [address] Jan, [facility] [place] M [address] [id number] [place] [id number] Sep, [facility] [address] [id number] [address] [place] [address], [place] [address] Sep, [facility] A[place] M [address] [id number] [place] [id number] August, [facility] [address] [id number] [address] [place] [address], [place] [address] August, [facility] [address] [id number] [address] [place] [address], [place] [address] Jul, [facility] ANA M [address] [id number] [place] [id number] Jul, [facility] ANA M [address] [id number] [place] [id number] Jul, [facility] A[place] M [address] [id number] [place] [id number] Jul, [facility] [address] [id number] [address] [place] [address], [place] [address] Jul, [facility] [address] [id number] [address] [place] [address], [place] [address] Jul, [facility] ANA M [address] [id number] [place] [id number] Jun, [facility] [address] [id number] [address] [place] [address], [place] [address] Jun, [facility] A[place] M [address] [id number] [place] [id number] May, [facility] [address] [facility] [id number] [address] [place] [address] May, [facility] ANA M [address] [id number] [place] [id number] Apr, [facility] [address] [facility] [id number] [address] [place] [address] Apr, [facility] [address] [facility] [id number] [address] [place] [address], [place] [address] Apr, [facility] ANA M [address] [id number] [place] [id number] Apr, [facility] [address] [id number] [address] [place] [address], [place] [address] Apr, [facility] ANA M [address] [id number] [place] [id number] Jan, [facility] [address] [id number] [address] [place] [address], [place] [address] Jan, [facility] ANA M [address] [id number] [place] [id number] Jan, [facility] ANA M [address] [id number] [place] [id number] Dec, [facility] [address] [facility] [id number] [place] [id number] Nov, [facility] [address] [facility] [id number] [address] [place] [address] Nov, [facility] [address] [facility] [id number] [address] [place] [address] Nov, [facility] [address] [facility] [id number] [place] [id number] Nov, [facility] [address] [facility] [id number] [address] [place] [address] Nov, [facility] [address] [facility] [id number] [address] [place] [address] Nov, [facility] [address] [facility] [id number] [place] [id number] Nov, IMMUNIZATIONS No Known Immunizations SOCIAL HISTORY Never Assessed REASON FOR VISIT re-eval/prophy PLAN OF CARE Activity Details Follow Up [employer]. 3month perio m aintenance Reason: VITAL SIGNS Blood pressure systolic 130 mmHg 2017-10-09 Blood pressure diastolic 84 mmHg 2017-10-09 MEDICATIONS Medication Instructions Dosage Frequency Start Date End Date Duration S sue Glucophage 1000 MG Orally Twice a day 1 tablet with meals 12h Apr, 90 days Active Fish Oil 1000 MG Orally Once a day 2 capsules 24h 12 Jan, 2017 Active Simvastatin 40 mg Orally Once a day 1 tablet in the evening 24h August, 90 days Active Januvia 50 mg Orally Once a day 1 tablets 24h Apr, 9 0 days Active RESULTS No Results PROCEDURES Procedure Date Ordered Result Body Site COMP ORAL EVALUATION - NEW/EST PT October 09, 2017 Periodontal maint procedures October 09, 2017 INSTRUCTIONS MEDICATIONS ADMINISTERED No Known Medications [...]
--- OUTSIDE RECORDS SUMMARY | 2019-11-08 17:52 | XMS REPORT ---
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 without prior episode F32.2 Active 35778408 Problem Pure hypercholesterolemia, unspecified E78.00 Active 210617807 Problem Irritability R45.4 Active 2288539 7 Problem Moderate single current episode of major depressive disord er F32.1 Active 12637268 Problem Body mass index (BMI) of 45.0-49.9 in adult Z68.42 Active 282577007 Problem Other obesity due to excess calories E66.09 Active 206749726 Problem Type 2 diabetes mellitus wit h hyperglycemia, without long-term current use of insulin E11.65 Active 19727742 Problem Anxiety F41.9 Active 80697016 Problem Diabetes type 2, uncontrolled E11.65 Active 595695309 Problem Anhedonia R45.84 Active 74543375 Problem Pure hypercholesterolemia E78.0 Acti ve 951586513 Problem Mixed hyperlipidemia E78.2 Active 684973320 ALLERGIES No Information ENCOUNTERS Encounter Location Date Diagnosis [facility] [address] [id number] [place] [id number] 02 Oct, 2017 Dental examination Z01.20 [facility] [address] [id number] [place] [id number] 02 Oct, 2018 Dental examination Z01.20 [facility] [address] [id number] [place] [id number] August, BMI 45.0-49.9, adult Z68.42 ; Diabetes t ype 2, uncontrolled E11.65 and Mixed hyperlipidemia E78.2 [facility] [address] [facility] [id number] [place] [id number] August, Dental examination Z01.20 [facility] [address] [facility] [id number] [address] [place] [address] Jul, Current severe episode of ma 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 without prior episode F32.2 [facility] [address] [facility] [id number] [place] [id number] Jun, Mixed hyperlipidemia E78.2 ; Diabetes ty pe 2, uncontrolled E11.65 ; BMI 45.0- 49.9, adult Z68.42 ; Stressful life event affecting family Z63.79 ; BCP ( control pills) initiation Z30.011 and Anxiety F41.9 [facility] 120 [facility] [id number] [place] [id number] May, Diabetes type 2, uncontrolled E11.65 ; M ixed hyperlipidemia E78.2 ; Current severe episode of major depressive disorder without psychotic features without prior episode F32.2 ; Vaginal discharge N89.8 ; Vision changes H53.9 and BMI 45.0-49.9, adult Z68.42 [facility] [address] [facility] [id number] [place] [id number] May, Type 2 diabetes mellitus with hyperglyce mere, without long-term current use of insulin E11.65 and Mixed hyperlipidemia E78.2 [facility] [address] [facility] [id number] [place] [id number] May, Type 2 diabetes mellitus with hyperglyce mere, without long-term current use of insulin E11.65 [facility] [address] [facility] [id number] [place] [id number] May, Dental examination Z01.20 [facility] [address] [facility] [facility] [id number] [place] [id number] May, Dental examination Z01.[address] [place] [address] [facility] [id number] [place] [id number] Apr, Dental examination Z01.20 [facility] [id number] [place] [id number] Jan, Mixed hyperlipidemia E78.2 and Pure hype rcholesterolemia, unspecified E78.00 [facility] [address] [facility] [id number] [place] [id number] Jan, Mid-back pain, acute M54.9 ; Anxiety [...] adult Z68.42 and BMI 45.0-49.9, adult Z68.42 [place] [address] [facility] [id number] [place] [id number] Dec, Diabetes type 2, uncontrolled E11.65 ; M orbid obesity, unspecified obesity type E66.01 ; Mixed hyperlipidemia E78.2 ; Moderate single current episode of major depressive disorder F32.1 ; Irritability R45.4 ; Dysuria R30.0 and BCP ( control pills) initiation Z30.011 [facility] [address] [id number] [address] [place] [address] [id number] Nov, Dental examination Z01.20 [facility] [address] [facility] [id number] [place] [id number] Nov, Right wrist pain M25.[address] [id number] [place] [id number] Jul, BCP ( control pills) initiation Z30 .011 [facility] [address] [facility] [id number] [place] [id number] Jun, Left otitis media, unspecified chronicit y, unspecified otitis media type H66.92 ; Morbid obesity, unspecified obesity type E66.01 ; Neck pain on left side M54.2 and Uncontrolled type 2 diabetes mellitus without complication, without long- term current use of insulin E11.65 [facility] [place] M [address] [facility] [id number] [place] [id number] 03 Apr, 2016 Anxiety F41.9 ; Anhedonia R45.84 ; Diffi culty sleeping G47.9 ; Type 2 diabetes mellitus with hyperglycemia, without long-term current use of insulin E11.65 ; control counseling Z30.9 ; BCP ( control pills) initiation Z30.011 and Mixed hyperlipidemia E78.2 [facility] [place] [address] [facility] [id number] [place] [id number] 08 Oct, 2015 Diabetes type 2, uncontrolled E11.65 and Pure hypercholesterolemia E78.0 [facility] [address] [address] August, [facility] [place] [address] [facility] [id number] [place] [id number] Jun, Diabetes type 2, uncontrolled E11.65 and Pure hypercholesterolemia E78.0 [facility] [place] [address] [facility] [id number] [place] [id number] Jun, Diabetes type 2, uncontrolled E11.65 [facility] [address] [address] Mar, [facility] A[facility] M [address] [facility] [id number] [place] [id number] Mar, [facility] [place] M [address] [place] [id number] [place] [id number] Mar, Diabetes type 2, uncontrolled E11.65 [facility] [place] M [address] [facility] [id number] [place] [id number] Mar, [facility] [place] [id number] [facility] [id number] [place] [id number] August, Abdominal pain 789.00 and Frequency of u rination 788.41 [facility] [address] [address] Jul, [facility] [address] [place] [address] Jul, [facility] A[facility] M [address] [id number] [place] [id number] Feb, [facility] [address] [id number] [address] [place] [address] Feb, [facility] M [address] [id number] [place] [id number] Feb, [facility] [address] [id number] [address] [place] [address] Feb, [facility] [address] [id number] [address] [place] [address], [place] [address] Feb, [facility] [address] [id number] [address] [place] [address] Feb, [facility] [place] [address] [id number] [place] [id number] Feb, [facility] [address] [id number] [address] [place] [address] Feb, [facility] [place] [address] [id number] [place] [id number] Jan, [facility] [address] [id number] [address] [place] [address] Jan, [facility] [address] [id number] [place] [id number] Sep, [facility] [address] [id number] [address] [place] [address], [place] [address] Sep, [facility] [place] [address] [id number] [place] [id number] August, [facility] [address] [id number] [address] [place] [address], [place] [address] August, [facility] [address] [id number] [address] [place] [address], [place] [address] Jul, [facility] [facility] [address] [id number] [place] [id number] Jul, [facility] [facility] [address] [id number] [place] [id number] Jul, [facility] [address] [id number] [place] [id number] Jul, [facility] [address] [id number] [address] [place] [address], [place] [address] Jul, [facility] [address] [id number] [address] [place] [address], [place] [address] Jul, [facility] [place] [address] [id number] [place] [id number] Jun, [facility] [address] [id number] [address] [place] [address], [place] [address] Jun, [facility] [place] [address] [id number] [place] [id number] May, [facility] [address] [facility] [id number] [address] [place] [address], [place] [address] May, [facility] [place] [address] [id number] [place] [id number] Apr, [facility] [address] [facility] [id number] [address] [place] [address] Apr, [facility] [address] [facility] [id number] [address] [place] [address] Apr, [facility] [address] [id number] [place] [id number] Apr, [facility] [address] [id number] [address] [place] [address] Apr, [facility] [address] [id number] [place] [id number] Jan, [facility] [address] [id number] [address] [place] [address], [place] [address] Jan, [facility] M [address] [id number] [place] [id number] Jan, [facility] M [address] [id number] [place] [id number] Dec, [facility] [address] [facility] [id number] [place] [id number] Nov, [facility] [address] [facility] [id number] [address] [place] [address] Nov, [facility] [address] [facility] [id number] [address] [place] [address] Nov, [facility] [address] [facility] [id number] [place] [id number] Nov, [facility] [address] [facility] [id number] [address] [place] [id number] Nov, [facility] [address] [facility] [id number] [address] [place] [phone] Nov, [facility] [address] [facility] [id number] [place] [id number] Nov, IMMUNIZATIONS No Known Immunizations SOCIAL HISTORY Never Assessed REASON FOR VISIT lab-CHRISSIE banuelos PLAN OF CARE VITAL SIGNS MEDICATIONS Unknown Medications RESULTS No Results PROCEDURES Procedure Date Ordered Result Body Site ROUTINE VENIPUNCTURE 2017-06-01 N/A LIPID PANEL Jun 01, 2017 COMPLETE CBC W/AUTO DIFF WBC Jun 01, 2017 COMPREHEN METABOLIC PANEL Jun 01, 2017 Hemoglobin Test Send Out 0 dollar Jun 01, 2017 ASSAY THYROID STIM HORMONE Jun 01, 2017 INSTRUCTIONS MEDICATIONS ADMINISTERED No Known Medications [...] at work, hyp ertension, was seen at [facility] 04/09/16
--- OUTSIDE RECORDS SUMMARY | 2019-11-08 17:52 | XMS REPORT ---
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 without prior episode F32.2 Active 44941508 Problem Pure hypercholesterolemia, unspecified E78.00 Active 562393550 Problem Irritability R45.4 Active 4522568 7 Problem Moderate single current episode of major depressive disord er F32.1 Active 23164020 Problem Body mass index (BMI) of 45.0-49.9 in adult Z68.42 Active 728193676 Problem Other obesity due to excess calories E66.09 Active 446347468 Problem Type 2 diabetes mellitus wit h hyperglycemia, without long-term current use of insulin E11.65 Active 85576750 Problem Anxiety F41.9 Active 43101229 Problem Diabetes type 2, uncontrolled E11.65 Active 181477003 Problem Anhedonia R45.84 Active 67439984 Problem Pure hypercholesterolemia E78.0 Acti ve 074889566 Problem Mixed hyperlipidemia E78.2 Active 448025677 ALLERGIES No Known Allergies ENCOUNTERS Encounter Location Date Diagnosis [facility] [address] [id number] [place] [id number] 02 Oct, 2017 Dental examination Z01.20 [facility] [address] [id number] [place] [id number] 02 Oct, 2018 [facility] Z01.20 [facility] [address] [id number] [place] [id number] August, BMI 45.0-49.9, adult Z68.42 ; Diabetes t ype 2, uncontrolled E11.65 and Mixed hyperlipidemia E78.2 [facility] [address] [facility] [id number] [place] [id number] August, Dental examination Z01.20 [facility] [place] [address] [facility] [id number] [address] [place] [address] Jul, Current severe episode of ma 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 without prior episode F32.2 [facility] [address] [facility] [id number] [place] [id number] Jun, Mixed hyperlipidemia E78.2 ; Diabetes ty pe 2, uncontrolled E11.65 ; BMI 45.0- 49.9, adult Z68.42 ; Stressful life event affecting family Z63.79 ; BCP ( control pills) initiation Z30.011 and Anxiety F41.9 [facility] [address] [facility] [id number] [place] [id number] May, Diabetes type 2, uncontrolled E11.65 ; M ixed hyperlipidemia E78.2 ; Current severe episode of major depressive disorder without psychotic features without prior episode F32.2 ; Vaginal discharge N89.8 ; Vision changes H53.9 and BMI 45.0-49.9, adult Z68.42 [facility] [address] [facility] [id number] [place] [id number] May, Type 2 diabetes mellitus with hyperglyce mere, without long-term current use of insulin E11.65 and Mixed hyperlipidemia E78.2 [facility] [address] [facility] [id number] [place] [id number] May, Type 2 diabetes mellitus with hyperglyce mere, without long-term current use of insulin E11.65 [facility] [address] [facility] [id number] [place] [id number] May, Dental examination Z01.20 [facility] [address] [facility] [id number] [place] [id number] May, Dental examination Z01.[address] [place] [id number] [facility] [address] [id number] [place] [id number] Apr, Dental examination Z01.20 [facility] [address] [facility] [id number] [place] [id number] Jan, Mixed hyperlipidemia E78.2 and Pure hype rcholesterolemia, unspecified E78.00 [facility] [address] [facility] [id number] [place] [id number] Jan, Mid-back pain, acute M54.9 ; Anxiety [...] adult Z68.42 and BMI 45.0-49.9, adult Z68.[address] [id number] [place] [id number] Dec, Diabetes type 2, uncontrolled E11.65 ; M orbid obesity, unspecified obesity type E66.01 ; Mixed hyperlipidemia E78.2 ; Moderate single current episode of major depressive disorder F32.1 ; Irritability R45.4 ; Dysuria R30.0 and BCP ( control pills) initiation Z30.011 [facility] [address] [id number] [address] [place] [id number] Nov, Dental examination Z01.20 [facility] [address] [facility] [id number] [place] [id number] Nov, Right wrist pain M25.531 [place] [address] [facility] [id number] [place] [id number] Jul, BCP ( control pills) initiation Z30 .011 [facility] [address] [facility] [id number] [place] [id number] Jun, Left otitis media, unspecified chronicit y, unspecified otitis media type H66.92 ; Morbid obesity, unspecified obesity type E66.01 ; Neck pain on left side M54.2 and Uncontrolled type 2 diabetes mellitus without complication, without long- term current use of insulin E11.65 [facility] [address] [facility] [id number] [place] [id number] 03 Apr, 2016 Anxiety F41.9 ; Anhedonia R45.84 ; Diffi culty sleeping G47.9 ; Type 2 diabetes mellitus with hyperglycemia, without long-term current use of insulin E11.65 ; control counseling Z30.9 ; BCP ( control pills) initiation Z30.011 and Mixed hyperlipidemia E78.2 [facility] [place] [address] [facility] [id number] [place] [id number] 08 Oct, 2015 Diabetes type 2, uncontrolled E11.65 and Pure hypercholesterolemia E78.0 [place] [address] [address] August, [facility] [place] [address] [facility] [id number] [place] [id number] Jun, Diabetes type 2, uncontrolled E11.65 and Pure hypercholesterolemia E78.0 [facility] [place] [address] [facility] [id number] [place] [id number] Jun, Diabetes type 2, uncontrolled E11.65 [place] [address] [address] Mar, [facility] [address] [facility] [id number] [place] [id number] Mar, [facility] [place] [address] [place] [id number] [place] [id number] Mar, Diabetes type 2, uncontrolled E11.65 [facility] ANA M [address] [facility] [id number] [place] [id number] Mar, [facility] [place] [address] [facility] [id number] [place] [id number] August, Abdominal pain 789.00 and Frequency of u rination 788.41 [facility] [place] [address] [address] Jul, [facility] [place] [address] [place] [address] Jul, [facility] M [address] [id number] [place] [id number] Feb, [facility] [address] [id number] [address] [place] [address] Feb, [facility] A[place] M [address] [id number] [place] [id number] Feb, [facility] [address] [id number] [address] [place] [address] Feb, [facility] [address] [id number] [address] [place] [address], [place] [address] Feb, [facility] [address] [id number] [address] [place] [address] Feb, [facility] N[place] M [address] [id number] [place] [id number] Feb, [facility] [address] [id number] [address] [place] [address] Feb, [facility] ANA M [address] [id number] [place] [id number] Jan, [facility] [address] [id number] [address] [place] [id number] Jan, [facility] ANA M [address] [id number] [place] [id number] Sep, [facility] [address] [id number] [address] [place] [address], [place] [address] Sep, [facility] ANA M [address] [id number] [place] [id number] August, [facility] [address] [id number] [address] [place] [address], [place] [address] August, [facility] [address] [id number] [address] [place] [address], [place] [address] Jul, [facility] ANA M [address] [id number] [place] [id number] Jul, [facility] ANA M [address] [id number] [place] [id number] Jul, [facility] ANA M [address] [id number] [place] [id number] Jul, [facility] [address] [id number] [address] [place] [address], [place] [address] Jul, [facility] [address] [id number] [address] [place] [address], [place] [address] Jul, [facility] ANA M [address] [id number] [place] [id number] Jun, [facility] [address] [id number] [address] [place] [address], [place] [address] Jun, [facility] ANA M [address] [id number] [place] [id number] May, [facility] [address] [facility] [id number] [address] [place] [address], [place] [address] May, [facility] ANA M [address] [id number] [place] [id number] Apr, [facility] [address] [facility] [id number] [address] [place] [address], [place] [address] Apr, [facility] [address] [facility] [id number] [address] [place] [address], [place] [address] Apr, [facility] ANA M [address] [id number] [place] [id number] Apr, [facility] [address] [id number] [address] [place] [address], [place] [address] Apr, [facility] ANA M [address] [id number] [place] [id number] Jan, [facility] [address] [id number] [address] [place] [address], [place] [address] Jan, [facility] ANA M [address] [id number] [place] [id number] Jan, [facility] ANA M [address] [id number] [place] [id number] Dec, [facility] [address] [id number] [place] [id number] Nov, [facility] [place] [address] [id number] [address] [place] [address] Nov, [facility] [place] [address] [facility] [id number] [address] [place] [address] Nov, [facility] [address] [facility] [id number] [place] [id number] Nov, [facility] [place] [address] [facility] [id number] [address] [place] [address] Nov, [facility] [place] [address] [facility] [id number] [address] [place] [phone] Nov, [facility] [address] [facility] [id number] [place] [id number] Nov, IMMUNIZATIONS No Known Immunizations SOCIAL HISTORY Never Assessed REASON FOR VISIT [facility]- 4 week f/u Diabetes [facility] PLAN OF CARE Activity Details Follow Up 2 Months Reason:CH DM VITAL SIGNS Height 64 in 2017-07-03 Weight 290.4 lbs 2017-07-03 Temperature 98.6 degrees Fahrenheit 2017-07-03 Heart Rate 92 bpm 2017-07-03 Respiratory Rate 16 2017-07-03 BMI 49.84 kg/m2 2017-07-03 Blood pressure systolic 120 mmHg 2017-07-03 Blood pressure diastolic 68 mmHg 2017-07-03 MEDICATIONS Medication Instructions Dosage Frequency Start Date End Date Duration S tatus Januvia 50 mg Orally Once a day 1 tablets 24h Apr, Active Fish Oil 1000 MG Orally Once a day 2 capsules 24h Jan, Active Glucophage 1000 MG Orally Twice a day 1 tablet with meals 12h Apr Active Simvastatin 20 mg Orally Once a day 2 tablet in the evening 24h Dec, 0 days Active RESULTS No Results PROCEDURES No [...] at work, hyp ertension, was seen at [facility] ER 04/09/16
--- OUTSIDE RECORDS SUMMARY | 2019-11-08 17:52 | XMS REPORT ---
Author Author Jennifer ZURITA [facility] eClinicalWorks Address Unknown Phone Unavailable Care Team Providers Care Direct Service Provider Name Role Phone CORA ZURITA Unavailable Allergies No Known Allergies Problems Problem Type Condition Code Onset Dates Condition Statu s Problem Nondependent tobacco use disorder 305.1 Active Problem Screening for malignant neoplasm of the cervix V76.2 Active Problem Screening examination for venereal disease V74.5 Active Problem Frequency of urination 788.41 Activ e Problem Pure hypercholesterolemia 272.0 Ac tive Problem Diabetes type 2, uncontrolled E11.65 Active Problem Obesity, unspecified 278.00 Active Problem Dietary surveillance and counseling V65.3 Active Problem Polycystic ovaries 256.4 Active Problem Hirsutism 704.1 Active Problem Other disorder of menstruati on and other abnormal bleeding from female genital tract 626.8 Active Problem Candidiasis of vulva and vagina 112.1 Active Problem Depressive disorder, not elsewhere classified 311 Active Problem Headache 784.0 Active Problem Other and unspecified hyperlipidemia 272.4 Active Problem Anxiety state, unspecified 300.00 A ctive Problem Unspecified breast screening V76.10 Active Medications No Known Medications Results No Known Results Summary Purpose eClinicalWorks Submission
--- OUTSIDE RECORDS SUMMARY | 2019-11-08 17:52 | XMS REPORT ---
Author Author Jennifer ZURITA [facility] eClinicalWorks Address Unknown Phone Unavailable Care Team Providers Care Porcelain Slusher Name Role Phone CORA ZURITA Unavailable Allergies No Known Allergies Problems Problem Type Condition Code Onset Dates Condition Statu s Problem Unspecified breast screening V76.10 Active Problem Screening examination for venereal disease V74.5 Active Problem Nondependent tobacco use disorder 305.1 Active Problem Pure hypercholesterolemia 272.0 Ac tive Problem Polycystic ovaries 256.4 Active Problem Frequency of urination 788.41 Activ e Problem Dietary surveillance and counseling V65.3 Active Problem Screening for malignant neoplasm of the cervix V76.2 Active Problem Hirsutism 704.1 Active Problem Obesity, unspecified 278.00 Active Problem Anxiety state, unspecified 300.00 A ctive Problem Candidiasis of vulva and vagina 112.1 Active Problem Other disorder of menstruati on and other abnormal bleeding from female genital tract 626.8 Active Problem Depressive disorder, not elsewhere classified 311 Active Problem Headache 784.0 Active Problem Other and unspecified hyperlipidemia 272.4 Active Medications No Known Medications Results No Known Results Summary Purpose eClinicalWorks Submission
--- OUTSIDE RECORDS SUMMARY | 2019-11-08 17:52 | XMS REPORT ---
Author Author Jennifer PHOENIX Organization [facility] Address [address] [place] [address] Care Team Providers Care Electric Frying Pan Repairer Name Role Phone GARY PHOENIX Unavailable [phone] PROBLEMS Type Condition ICD9-CM Code VXC41-NH Code Onset Dates Condition S tatus SNOMED Code Problem Difficulty sleeping G47.9 Active 456178359 Problem Uncontrolled type 2 diabetes mellitus without complication, without long-term current use of insulin E11.65 Active 288921494 Problem Morbid obesity, unspecified obesity type E66.01 Active 425037446 Problem Current severe episode of ma 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 without prior episode F32.2 Active 27770307 Problem Pure hypercholesterolemia, unspecified E78.00 Active 313793550 Problem Irritability R45.4 Active 2842074 7 Problem Moderate single current episode of major depressive disord er F32.1 Active 38658531 Problem Body mass index (BMI) of 45.0-49.9 in adult Z68.42 Active 388413757 Problem Other obesity due to excess calories E66.09 Active 204278006 Problem Type 2 diabetes mellitus wit h hyperglycemia, without long-term current use of insulin E11.65 Active 55677699 Problem Anxiety F41.9 Active 00012799 Problem Diabetes type 2, uncontrolled E11.65 Active 882162426 Problem Anhedonia R45.84 Active 77767748 Problem Pure hypercholesterolemia E78.0 Acti ve 327796206 Problem Mixed hyperlipidemia E78.2 Active 699789040 ALLERGIES No Known Allergies ENCOUNTERS Encounter Location Date Diagnosis [facility] COREY Rod0 [facility] [id number] [place] [id number] August, [facility] [address] [facility] [id number] [address] [place] [address] August, [facility] [address] [facility] [id number] [address] [place] [address] August, [facility] [address] [facility] [id number] [address] [place] [address] Jul, Current severe episode of ma 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 without prior episode F32.2 [facility] [address] [facility] [id number] [place] [id number] Jun, Mixed hyperlipidemia E78.2 ; Diabetes ty pe 2, uncontrolled E11.65 ; BMI 45.0- 49.9, adult Z68.42 ; Stressful life event affecting family Z63.79 ; BCP ( control pills) initiation Z30.011 and Anxiety F41.9 [facility] [address] [facility] [id number] [place] [id number] May, Diabetes type 2, uncontrolled E11.65 ; M ixed hyperlipidemia E78.2 ; Current severe episode of major depressive disorder without psychotic features without prior episode F32.2 ; Vaginal discharge N89.8 ; Vision changes H53.9 and BMI 45.0-49.9, adult Z68.42 [facility] [address] [facility] [id number] [place] [id number] May, Type 2 diabetes mellitus with hyperglyce mere, without long-term current use of insulin E11.65 and Mixed hyperlipidemia E78.2 [facility] 120 [facility] [id number] [place] [id number] May, Type 2 diabetes mellitus with hyperglyce mere, without long-term current use of insulin E11.65 [facility] [address] [id number] [id number] May, Dental examination Z01.20 [facility] [address] [id number] [place] [id number] May, Dental examination Z01.20 [facility] [address] [id number] [place] [id number] Apr, Dental examination Z01.20 [facility] [place] 120 [facility] [id number] [place] [id number] Jan, Mixed hyperlipidemia E78.2 and Pure hype rcholesterolemia, unspecified E78.00 [facility] [address] [facility] [id number] [place] [id number] Jan, Mid-back pain, acute M54.9 ; Anxiety [...] adult Z68.42 and BMI 45.0-49.9, adult Z68.42 [facility] [id number] [place] [id number] Dec, Diabetes type 2, uncontrolled E11.65 ; M orbid obesity, unspecified obesity type E66.01 ; Mixed hyperlipidemia E78.2 ; Moderate single current episode of major depressive disorder F32.1 ; Irritability R45.4 ; Dysuria R30.0 and BCP ( control pills) initiation Z30.011 [facility] [address] [id number] [address] [id number] Nov, Dental examination Z01.20 [facility] [id number] [place] [id number] Nov, Right wrist pain M25.531 [place] [id number] [place] [address], [place] [id number] Jul, BCP ( control pills) initiation Z30 .011 [facility] [id number] [place] [id number] Jun, Left otitis media, unspecified chronicit y, unspecified otitis media type H66.92 ; Morbid obesity, unspecified obesity type E66.01 ; Neck pain on left side M54.2 and Uncontrolled type 2 diabetes mellitus without complication, without long- term current use of insulin E11.65 [facility] [address] [id number] [place] [id number] Apr, Anxiety F41.9 ; Anhedonia R45.84 ; Diffi culty sleeping G47.9 ; Type 2 diabetes mellitus with hyperglycemia, without long-term current use of insulin E11.65 ; control counseling Z30.9 ; BCP ( control pills) initiation Z30.011 and Mixed hyperlipidemia E78.2 [facility] [address] [facility] [id number] [place] [id number] Oct, Diabetes type 2, uncontrolled E11.65 and Pure hypercholesterolemia E78.0 [facility] [address] [address] August, [facility] [place] [address] [facility] [id number] [place] [id number] Jun, Diabetes type 2, uncontrolled E11.65 and Pure hypercholesterolemia E78.0 [facility] [address] [facility] [id number] [place] [id number] Jun, Diabetes type 2, uncontrolled E11.65 [facility] [address] [place] [id number] [address] [place] [address] Mar, [facility] [address] [facility] [id number] [place] [id number] Mar, [facility] [place] [address] [place] [id number] [place] [id number] Mar, Diabetes type 2, uncontrolled E11.65 [facility] [address] [facility] [id number] [place] [id number] Mar, [address] [id number] [id number] August, Abdominal pain 789.00 and Frequency of u rination 788.41 [facility] [address] [place] [id number] [address] [place] [address] Jul, [place] [id number] [place] [id number] [place] [address] Jul, [facility] [id number] [place] [address], [place] [id number] Feb, [facility] [address] [address] Feb, [facility] A[place] M [address] [id number] [place] [id number] Feb, [facility] [address] [place] [address] [id number] [address] [place] [address], [place] [address] Feb, [facility] [address] [place] [address] [id number] [address] [place] [address], [place] [address] Feb, [facility] [address] [place] [address] [id number] [address] [place] [address], [place] [address] Feb, [facility] M [address] [id number] [place] [id number] Feb, [facility] [address] [id number] [address] [place] [address], [place] [address] Feb, [facility] M [address] [id number] [place] [id number] Jan, [facility] [address] [id number] [address] [place] [address], [place] [address] Jan, [facility] A[facility] M [address] [id number] [place] [id number] Sep, [facility] [address] [facility] [id number] [address] [place] [address], [place] [address] Sep, [facility] M [address] [id number] [place] [id number] August, [facility] [address] [id number] [address] [place] [address] August, [facility] [address] [id number] [address] [place] [address], [place] [address] Jul, [facility] A[facility] M [address] [id number] [place] [id number] Jul, [facility] A[facility] M [address] [id number] [place] [id number] Jul, [facility] M [address] [id number] [place] [id number] Jul, [facility] [address] [id number] [address] [place] [address], [place] [address] Jul, [facility] [address] [id number] [facility] [place] [address] Jul, [facility] M [address] [id number] [place] [id number] Jun, [facility] [address] [id number] [address] [place] [address], [place] [address] Jun, [facility] M [address] [id number] [place] [id number] May, [facility] [address] [id number] [address] [place] [address], [place] [address] May, [facility] M [address] [id number] [place] [id number] Apr, [facility] [address] [facility] [id number] [address] [place] [address], [place] [address] Apr, [facility] [address] [id number] [address] [place] [address] Apr, [facility] M [address] [id number] [place] [id number] Apr, [facility] [address] [id number] [address] [place] [address], [place] [address] Apr, [facility] M [address] [id number] [place] [id number] Jan, [facility] [address] [id number] [address] [place] [address], [place] [address] Jan, [facility] M [address] [id number] [place] [id number] Jan, [facility] A[facility] M [address] [id number] [place] [id number] Dec, [facility] A[facility] M [address] [id number] [place], [place] [id number] Nov, [facility] [address] [id number] [address] [place] [address], [place] [address] Nov, [facility] [address] [facility] [id number] [place] [address] Nov, [facility] [address] [facility] [id number] [place] M, [place] [id number] Nov, [facility] [address] [facility] [id number] [address] [place] [address] Nov, [facility] [address] [facility] [id number] [address] [place] [address] Nov, [facility] [address] [facility] [id number] [place]NA M, [place] [id number] Nov, IMMUNIZATIONS No Known Immunizations SOCIAL HISTORY Never Assessed REASON FOR VISIT Here to follow up on diabetes, has not been seen since April. anaya Mcgarry PLAN OF CARE Activity Details Follow Up 2 Weeks Reason:CHM Depressio n/irritability VITAL SIGNS Height 64 in 2017-01-03 Weight 293.2 lbs 2017-01-03 Temperature 98.2 degrees Fahrenheit 2017-01-03 Heart Rate 106 bpm 2017-01-03 Respiratory Rate 20 2017-01-03 BMI 50.32 kg/m2 2017-01-03 Blood pressure systolic 124 mmHg 2017-01-03 Blood pressure diastolic 72 mmHg 2017-01-03 MEDICATIONS Medication Instructions Dosage Frequency Start Date End Date Duration S tatus Januvia 50 mg Orally Once a day 1 tablets 24h Apr, 9 0 days Active Simvastatin 20 mg Orally Once a day 1 tablet in the evening 24h Dec, 30 day(s) Active Ortho-Cyclen (28) 0.25-35 MG-MCG orally daily take 1 tablet by Oral route 1 time per day 24h Feb, Active Abilify 10 mg Orally Once a day at bedtime 1 tablet Dec, 30 day(s) Active Glucophage 500 MG Orally Twice a day 2 tablet with meals 12h Apr, 30 day(s) Active RESULTS Name Result Date Reference Range A1C (IN HOUSE) 2017-01-03 A1C IN HOUSE 11.3 4.3 - 5.6 % Previous A1c 7.8 Lot [id number] Exp date 10/26 UA LONG DIP (IN HOUSE) 2017-01-03 Lot # [id number] Exp date 08/2017 Clarity clear Color yellow Odor no GLU trace CHANEL neg KET trace SG >=1.030 BLO neg pH 5.5 Protein 2+ URO 0.2 NIT neg FANNY neg Lot # Exp date PROCEDURES Procedure Date Ordered Result Body Site URINALYSIS, AUTO, W/O SCOPE Jan 03, 2017 GLYCATED HEMOGLOBIN TEST Jan 03, 2017 INSTRUCTIONS MEDICATIONS ADMINISTERED No Known Medications [...]
--- OUTSIDE RECORDS SUMMARY | 2019-11-08 17:52 | XMS REPORT ---
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.2 Active 86292206 Problem Pure hypercholesterolemia, unspecified E78.00 Active 437597902 Problem Irritability R45.4 Active 8185595 7 Problem Moderate single current episode of major depressive disord er F32.1 Active 28728695 Problem Body mass index (BMI) of 45.0-49.9 in adult Z68.42 Active 126007373 Problem Other obesity due to excess calories E66.09 Active 755556032 Problem Type 2 diabetes mellitus wit h hyperglycemia, without long-term current use of insulin E11.65 Active 02301386 Problem Anxiety F41.9 Active 89935452 Problem Diabetes type 2, uncontrolled E11.65 Active 646661993 Problem Anhedonia R45.84 Active 74367633 Problem Pure hypercholesterolemia E78.0 Acti ve 266992163 Problem Mixed hyperlipidemia E78.2 Active 143393434 ALLERGIES No Information ENCOUNTERS Encounter Location Date Diagnosis [facility] [address] [id number] [place] [id number] 02 Oct, 2017 Dental examination Z01.20 [facility] [address] [id number] [place] [id number] 02 Oct, 2018 Dental examination Z01.20 [facility] [address] [id number] [place] [id number] August, BMI 45.0-49.9, adult Z68.42 ; Diabetes t ype 2, uncontrolled E11.65 and Mixed hyperlipidemia E78.2 [facility] [address] [facility] [id number] [place] [id number] August, Dental examination Z01.20 [facility] [address] [facility] N[facility] [id number] [address] [place] [address] Jul, Current severe episode of ma 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 without prior episode F32.2 [facility] [address] [facility] [id number] [place] [id number] Jun, Mixed hyperlipidemia E78.2 ; Diabetes ty pe 2, uncontrolled E11.65 ; BMI 45.0- 49.9, adult Z68.42 ; Stressful life event affecting family Z63.79 ; BCP ( control pills) initiation Z30.011 and Anxiety F41.9 [facility] 120 [facility] [id number] [place] [id number] May, Diabetes type 2, uncontrolled E11.65 ; M ixed hyperlipidemia E78.2 ; Current severe episode of major depressive disorder without psychotic features without prior episode F32.2 ; Vaginal discharge N89.8 ; Vision changes H53.9 and BMI 45.0-49.9, adult Z68.42 [facility] 120 [facility] [id number] [place] [id number] May, Type 2 diabetes mellitus with hyperglyce mere, without long-term current use of insulin E11.65 and Mixed hyperlipidemia E78.2 [facility] [address] [facility] [id number] [place] [id number] May, Type 2 diabetes mellitus with hyperglyce mere, without long-term current use of insulin E11.65 [facility] [address] [facility] [id number] [place] [id number] May, Dental examination Z01.20 [facility] [address] [facility] [id number] [place] [id number] May, Dental examination Z01.20 [place] [address] [facility] [id number] [place] [id number] Apr, Dental examination Z01.20 [facility] [id number] [place] [id number] Jan, Mixed hyperlipidemia E78.2 and Pure hype rcholesterolemia, unspecified E78.00 [facility] [address] [facility] [id number] [place] [id number] Jan, Mid-back pain, acute M54.9 ; Anxiety [...] adult Z68.42 and BMI 45.0-49.9, adult Z68.42 [place] [address] [facility] [id number] [place] [id number] Dec, Diabetes type 2, uncontrolled E11.65 ; M orbid obesity, unspecified obesity type E66.01 ; Mixed hyperlipidemia E78.2 ; Moderate single current episode of major depressive disorder F32.1 ; Irritability R45.4 ; Dysuria R30.0 and BCP ( control pills) initiation Z30.011 [facility] [address] [id number] [address] [place] [id number] Nov, Dental examination Z01.20 [facility] [address] [facility] [id number] [place] [id number] Nov, Right wrist pain M25.[address] [id number] [place] [id number] Jul, BCP ( control pills) initiation Z30 .011 [facility] [address] [facility] [id number] [place] [id number] Jun, Left otitis media, unspecified chronicit y, unspecified otitis media type H66.92 ; Morbid obesity, unspecified obesity type E66.01 ; Neck pain on left side M54.2 and Uncontrolled type 2 diabetes mellitus without complication, without long- term current use of insulin E11.65 [facility] [address] [facility] [id number] [place] [id number] 03 Apr, 2016 Anxiety F41.9 ; Anhedonia R45.84 ; Diffi culty sleeping G47.9 ; Type 2 diabetes mellitus with hyperglycemia, without long-term current use of insulin E11.65 ; control counseling Z30.9 ; BCP ( control pills) initiation Z30.011 and Mixed hyperlipidemia E78.2 [facility] [address] [facility] [id number] [place] [id number] 08 Oct, 2015 Diabetes type 2, uncontrolled E11.65 and Pure hypercholesterolemia E78.0 [facility] [address] [address] August, [facility] [address] [facility] [id number] [place], [place] [id number] Jun, Diabetes type 2, uncontrolled E11.65 and Pure hypercholesterolemia E78.0 [facility] [address] [facility] [id number] [place], [place] [id number] Jun, Diabetes type 2, uncontrolled E11.65 [facility] [address] [address] Mar, [facility] [address] [facility] [id number] [place] [id number] Mar, [facility] [address] [place] [id number] [place], [place] [id number] Mar, Diabetes type 2, uncontrolled E11.65 [facility] [address] [facility] [id number] [place], [place] [id number] Mar, [facility] [place] [address] [id number] [place] [id number] August, Abdominal pain 789.00 and Frequency of u rination 788.41 [facility] [address] [address] Jul, [facility] [address] [place] [address] Jul, [facility] M [address] [id number] [place] [id number] Feb, [facility] [address] [id number] [address] [place] [address] Feb, [facility] M [address] [id number] [place] [id number] Feb, [facility] [address] [id number] [address] [place] [address] Feb, [facility] [address] [id number] [address] [place] [address], [place] [address] Feb, [facility] [address] [id number] [address] [place] [address] Feb, [facility] [address] [id number] [place] [id number] Feb, [facility] [address] [id number] [address] [place] [address] Feb, [facility] M [address] [id number] [place] [id number] Jan, [facility] [address] [id number] [address] [place] [address] Jan, [facility] M [address] [id number] [place] [id number] Sep, [facility] [address] [id number] [address] [place] [address], [place] [address] Sep, [facility] [address] [id number] [place] [id number] August, [facility] [address] [id number] [address] [place] [address], [place] [address] August, [facility] [address] [id number] [address] [place] [address], [place] [address] Jul, [facility] M [address] [id number] [place] [id number] Jul, [facility] M [address] [id number] [place], [place] [id number] Jul, [facility] M [address] [id number] [place], [place] [id number] Jul, [facility] [address] [id number] [address] [place] [address], [place] [address] Jul, [facility] [address] [id number] [address] [place] [address], [place] [address] Jul, [facility] M [address] [id number] [place] [id number] Jun, [facility] [address] [id number] [address] [place] [address], [place] [address] Jun, [facility] M [address] [id number] [place] [id number] May, [facility] [address] [facility] [address]AM[address] [facility] [id number] [address] [place] [address], [place] [address] May, [facility] M [address] [id number] [place] [id number] Apr, [facility] [address] [facility] [address]AMED [facility] [id number] [address] [place] [address] Apr, [facility] [address] [facility] NAMED [facility] [id number] [address] [place] [address] Apr, [facility] M [address] [id number] [place] [id number] Apr, [facility] [address] [id number] [address] [place] [address] Apr, [facility] [address] [id number] [place] [id number] Jan, [facility] [address] [id number] [address] [place] [address], [place] [id number] Jan, [facility] [address] [id number] [place] [id number] Jan, [facility] [address] [id number] [place] [id number] Dec, [facility] [address] [facility] [id number] [place] [id number] Nov, [facility] [address] [facility] [facility] [id number] [address] [place] [id number] Nov, [facility] [address] [facility] [address] [facility] [id number] [address] [place] [phone] Nov, [facility] [address] [facility] [id number] [place] [id number] Nov, [facility] [address] [facility] [address] [facility] [id number] [address] [place] [phone] Nov, [facility] [address] [facility] [address] [facility] [id number] [address] [place] [phone] Nov, [facility] [address] [facility] [id number] [place] [id number] Nov, IMMUNIZATIONS No Known Immunizations SOCIAL HISTORY Never Assessed REASON FOR VISIT requesting a returned call PLAN OF CARE VITAL SIGNS MEDICATIONS Medication Instructions Dosage Frequency Start Date End Date Duration S tatus Januvia 50 mg Orally Once a day 1 tablets 24h Apr, 3 0 days Active RESULTS No Results PROCEDURES [...]
--- OUTSIDE RECORDS SUMMARY | 2019-11-08 17:52 | XMS REPORT ---
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 without prior episode F32.2 Active 72901101 Problem Pure hypercholesterolemia, unspecified E78.00 Active 379667131 Problem Irritability R45.4 Active 7066900 7 Problem Moderate single current episode of major depressive disord er F32.1 Active 01000802 Problem Body mass index (BMI) of 45.0-49.9 in adult Z68.42 Active 650015928 Problem Other obesity due to excess calories E66.09 Active 986814955 Problem Type 2 diabetes mellitus wit h hyperglycemia, without long-term current use of insulin E11.65 Active 13751681 Problem Anxiety F41.9 Active 66778227 Problem Diabetes type 2, uncontrolled E11.65 Active 379216498 Problem Anhedonia R45.84 Active 24542910 Problem Pure hypercholesterolemia E78.0 Acti ve 675292979 Problem Mixed hyperlipidemia E78.2 Active 464834310 ALLERGIES No Known Allergies ENCOUNTERS Encounter Location Date Diagnosis [facility] [address] [facility] [id number] [address] [place] [address] August, [facility] [address] [facility] [id number] [address] [place] [address] Jul, [facility] [address] [facility] [id number] [address] [place] [address] Jul, Current severe episode of ma 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 without prior episode F32.2 [facility] [place] [address] [id number] [place] [id number] Jun, Mixed hyperlipidemia E78.2 ; Diabetes ty pe 2, uncontrolled E11.65 ; BMI 45.0- 49.9, adult Z68.42 ; Stressful life event affecting family Z63.79 ; BCP ( control pills) initiation Z30.011 and Anxiety F41.9 [facility] [place] [address] [id number] [place] [id number] May, Diabetes type 2, uncontrolled E11.65 ; M ixed hyperlipidemia E78.2 ; Current severe episode of major depressive disorder without psychotic features without prior episode F32.2 ; Vaginal discharge N89.8 ; Vision changes H53.9 and BMI 45.0-49.9, adult Z68.42 [facility] [place] [address] [id number] [place] [id number] May, Type 2 diabetes mellitus with hyperglyce mere, without long-term current use of insulin E11.65 and Mixed hyperlipidemia E78.2 [facility] [place] [address] [id number] [place] [id number] May, Type 2 diabetes mellitus with hyperglyce mere, without long-term current use of insulin E11.[address] [facility] [address] [id number] [place] [id number] May, Dental examination Z01.20 [facility] [place] [address] [facility] [address] [id number] [place] [id number] May, Dental examination Z01.20 [facility] [address] [id number] [place] [id number] Apr, Dental examination Z01.20 [facility] [place] [facility] [address] [id number] [place] [id number] Jan, Mixed hyperlipidemia E78.2 and Pure hype rcholesterolemia, unspecified E78.00 [facility] M [address] [id number] [place] [id number] Jan, Mid-back pain, acute M54.9 ; Anxiety [...] adult Z68.42 and BMI 45.0-49.9, adult Z68.42 [facility] [place] [address] [id number] [place] [id number] Dec, Diabetes type 2, uncontrolled E11.65 ; M orbid obesity, unspecified obesity type E66.01 ; Mixed hyperlipidemia E78.2 ; Moderate single current episode of major depressive disorder F32.1 ; Irritability R45.4 ; Dysuria R30.0 and BCP ( control pills) initiation Z30.011 [facility] [address] [facility] [id number] [address] [id number] Nov, Dental examination Z01.20 [facility] [place] [address] [id number] [place] [id number] Nov, Right wrist pain M25.531 [facility] [place] [address] [place] [id number] [place] [id number] Jul, BCP ( control pills) initiation Z30 .011 [facility] [place] [address] [place] [address] [id number] [place] [id number] Jun, Left otitis media, unspecified chronicit y, unspecified otitis media type H66.92 ; Morbid obesity, unspecified obesity type E66.01 ; Neck pain on left side M54.2 and Uncontrolled type 2 diabetes mellitus without complication, without long- term current use of insulin E11.65 [facility] [place] [address] [id number] [place] [id number] Apr, Anxiety F41.9 ; Anhedonia R45.84 ; Diffi culty sleeping G47.9 ; Type 2 diabetes mellitus with hyperglycemia, without long-term current use of insulin E11.65 ; control counseling Z30.9 ; BCP ( control pills) initiation Z30.011 and Mixed hyperlipidemia E78.2 [facility] [place] [address] [id number] [place] [id number] Oct, Diabetes type 2, uncontrolled E11.65 and Pure hypercholesterolemia E78.0 [facility] [address] [facility] [id number] [address] [place] [address] August, [facility] [facility] [address] [id number] [place] [id number] Jun, Diabetes type 2, uncontrolled E11.65 and Pure hypercholesterolemia E78.0 [facility] [place] [address] [id number] [place] [id number] Jun, Diabetes type 2, uncontrolled E11.65 [facility] [address] [facility] [id number] [address] [place] [address] Mar, [facility] [place] [address] [facility] [id number] [place] [id number] Mar, [facility] [address] [facility] [id number] [place] [id number] Mar, Diabetes type 2, uncontrolled E11.65 [facility] [place] [address] [facility] [id number] [place] [id number] Mar, [facility] [address] [id number] [place] [id number] August, Abdominal pain 789.00 and Frequency of u rination 788.41 [facility] [address] [place] [id number] [address] [place] [address] Jul, [facility] [address] [facility] [id number] [address] [place] [address] Jul, [facility] [place] [address] [facility] [id number] [place] [id number] Feb, [facility] [address] [place] [id number] [address] [place] [address] Feb, [facility] [place] [address] [facility] [id number] [place] [id number] Feb, [facility] [address] [place] [id number] [address] [place] [address] Feb, [facility] [address] [id number] [address] [place] [address], [place] [address] Feb, [facility] [address] [id number] [address] [place] [address], [place] [address] Feb, [facility] [place] [facility] [address] [id number] [place] [id number] Feb, [facility] [address] [id number] [address] [place] [address], [place] [address] Feb, [facility] [place] [address] [id number] [place] [id number] Jan, [facility] [address] [id number] [address] [place] [address], [place] [address] Jan, [facility] [facility] [address] [id number] [place] [id number] Sep, [facility] [address] [id number] [address] [place] [address], [place] [address] Sep, [facility] [facility] [address] [id number] [place] [id number] August, [facility] [address] [id number] [address] [place] [address], [place] [address] August, [facility] [address] [id number] [address] [place] [address], [place] [address] Jul, [facility] [address] [id number] [place] [id number] Jul, [facility] [address] [id number] [place] [id number] Jul, [facility] [facility] [address] [id number] [place] [id number] Jul, [facility] [address] [id number] [address] [place] [address], [place] [address] Jul, [facility] [address] [id number] [address] [place] [address], [place] [address] Jul, [facility] [place] [address] [id number] [place] [id number] Jun, [facility] [address] [id number] [address] [place] [address], [place] [address] Jun, [facility] [place] [address] [id number] [place] [id number] May, [facility] [address] [id number] [address] [place] [address], [place] [address] May, [facility] [facility] [address] [id number] [place] [id number] Apr, [facility] [address] [id number] [address] [place] [address], [place] [address] Apr, [facility] [address] [facility] [id number] [address] [place] [address], [place] [address] Apr, [facility] [place] [address] [id number] [place] [id number] Apr, [facility] [address] [facility] [id number] [address] [place] [address], [place] [address] Apr, [facility] [place] [address] [id number] [place] [id number] Jan, [facility] [address] [id number] [address] [place] [address], [place] [address] Jan, [facility] [place] [address] [id number] [place] [id number] Jan, [facility] [address] [id number] [place] [id number] Dec, [facility] [place] [address] [id number] [place] [id number] Nov, [facility] [address] [id number] [address] [place] [address], [place] [address] Nov, [facility] [address] [facility] [id number] [address] [place] [address], [place] [address] Nov, [facility] [facility] [address] [id number] [place] [id number] Nov, [facility] [address] [facility] [id number] [place] [address] Nov, [facility] [address] [facility] [id number] [place] [address] Nov, [facility] [address] [id number] [place], [place] [id number] Nov, IMMUNIZATIONS No Known Immunizations SOCIAL HISTORY Never Assessed REASON FOR VISIT DORON PLAN OF CARE Activity Details Follow Up prn Reason:O&R VITAL SIGNS Blood pressure systolic 134 mmHg 2016-12-07 Blood pressure diastolic 94 mmHg 2016-12-07 MEDICATIONS Medication Instructions Dosage Frequency Start Date End Date Duration S tatus Glucophage 500 MG Orally Twice a day 2 tablet with meals 12h Apr, 30 day(s) Active Ortho-Cyclen (28) 0.25-35 MG-MCG orally daily take 1 tablet by Oral route 1 time per day 24h Feb, 0 Active Januvia 50 mg Orally Once a day 1 tablets 24h Apr, 9 0 days Active Medrol 4 MG Orally Once a day take each days dose at one time daily, until all gone.as directed 24h 10 Nov, 2016 Active RESULTS No Results PROCEDURES Procedure Date Ordered Result Body Site LTD ORAL EVALUATION - PROBLEM FOCUS Dec 07, 2016 INTRAORL-PERIAPICAL 1 FILM 41126 Dec 07, 2016 BITEWING - SINGLE FILM Dec 07, 2016 INSTRUCTIONS MEDICATIONS ADMINISTERED No Known Medications MEDICAL [...] at work, hyp ertension, was seen at [facility] 04/09/16
--- OUTSIDE RECORDS SUMMARY | 2019-11-08 17:52 | XMS REPORT ---
Author Author Jennifer JOHNSON Organization [employer] Address Unknown Phone Unavailable Care Team Providers Care Office Clerk Routine Name Role Phone MONCHO JOHNSON Unavailable Allergies No Known Allergies Problems Problem [...] Problem Unspecified breast screening V76.10 Active Medications Medication Code System Code Instructions Start Date End Date Status Dosage metformin NDC 0 500 mg 2 times a day May 29, 2013 June 09, 2 016 2 tablet Results No Known Results Summary Purpose [employer] Submission
--- OUTSIDE RECORDS SUMMARY | 2019-11-08 17:52 | XMS REPORT ---
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 without prior episode F32.2 Active 13431969 Problem Pure hypercholesterolemia, unspecified E78.00 Active 200280549 Problem Irritability R45.4 Active 3527108 7 Problem Moderate single current episode of major depressive disord er F32.1 Active 18242589 Problem Body mass index (BMI) of 45.0-49.9 in adult Z68.42 Active 174498520 Problem Other obesity due to excess calories E66.09 Active 593001599 Problem Type 2 diabetes mellitus wit h hyperglycemia, without long-term current use of insulin E11.65 Active 71027667 Problem Anxiety F41.9 Active 19084948 Problem Diabetes type 2, uncontrolled E11.65 Active 467955561 Problem Anhedonia R45.84 Active 17597328 Problem Pure hypercholesterolemia E78.0 Acti ve 828185671 Problem Mixed hyperlipidemia E78.2 Active 785383531 ALLERGIES No Known Allergies ENCOUNTERS Encounter Location Date Diagnosis [facility] [address] [facility] [id number] [id number] 02 Oct, 2018 Dental examination Z01.20 [facility] [address] [facility] [id number] [id number] 02 Oct, 2018 Dental examination Z01.20 [facility] [address] [facility] [id number][place] [id number] August, BMI 45.0-49.9, adult Z68.42 ; Diabetes t ype 2, uncontrolled E11.65 and Mixed hyperlipidemia E78.2 [facility] [address] [facility] [id number][place] [id number] August, Dental examination Z01.20 [facility] [address] [facility] [id number] [address] [place] [address] Jul, Current severe episode of ma 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 without prior episode F32.2 [facility] [address] [facility] [id number] [place] [id number] Jun, Mixed hyperlipidemia E78.2 ; Diabetes ty pe 2, uncontrolled E11.65 ; BMI 45.0- 49.9, adult Z68.42 ; Stressful life event affecting family Z63.79 ; BCP ( control pills) initiation Z30.011 and Anxiety F41.9 [facility] [address] [place] [id number] May, Diabetes type 2, uncontrolled E11.65 ; M ixed hyperlipidemia E78.2 ; Current severe episode of major depressive disorder without psychotic features without prior episode F32.2 ; Vaginal discharge N89.8 ; Vision changes H53.9 and BMI 45.0-49.9, adult Z68.42 [facility] [address] [facility] [id number] [place] [id number] May, Type 2 diabetes mellitus with hyperglyce mere, without long-term current use of insulin E11.65 and Mixed hyperlipidemia E78.2 [facility] [address] [facility] [id number] [place] [id number] May, Type 2 diabetes mellitus with hyperglyce mere, without long-term current use of insulin E11.65 [facility] [address] [facility] [id number][place] [id number] May, Dental examination Z01.20 [facility] [address] [facility] [id number], [place] [id number] May, Dental examination Z01.20 [place] [address] [facility] [address] [id number] [place] [id number] Apr, Dental examination Z01.20 [facility] [id number] [place] [id number] Jan, Mixed hyperlipidemia E78.2 and Pure hype rcholesterolemia, unspecified E78.[address] [id number] [place] [id number] Jan, Mid-back pain, acute M54.9 ; Anxiety [...] adult Z68.42 and BMI 45.0-49.9, adult Z68.[address] [id number] [place] [id number] Dec, Diabetes type 2, uncontrolled E11.65 ; M orbid obesity, unspecified obesity type E66.01 ; Mixed hyperlipidemia E78.2 ; Moderate single current episode of major depressive disorder F32.1 ; Irritability R45.4 ; Dysuria R30.0 and BCP ( control pills) initiation Z30.011 [facility] [address] [id number] [address] [place] [address] [id number] Nov, Dental examination Z01.20 [facility] [address] [facility] [id number] [place] [id number] Nov, Right wrist pain M25.[address] [id number] [place] [id number] Jul, BCP ( control pills) initiation Z30 .011 [facility] [address] [place] [id number] [place] [id number] Jun, Left otitis media, unspecified chronicit y, unspecified otitis media type H66.92 ; Morbid obesity, unspecified obesity type E66.01 ; Neck pain on left side M54.2 and Uncontrolled type 2 diabetes mellitus without complication, without long- term current use of insulin E11.65 [facility] [address] [facility] [id number] [place] [id number] 03 Apr, 2016 Anxiety F41.9 ; Anhedonia R45.84 ; Diffi culty sleeping G47.9 ; Type 2 diabetes mellitus with hyperglycemia, without long-term current use of insulin E11.65 ; control counseling Z30.9 ; BCP ( control pills) initiation Z30.011 and Mixed hyperlipidemia E78.2 [facility] [address] [facility] [id number] [place] [id number] 08 Oct, 2015 Diabetes type 2, uncontrolled E11.65 and Pure hypercholesterolemia E78.0 [place] [address] [address] August, [facility] [address] [place] [id number] [place] [id number] Jun, Diabetes type 2, uncontrolled E11.65 and Pure hypercholesterolemia E78.0 [facility] [address] [facility] [id number] [place] [id number] Jun, Diabetes type 2, uncontrolled E11.65 [place] [address] [address] Mar, [facility] [address] [facility] [id number] [place] [id number] Mar, [facility] [address] [place] [id number] [place] [id number] Mar, Diabetes type 2, uncontrolled E11.65 [facility] [address] [facility] [id number] [place] [id number] Mar, [facility] [id number] [place] [id number] August, Abdominal pain 789.00 and Frequency of u rination 788.41 [facility] [address] [address] Jul, [facility] [address] [address] Jul, [facility] [address] [id number] [place] [id number] Feb, [facility] [address] [id number] [address] [place] [address], [place] [address] Feb, [facility] [address] [id number] [place] [id number] Feb, [facility] [address] [id number] [address] [place] [address], [place] [address] Feb, [facility] [address] [id number] [address] [place] [address], [place] [address] Feb, [facility] [address] [id number] [address] [place] [address] Feb, [facility] [address] [id number] [place] [id number] Feb, [facility] [address] [id number] [address] [place] [address] Feb, [facility] [address] [id number] [place] [id number] Jan, [facility] [address] [id number] [address] [place] [address] Jan, [facility] [address] [id number] [place] [id number] Sep, [facility] [address] [id number] [address] [place] [address], [place] [address] Sep, [facility] [address] [id number] [place] [id number] August, [facility] [address] [id number] [address] [place] [address], [place] [address] August, [facility] [address] [id number] [address] [place] [address], [place] [address] Jul, [facility] [address] [id number] [place] [id number] Jul, [facility] [address] [id number] [place] [id number] Jul, [facility] [address] [id number] [place] [id number] Jul, [facility] [address] [id number] [address] [place] [address], [place] [address] Jul, [facility] [address] [id number] [address] [place] [address], [place] [address] Jul, [facility] [address] [id number] [place] [id number] Jun, [facility] [address] [id number] [address] [place] [address], [place] [address] Jun, [facility] [address] [id number] [place] [id number] May, [facility] [address] [facility] [id number] [address] [place] [address], [place] [address] May, [facility] [address] [id number] [place] [id number] Apr, [facility] [address] [facility] [id number] [address] [place] [address], [place] [address] Apr, [facility] [address] [facility] [id number] [address] [place] [address], [place] [address] Apr, [facility] [address] [id number] [place] [id number] Apr, [facility] [address] [id number] [address] [place] [address], [place] [address] Apr, [facility] [address] [id number] [place] [id number] Jan, [facility] [address] [id number] [address] [place] [address], [place] [address] Jan, [facility] [address] [id number] [place] [id number] Jan, [facility] [address] [id number] [place] [id number] Dec, [facility] [address] [id number] [place] [id number] Nov, [facility] [address] [id number] [address] [place] [address] Nov, [facility] [address] [id number] [address] [place] [address] Nov, [facility] [address] [id number] [place] [id number] Nov, [facility] [address] [id number] [address] [place] [id number] Nov, [facility] [address] [id number] [address] [place] [phone] Nov, [facility] [address] [id number] [place] [id number] Nov, IMMUNIZATIONS No Known Immunizations SOCIAL HISTORY Never Assessed REASON FOR VISIT Abcess PLAN OF CARE Activity Details Follow Up prn Reason:JESUS w/ Hygiene VITAL SIGNS Height 64 in 2017-05-09 Blood pressure systolic 134 mmHg 2017-05-09 Blood pressure diastolic 86 mmHg 2017-05-09 MEDICATIONS Medication Instructions Dosage Frequency Start Date End Date Duration S sue Ortho-Cyclen (28) 0.25-35 MG-MCG orally daily take 1 tablet by Oral route 1 time per day 24h Feb, Active Glucophage 500 MG Orally Twice a day 2 tablet with meals 12h Apr, Active Januvia 50 mg Orally Once a day 1 tablets 24h Apr, Active Simvastatin 40 MG Orally Once a day 1 tablet in the evening 24h Dec, 0 days Active Clindamycin HCl 150 MG Orally every 8 hrs 2 capsules 8h 5 day(s) Active Abilify 10 mg Orally Once a day at bedtime 1 tablet Dec, Not-Taking Diclofenac Active Motrin IB 800 Orally every 6 hrs 1 tablet as needed 6h 5 days Active Flexeril Active Fish Oil 1000 MG Orally Once a day 2 capsules 24h Jan, 0 days Active RESULTS No Results PROCEDURES Procedure Date Ordered Result Body Site LTD ORAL EVALUATION - PROBLEM FOCUS May 09, 2017 INTRAORL-PERIAPICAL 1 FILM 20992 May 09, 2017 BITEWING - SINGLE FILM May 09, 2017 INSTRUCTIONS MEDICATIONS ADMINISTERED No Known [...]
--- OUTSIDE RECORDS SUMMARY | 2019-11-08 17:52 | XMS REPORT ---
Author Author Jennifer ZURITA [facility] eClinicalWorks Address Unknown Phone Unavailable Care Team Providers Care Tooth Cutter Clutch Name Role Phone CORA ZURITA CP Unavailable Allergies, Adverse Reactions, Alerts Substance Reaction Event Type N.K.D.A. Info Not Available Non Drug Allergy Problems Problem Type Condition Code Onset Dates [...] ovaries 256.4 Active Problem Hirsutism 704.1 Active Assessment Diabetes type 2, uncontrolled E11.65 Active Problem Other disorder of menstruati on [...] End Date Status Dosage metformin NDC 0 1,000 mg May 29, 2013 take 1 tablet by Oral route 2 times per day with meals Amaryl NDC [address]-86 2 MG Orally Once a day Mar 12, 2015 1 tablet with breakfast or the first main meal of the day Procedures Procedure Coding System Code Date GLYCATED HEMOGLOBIN TEST CPT-4 62509 Mar 12, 2015 Office Visit, Est Pt., Level 3 CPT-4 12218 D 2014 Vital Signs Date/Time: Mar 12, 2015 Temperature 98.4 F Weight 317.6 lbs Height 64 in BMI 54.51 Index Blood Pressure Diastolic 76 mmHg Blood Pressure Systolic 110 mmHg Cardiac Monitoring Heart Rate 108 bpm Results No Known Results Summary Purpose eClinicalWorks Submission
--- OUTSIDE RECORDS SUMMARY | 2019-11-08 17:53 | XMS REPORT ---
Author Author Jennifer ZURITA [facility] eClinicalWorks Address Unknown Phone Unavailable Care Team Providers Care Farm Management Agent Name Role Phone CORA ZURITA CP Unavailable Allergies, Adverse Reactions, Alerts Substance Reaction Event Type N.K.D.A. Info Not Available Non Drug Allergy Problems Problem Type Condition Code Onset Dates Condition Statu s Problem Screening examination for venereal disease V74.5 Active Problem Dietary surveillance and counseling V65.3 Active Problem Screening for malignant neoplasm of the cervix V76.2 Active Problem Diabetes type 2, uncontrolled E11.65 Active Problem Frequency of urination 788.41 Activ e Problem Pure hypercholesterolemia E78.0 Ac tive Problem Hirsutism 704.1 Active Problem Obesity, unspecified 278.00 Active Problem Pure hypercholesterolemia 272.0 Ac tive Problem Polycystic ovaries 256.4 Active Problem Other disorder of menstruati on and other abnormal bleeding from female genital tract 626.8 Active Problem Headache 784.0 Active Assessment Pure hypercholesterolemia E78.0 Ac tive Assessment Diabetes type 2, uncontrolled E11.65 Active Problem Depressive disorder, not elsewhere classified 311 Active Problem Other and unspecified hyperlipidemia 272.4 Active Problem Anxiety state, unspecified 300.00 A ctive Problem Unspecified breast screening V76.10 Active Problem Candidiasis of vulva and vagina 112.1 Active Problem Nondependent tobacco use disorder 305.1 Active Medications Medication Code System Code Instructions Start Date End Date Status Dosage Ortho-Cyclen (28) [facility] [address]-79 0.25-35 MG-MCG Feb 26, 2014 take 1 tablet by Oral route 1 time per day Simvastatin [facility] [address]-32 40 MG September 05, 2013 T tashi 1 tablet by Oral route 1 time per day MetFORMIN HCl ER [facility] [address]-40 500 MG Orally twice a day August 27, 2015 2 tablets Januvia [facility] [address]-03 100 MG Orally Once a day June 26, 2015 1 tablet Procedures Procedure Coding System Code Date Office Visit, Est Pt., Level 3 CPT-4 34829 [facility] 2015 GLYCATED HEMOGLOBIN TEST CPT-4 43781 October Vital Signs Date/Time: October 16, 2015 Cardiac Monitoring Heart Rate 82 bpm Weight 293.6 lbs Height 64 in BMI 50.39 Index Blood Pressure Diastolic 68 mmHg Blood Pressure Systolic 122 mmHg Results No Known Results Summary Purpose eClinicalWorks Submission
--- OUTSIDE RECORDS SUMMARY | 2019-11-08 17:53 | XMS REPORT ---
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 without prior episode F32.2 Active 87415920 Problem Pure hypercholesterolemia, unspecified E78.00 Active 864028135 Problem Irritability R45.4 Active 7724502 7 Problem Moderate single current episode of major depressive disord er F32.1 Active 06925348 Problem Body mass index (BMI) of 45.0-49.9 in adult Z68.42 Active 171967616 Problem Other obesity due to excess calories E66.09 Active 253768998 Problem Type 2 diabetes mellitus wit h hyperglycemia, without long-term current use of insulin E11.65 Active 00112870 Problem Anxiety F41.9 Active 47256825 Problem Diabetes type 2, uncontrolled E11.65 Active 940568287 Problem Anhedonia R45.84 Active 17305138 Problem Pure hypercholesterolemia E78.0 Acti ve 346798199 Problem Mixed hyperlipidemia E78.2 Active 994342469 ALLERGIES No Known Allergies ENCOUNTERS Encounter Location Date Diagnosis [facility] [address] [id number] [place] [id number] Oct, [facility] [address] [id number] [place] [id number] August, BMI 45.0-49.9, adult Z68.42 ; Diabetes t ype 2, uncontrolled E11.65 and Mixed hyperlipidemia E78.2 [facility] [address] [id number] [place] [id number] August, Dental examination Z01.20 [facility] [address] [facility] [id number] 100[address] [place] [address] Jul, Current severe episode of ma 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 without prior episode F32.2 [facility] [address] [facility] [id number] [place] [id number] Jun, Mixed hyperlipidemia E78.2 ; Diabetes ty pe 2, uncontrolled E11.65 ; BMI 45.0- 49.9, adult Z68.42 ; Stressful life event affecting family Z63.79 ; BCP ( control pills) initiation Z30.011 and Anxiety F41.9 [facility] [address] [facility] [id number] [place] [id number] May, Diabetes type 2, uncontrolled E11.65 ; M ixed hyperlipidemia E78.2 ; Current severe episode of major depressive disorder without psychotic features without prior episode F32.2 ; Vaginal discharge N89.8 ; Vision changes H53.9 and BMI 45.0-49.9, adult Z68.42 [facility] 120 [facility] [id number] [place] [id number] May, Type 2 diabetes mellitus with hyperglyce mere, without long-term current use of insulin E11.65 and Mixed hyperlipidemia E78.[address] [id number] [place] [id number] May, Type 2 diabetes mellitus with hyperglyce mere, without long-term current use of insulin E11.65 [facility] [address] [id number] [place] [id number] May, Dental examination Z01.20 [facility] [id number] [id number] May, Dental examination Z01.20 [facility] [id number] [id number] Apr, Dental examination Z01.20 [place] [id number] [place] [id number] Jan, Mixed hyperlipidemia E78.2 and Pure hype rcholesterolemia, unspecified E78.00 [facility] [id number] [place] [id number] Jan, Mid-back pain, acute M54.9 ; Anxiety [...] adult Z68.42 and BMI 45.0-49.9, adult Z68.42 [address]00565100[facility], [place] [id number] Dec, Diabetes type 2, uncontrolled E11.65 ; M orbid obesity, unspecified obesity type E66.01 ; Mixed hyperlipidemia E78.2 ; Moderate single current episode of major depressive disorder F32.1 ; Irritability R45.4 ; Dysuria R30.0 and BCP ( control pills) initiation Z30.011 [facility] [address] [id number] [place] [id number] Nov, Dental examination Z01.20 [facility] [address]100[facility], [place] [id number] Nov, Right wrist pain M25.[address] [place] [address], [place] [id number] Jul, BCP ( control pills) initiation Z30 .011 [facility] [id number] [place] [id number] Jun, Left otitis media, unspecified chronicit y, unspecified otitis media type H66.92 ; Morbid obesity, unspecified obesity type E66.01 ; Neck pain on left side M54.2 and Uncontrolled type 2 diabetes mellitus without complication, without long- term current use of insulin E11.65 [facility] [address] [place] [id number] [place] [address], [place] [id number] Apr, 2016 Anxiety F41.9 ; Anhedonia R45.84 ; Diffi culty sleeping G47.9 ; Type 2 diabetes mellitus with hyperglycemia, without long-term current use of insulin E11.65 ; control counseling Z30.9 ; BCP ( control pills) initiation Z30.011 and Mixed hyperlipidemia E78.2 [facility] [address] [place] [id number] [place] [address], [place] [id number] Oct, Diabetes type 2, uncontrolled E11.65 and Pure hypercholesterolemia E78.0 [place] [address] [address] August, [facility] [address] [id number] Jun, Diabetes type 2, uncontrolled E11.65 and Pure hypercholesterolemia E78.0 [facility] [address] [place] [id number] [place] [address], [place] [id number] Jun, Diabetes type 2, uncontrolled E11.65 [facility] [address] [address] Mar, [facility] [address] [place] [id number] [place] [address], [place] [id number] Mar, [facility] [address] [place] [id number] [place] [address], [place] [id number] Mar, Diabetes type 2, uncontrolled E11.65 [facility] [address] [place] [address], [place] [id number] Mar, [place] [address] [id number] WAY[place] [id number] August, Abdominal pain 789.00 and Frequency of u rination 788.41 [place] [address] [address] Jul, [facility] [address] [address] Jul, [facility] [address] [place] [id number] [place] [address], [place] [id number] Feb, [facility] [address] [id number] [address] [place] [address], [place] [address] Feb, [facility] [address] [id number] [place] [id number] Feb, [facility] [address] [id number] [address] [place] [address], [place] [address] Feb, [facility] [address] [id number] [address] [place] [address], [place] [address] Feb, [facility] [address] [id number] [address] [place] [address], [place] [address] Feb, [facility] [address] [id number] [place] [id number] Feb, [facility] [address] [id number] [address] [place] [address], [place] [address] Feb, [facility] [address] [id number] [place] [id number] Jan, [facility] [address] [id number] [address] [place] [address], [place] [address] Jan, [facility] [address] [id number] [place] [id number] Sep, [facility] [address] [id number] [address] [place] [address], [place] [address] Sep, [facility] [address] [id number] [place] [id number] August, [facility] [address] [id number] [address] [place] [address], [place] [address] August, [facility] [address] [id number] [address] [place] [address], [place] [address] Jul, [facility] [address] [id number] [place] [id number] Jul, [facility] [address] [id number] [place] [id number] Jul, [facility] [address] [id number] [place] [id number] Jul, [facility] [address] [id number] [address] [place] [address], [place] [address] Jul, [facility] [address] [facility] [id number] [address] [place] [address] Jul, [facility] [address] [id number] [place] [id number] Jun, [facility] [address] [id number] [address] [place] [address], [place] [address] Jun, [facility] [address] [id number] [place] [id number] May, [facility] [address] [facility] [id number] [address] [place] [address], [place] [address] May, [facility] [address] [id number] [place] [id number] Apr, [facility] [address] [facility] [id number] [address] [place] [address], [place] [address] Apr, [facility] [address] [id number] [address] [place] [address], [place] [address] Apr, [facility] [address] [id number] [place] [id number] Apr, [facility] [address] [facility] [id number] [address] [place] [address], [place] [address] Apr, [facility] [address] [id number] [place] [id number] Jan, [facility] [address] [id number] [address] [place] [address], [place] [address] Jan, [facility] [address] [id number] [place] [id number] Jan, [facility] [address] [id number] [place] [id number] Dec, [facility] [address] [id number] [place] [id number] Nov, [facility] [address] [facility] [id number] [place], [place] [address] Nov, [facility] [address] [facility] [id number] [address] [place] [address] Nov, [facility] [address] [facility] [id number] [place] [id number] Nov, [facility] [address] [facility] [id number] [place] [address] Nov, [facility] [address] [facility] [id number] [place] [address] Nov, [facility] [address] [facility] [id number] [place] [id number] Nov, IMMUNIZATIONS No Known Immunizations SOCIAL HISTORY Never Assessed REASON FOR VISIT 2 week follow up on Depression, states she is doing better. anaya Mcgarry PLAN OF CARE Activity Details Follow Up 4 Weeks Reason:CHM DM/low ba ck pain fu VITAL SIGNS Height 64 in 2017-01-17 Weight 290.6 lbs 2017-01-17 Temperature 98.4 degrees Fahrenheit 2017-01-17 Heart Rate 98 bpm 2017-01-17 Respiratory Rate 16 2017-01-17 BMI 49.88 kg/m2 2017-01-17 Blood pressure systolic 120 mmHg 2017-01-17 Blood pressure diastolic 72 mmHg 2017-01-17 MEDICATIONS Medication Instructions Dosage Frequency Start Date End Date Duration S tatus Cyclobenzaprine HCl 10 mg Orally Once a day 1 tablet as needed 24h Jan, Jan, 0 days Active Diclofenac Sodium 50 mg Orally 2 times a day 1 tablet with food or milk 12h Jan, Feb, 30 day(s) Active Glucophage 500 MG Orally Twice a day 2 tablet with meals 12h Apr, Active Januvia 50 mg Orally Once a day 1 tablets 24h Apr, Active Abilify 10 mg Orally Once a day at bedtime 1 tablet Dec, Active Simvastatin 20 mg Orally Once a day 1 tablet in the evening 24h Dec, Active Ortho-Cyclen (28) 0.25-35 MG-MCG orally daily take 1 tablet by Oral route 1 time per day 24h Feb, Active RESULTS No Results PROCEDURES Procedure Date Ordered Result Body Site EKG, TRACING (IN-HOUSE) 2017-01-17 SR ELECTROCARDIOGRAM, TRACING Jan 17, 2017 ASSAY OF MAGNESIUM Jan 17, 2017 VENIPUNCT, ROUTINE* Jan 17, 2017 COMPLETE CBC W/AUTO DIFF WBC Jan 17, 2017 COMPREHEN METABOLIC PANEL Jan 17, 2017 ASSAY THYROID STIM HORMONE Jan 17, 2017 LIPID PANEL Jan 17, 2017 INSTRUCTIONS MEDICATIONS ADMINISTERED No Known [...] work, hyp ertension, was seen at [facility] 04/09/16
--- OUTSIDE RECORDS SUMMARY | 2019-11-08 17:53 | XMS REPORT ---
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 without prior episode F32.2 Active 41100939 Problem Pure hypercholesterolemia, unspecified E78.00 Active 431313117 Problem Irritability R45.4 Active 6235525 7 Problem Moderate single current episode of major depressive disord er F32.1 Active 99860396 Problem Body mass index (BMI) of 45.0-49.9 in adult Z68.42 Active 670256820 Problem Other obesity due to excess calories E66.09 Active 493569061 Problem Type 2 diabetes mellitus wit h hyperglycemia, without long-term current use of insulin E11.65 Active 33662510 Problem Anxiety F41.9 Active 59346405 Problem Diabetes type 2, uncontrolled E11.65 Active 091121421 Problem Anhedonia R45.84 Active 29364832 Problem Pure hypercholesterolemia E78.0 Acti ve 879465520 Problem Mixed hyperlipidemia E78.2 Active 736318864 ALLERGIES No Information ENCOUNTERS Encounter Location Date Diagnosis [facility] [id number] [place] [id number] August, [facility] [address] [facility] [id number] [address] [place] [address] August, [facility] [address] [id number] [id number] August, [facility] [address] [facility] [id number] [address] [place] [address] August, [facility] [address] [facility] [id number] [address] [place] [address] Jul, Current severe episode of ma 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 without prior episode F32.2 [place] [id number] [place] [address], [place] [id number] Jun, Mixed hyperlipidemia E78.2 ; Diabetes ty pe 2, uncontrolled E11.65 ; BMI 45.0- 49.9, adult Z68.42 ; Stressful life event affecting family Z63.79 ; BCP ( control pills) initiation Z30.011 and Anxiety F41.9 [place] [id number], [place] [id number] May, Diabetes type 2, uncontrolled E11.65 ; M ixed hyperlipidemia E78.2 ; Current severe episode of major depressive disorder without psychotic features without prior episode F32.2 ; Vaginal discharge N89.8 ; Vision changes H53.9 and BMI 45.0-49.9, adult Z68.42 [place] [id number], [place] [id number] May, Type 2 diabetes mellitus with hyperglyce mere, without long-term current use of insulin E11.65 and Mixed hyperlipidemia E78.[address] [id number] [place] [id number] May, Type 2 diabetes mellitus with hyperglyce mere, without long-term current use of insulin E11.65 [facility] [address] [id number] [id number] May, Dental examination Z01.20 [facility] [address] [id number] [id number] May, Dental examination Z01.20 [facility] [address] [id number] [id number] Apr, Dental examination Z01.20 [address], [place] [id number] Jan, Mixed hyperlipidemia E78.2 and Pure hype rcholesterolemia, unspecified E78.00 [facility] [id number] [place] [id number] Jan, Mid-back pain, acute M54.9 ; Anxiety [...] adult Z68.42 and BMI 45.0-49.9, adult Z68.42 [address] [place] [address], [place] [id number] Dec, Diabetes type 2, uncontrolled E11.65 ; M orbid obesity, unspecified obesity type E66.01 ; Mixed hyperlipidemia E78.2 ; Moderate single current episode of major depressive disorder F32.1 ; Irritability R45.4 ; Dysuria R30.0 and BCP ( control pills) initiation Z30.011 [facility] [address] [facility] [id number] [place], [place] [id number] Nov, Dental examination Z01.20 [address]100[facility], [place] [id number] Nov, Right wrist pain M25.531 [address] [place] [address], [place] [id number] Jul, BCP ( control pills) initiation Z30 .011 [facility] [address]100[facility], [place] [id number] Jun, Left otitis media, unspecified chronicit y, unspecified otitis media type H66.92 ; Morbid obesity, unspecified obesity type E66.01 ; Neck pain on left side M54.2 and Uncontrolled type 2 diabetes mellitus without complication, without long- term current use of insulin E11.65 [facility] [address] [place] [address], [place] [id number] Apr, Anxiety F41.9 ; Anhedonia R45.84 ; Diffi culty sleeping G47.9 ; Type 2 diabetes mellitus with hyperglycemia, without long-term current use of insulin E11.65 ; control counseling Z30.9 ; BCP ( control pills) initiation Z30.011 and Mixed hyperlipidemia E78.2 [facility] [address] [place], [place] [address], [place] [id number] Oct, Diabetes type 2, uncontrolled E11.65 and Pure hypercholesterolemia E78.0 [facility] [address] [address] August, [facility] [address] [place] [id number] [place] [address], [place] [id number] Jun, Diabetes type 2, uncontrolled E11.65 and Pure hypercholesterolemia E78.0 [facility] [address] [place] [address], [place] [id number] Jun, Diabetes type 2, uncontrolled E11.65 [facility] [address] [place] [id number] [address] [place] [address] Mar, [facility] [address] [place] [id number] [place] [id number] Mar, [facility] [address] [place] [id number] [place] [address], [place] [id number] Mar, Diabetes type 2, uncontrolled E11.65 [facility] [address] [place] [address], [place] [id number] Mar, [place] [address] [facility] [address] [id number] [id number] August, Abdominal pain 789.00 and Frequency of u rination 788.41 [facility] [address] [address] Jul, [facility] [address] [address] Jul, [facility] [address] [place] [address], [place] [id number] Feb, [facility] [address] [id number] [address] [place] [address], [place] [address] Feb, [facility] [address] [id number] [place] [id number] Feb, [facility] [address] [id number] [address] [place] [address], [place] [address] Feb, [facility] [address] [id number] [address] [place] [address], [place] [address] Feb, [facility] [address] [id number] [address] [place] [address], [place] [address] Feb, [facility] [address] [id number] [place] [id number] Feb, [facility] [address] [facility] [id number] [address] [place] [address], [place] [address] Feb, [facility] [address] [id number] [place], [place] [id number] Jan, [facility] [address] [id number] [address] [place] [address], [place] [address] Jan, [facility] [address] [id number] [place], [place] [id number] Sep, [facility] [address] [facility] [id number] [address] [place] [address], [place] [address] Sep, [facility] [address] [id number] [place] [id number] August, [facility] [address] [id number] [address] [place] [address], [place] [address] August, [facility] [address] [id number] [address] [place] [address], [place] [address] Jul, [facility] [address] [id number] [place], [place] [id number] Jul, [facility] [address] [id number] [place] [id number] Jul, [facility] [address] [id number] [place], [place] [id number] Jul, [facility] [address] [id number] [address] [place] [address], [place] [address] Jul, [facility] [address] [id number] [address] [place] [address], [place] [address] Jul, [facility] [address] [id number] [place], [place] [id number] Jun, [facility] [address] [id number] [address] [place] [address], [place] [address] Jun, [facility] [address] [id number] [place] [id number] May, [facility] [address] [id number] [address] [place] [address], [place] [address] May, [facility] [address] [id number] [place] [id number] Apr, [facility] [address] [id number] [address] [place] [address] Apr, [facility] [address] [id number] [address] [place] [address], [place] [address] Apr, [facility] [address] [id number] [place], [place] [id number] Apr, [facility] [address] [id number] [address] [place] [address], [place] [address] Apr, [facility] [address] [id number] [place] [id number] Jan, [facility] [address] [id number] [address] [place] [address], [place] [address] Jan, [facility] [address] [id number] [place], [place] [id number] Jan, [facility] [address] [id number] [place]NA M, [place] [id number] Dec, [facility] [address] [id number] [place], [place] [id number] Nov, [facility] [address] [facility] [id number] [place], [place] [address] Nov, [facility] [address] [facility] [id number] [address] [place] [address] Nov, [facility] [address] [facility] [id number] [place] [id number] Nov, [facility] [address] [facility] [id number] [address] [place] [address] Nov, [facility] [address] [facility] [id number] [address] [place] [address] Nov, [facility] [address] [facility] [id number] [place], [place] [id number] Nov, IMMUNIZATIONS No Known Immunizations SOCIAL HISTORY Never Assessed REASON FOR VISIT lab results/medication/lab deferred PLAN OF CARE VITAL SIGNS MEDICATIONS Medication [...] at work, hyp ertension, was seen at [facility] 04/09/16
--- OUTSIDE RECORDS SUMMARY | 2019-11-08 17:53 | XMS REPORT | Continuity of Care Document ---
Author Organization Unknown Address Unknown Phone Unavailable Allergies Active Description Code Type Severity Reaction Onset Reported/Identified Relationship to Patient Clinical Status Yes No Known Drug Allergies [id number] Drug Allergy Unknown N/A 11/08/2019 Medications There is no data. Problems There is no data. Procedures There is no data. Results Test Result Range THYROID ANALYZER - 01/17/17 13:09 TSH 1.43 mIU/L NRG TSH - 06/01/17 11:57 TSH 1.67 mIU/L NRG A1C - 06/01/17 11:57 HEMOGLOBIN A1c 10.2 % of total Hgb <5.7 Complete urinalysis with reflex to cultu re - 11/08/19 13:58 Urine color determination YELLOW NRG Urine clarity determination CLEAR NR G Urine pH measurement by test strip 6.0 5-9 Specific gravity of urine by test strip 1.020 1.016-1.022 Urine protein assay by test strip, semi-quantitative NEGATIVE NEGATIVE Urine glucose detection by automated test strip NE GATIVE NEGATIVE Erythrocytes detection in urine sediment by light micr oscopy NEGATIVE NEGATIVE Urine ketones detection by automated test strip NE GATIVE NEGATIVE Urine nitrite detection by test strip NEGATIVE NEGATIVE Urine total bilirubin detection by test strip NEGA TIVE NEGATIVE Urine urobilinogen measurement by automated test strip (mass/volume) 0.2 mg/dL < = 1.0 Urine leukocyte esterase detection by dipstick NEG ATIVE NEGATIVE Automated urine sediment erythrocyte cou nt by microscopy (number/high power field) NONE NRG Automated urine sediment leukocyte count by microscopy (number/high power field) NONE NRG Bacteria detection in urine sediment by light microsco py FEW NRG Squamous epithelial cells detection in u rine sediment by light microscopy 10-25 NRG Crystals detection in urine sediment by light microsco py NONE NRG Casts detection in urine sediment by light microscopy NONE NRG Mucus detection in urine sediment by light microscopy NEGATIVE NRG Complete urinalysis with reflex to culture NO NRG Yeast detection in urine sediment by light microscopy FEW NRG Complete blood count (CBC) with automate d white blood cell (WBC) differential - 11/08/19 14:09 Blood leukocytes automated count (number/volume) 13.9 10*3/uL 4.3-11.0 Blood erythrocytes automated count (number/volume) 4.61 10*6/uL 4.35-5.85 Venous blood hemoglobin measurement (mass/volume) 14.2 g/dL 11.5-16.0 Blood hematocrit (volume fraction) 41 % 35-52 Automated erythrocyte mean corpuscular volume 89 [ foz_us] 80-99 Automated erythrocyte mean corpuscular h emoglobin (mass per erythrocyte) 31 pg 25-34 Automated erythrocyte mean corpuscular h emoglobin concentration measurement (mass/volume) 35 g/dL 32-36 Automated erythrocyte distribution width ratio 13. 7 % 10.0- 14.5 Automated blood platelet count (count/volume) 429 10*3/uL 130-400 Automated blood platelet mean volume measurement 9.6 [foz_us] 7.4-10.4 Automated blood neutrophils/100 leukocytes 62 % 42-75 Automated blood lymphocytes/100 leukocytes 28 % 12-44 Blood monocytes/100 leukocytes 7 % 0-12 Automated blood eosinophils/100 leukocytes 2 % 0-10 Automated blood basophils/100 leukocytes 0 % 0-10 Blood neutrophils automated count (number/volume) 8.7 10*3 1.8-7.8 Blood lymphocytes automated count (number/volume) 3.9 10*3 1.0-4.0 Blood monocytes automated count (number/volume) 1. 0 10*3 0.0-1.0 Automated eosinophil count 0.3 10*3/uL 0 .0-0.3 Automated blood basophil count (count/volume) 0.0 10*3/uL 0.0-0.1 Comprehensive metabolic panel - 11/08/19 14:09 Serum or plasma sodium measurement (moles/volume) 136 mmol/L 135-145 Serum or plasma potassium measurement (moles/volume) 4.4 mmol/L 3.6-5.0 Serum or plasma chloride measurement (moles/volume) 100 mmol/L 98-107 Carbon dioxide 22 mmol/L 21-32 Serum or plasma anion gap determination (moles/volume) 14 mmol/L 5-14 Serum or plasma urea nitrogen measurement (mass/volume ) 9 mg/dL 7-18 Serum or plasma creatinine measurement (mass/volume) 0.76 mg/dL 0.60-1.30 Serum or plasma urea nitrogen/creatinine mass ratio 12 NRG Serum or plasma creatinine measurement w ith calculation of estimated glomerular filtration rate > NRG Serum or plasma glucose measurement (mass/volume) 268 mg/dL 70-105 Serum or plasma calcium measurement (mass/volume) 9.6 mg/dL 8.5-10.1 Serum or plasma total bilirubin measurement (mass/volu me) 0.2 mg/dL 0.1-1.0 Serum or plasma alkaline phosphatase jovita surement (enzymatic activity/volume) 76 U/L 40-136 Serum or plasma aspartate aminotransfera se measurement (enzymatic activity/volume) 12 U/L 5-34 Serum or plasma alanine aminotransferase measurement (enzymatic activity/volume) 22 U/L 0-55 Serum or plasma protein measurement (mass/volume) 7.5 g/dL 6.4-8.2 Serum or plasma albumin measurement (mass/volume) 4.1 g/dL 3.2-4.5 CALCIUM CORRECTED 9.5 mg/dL 8.5-10.1 Serum or plasma choriogonadotropin (preg nish test) detection - 11/08/19 14:09 Serum or plasma choriogonadotropin ( test) de tection NEGATIVE NEGATIVE Serum or plasma C reactive protein measu rement (mass/volume) - 11/08/19 14:09 Serum or plasma C reactive protein measurement (mass/v olume) 2.66 mg/dL 0.00-0.50 Erythrocyte sedimentation rate by zohreh gren method - 11/08/19 14:09 Erythrocyte sedimentation rate by westergren method 43 mm 0- 20 Encounters ACCT No. Visit Date/Time Discharge Status Pt. Type Provider Facility Loc./Unit Complaint [id number] 07/18/2019 13:40:00 07/18/2019 23:59:5 9 [facility] Outpatient GARY PHOENIX [facility] [address] [id number] 06/01/2017 11:40:00 Document Registration [id number] 01/17/2017 12:20:00 Document Registration [id number] 11/08/2019 13:53:00 020 16:00:00 DIS Emergency JOSH LINARES APRN [facility] ER ABD PAIN;BLOOD IN STOOL [id number] 02/15/2013 11:46:00 013 23:59:59 [facility] Outpatient
--- OUTSIDE RECORDS SUMMARY | 2019-11-08 17:53 | XMS REPORT ---
Author Author Jennifer PHOENIX [facility] Address [address] [place] [address] Care Team Providers Care Securities Underwriter Name Role Phone GARY PHOENIX Unavailable [phone] PROBLEMS Type Condition ICD9-CM Code WLR67-QV Code Onset Dates Condition S tatus SNOMED Code Problem Screening for malignant neoplasm of the cervix V76.2 Active 097334509 Problem Candidiasis of vulva and vagina 112.1 Active 45205006 Problem Unspecified breast screening V76.10 A ctive 280547301 Problem Frequency of urination 788.41 Active 232076890 Problem Screening examination for venereal disease V74.5 Active 782133278 Problem Diabetes type 2, uncontrolled E11.65 Active 885182873 Problem Anxiety F41.9 Active 36015535 Problem Pure hypercholesterolemia E78.0 Acti ve 289224576 Problem Morbid obesity, unspecified obesity type E66.01 Active 014166453 Problem Uncontrolled type 2 diabetes mellitus without complication, without long-term current use of insulin E11.65 Active 355451254 Problem Hirsutism 704.1 Active 119457255 Problem Headache 784.0 Active 06847915 Problem Dietary surveillance and counseling V65.3 Active 664717753 Problem Mixed hyperlipidemia E78.2 Active 936572909 Problem Anhedonia R45.84 Active 39062701 Problem Type 2 diabetes mellitus wit h hyperglycemia, without long-term current use of insulin E11.65 Active 75108097 Problem Difficulty sleeping G47.9 Active 381300625 Problem Nondependent tobacco use disorder 305.1 Active 440040350 Problem Anxiety state, unspecified 300.00 Act karena 971804025 Problem Other disorder of menstruati on and other abnormal bleeding from female genital tract 626.8 Active 986949280 Problem Depressive disorder, not elsewhere classified 311 Active 47179196 Problem Pure hypercholesterolemia 272.0 Acti ve 671428739 Problem Polycystic ovaries 256.4 Active 6 6642331 Problem Obesity, unspecified 278.00 Active 405957865 Problem Other and unspecified hyperlipidemia 272.4 Active 05776109 ALLERGIES Substance Reaction Event Type Date Status N.K.D.A. Unknown Non Drug Allergy Apr, Unknown SOCIAL HISTORY No smoking Hx information available PLAN OF CARE Activity Details Follow Up 3 Weeks Reason:anxiety, 3M C HM DM VITAL SIGNS Height 64 in 2016-04-12 Weight 295.5 lbs 2016-04-12 Temperature 97.4 degrees Fahrenheit 2016-04-12 Heart Rate 86 bpm 2016-04-12 Respiratory Rate 16 2016-04-12 BMI 50.72 kg/m2 2016-04-12 Blood pressure systolic 124 mmHg 2016-04-12 Blood pressure diastolic 84 mmHg 2016-04-12 MEDICATIONS Medication Instructions Dosage Frequency Start Date End Date Duration S tatus Glucophage 500 MG Orally Twice a day 2 tablet with meals 12h Apr, 30 day(s) Active Januvia 50 mg Orally Once a day 1 tablets 24h Apr, 9 0 days Active Escitalopram Oxalate 10 mg Orally Once a day 1 tablet 24h Apr, 17 Active Ortho-Cyclen (28) 0.25-35 MG-MCG orally daily take 1 tablet by Oral route 1 time per day 24h Feb, 0 Active Klonopin 0.5 MG Orally Twice a day as needed for anxiety until lexipro effective 1 tablet Apr, 30 days Active Simvastatin 40 MG orally daily Take 1 tablet by Oral route 1 time p er day 24h August, 0 Active RESULTS Name Result Date Reference Range A1C (IN HOUSE) 2016-04-12 A1C IN HOUSE 7.8 4.3 - 5.6 % Previous A1c 6.7 Lot [id number] Exp date 01/2018 MICROALBUMIN, URINE (IN HOUSE) 2016-04-12 MICROALBUMIN abnormal Lot # [id number] Exp date 02/2017 Clarity clear Color yellow ALB 80mg/L CRE 300 mg/dL A:C (IN HOUSE) 30-300mg/g Control normal Control Lot # Exp date TEST, URINE (IN HOUSE) 2016-04-12 RESULTS neg Lot # [id number] Control + Exp date 11/07/17 THYROID ANALYZER 2016-04-12 TSH 2.490 0.450-4.500 CBC 2016-04-12 WBC 11.5 3.4-10.8 RBC 4.81 3.77-5.28 Hemoglobin 14.2 11.1-15.9 Hematocrit 42.4 34.0-46.6 MCV 88 79-97 MCH 29.5 26.6-33.0 MCHC 33.5 31.5-35.7 RDW 13.7 12.3-15.4 Platelets 372 150-379 Neutrophils 56 Lymphs 32 Monocytes 8 Eos 3 Basos 0 Neutrophils (Absolute) 6.5 1.4-7.0 Lymphs (Absolute) 3.7 0.7-3.1 Monocytes(Absolute) 0.9 0.1-0.9 Eos (Absolute) 0.3 0.0-0.4 Baso (Absolute) 0.0 0.0-0.2 Immature Granulocytes 1 Immature Grans (Abs) 0.1 0.0-0.1 MICROALBUMIN/CREATININE RATIO, URINE 2016-04-12 Creatinine, Urine 202.6 Not Estab. Microalbumin, Urine 15.1 Not Estab. Microalb/Creat Ratio 7.5 0.0-30.0 LIPID PANEL 2016-04-12 Cholesterol, Total 381 100-199 Triglycerides 341 0-149 HDL Cholesterol 28 >39 VLDL Cholesterol Pollo 68 5-40 LDL Cholesterol Calc 285 0-99 CMP 2016-04-12 Glucose, Serum 150 65-99 BUN 13 6-20 Creatinine, Serum 0.55 0.57-1.00 eGFR If NonAfricn Am 125 >59 eGFR If Africn Am 145 >59 BUN/Creatinine Ratio 24 8-20 Sodium, Serum 139 134-144 Potassium, Serum 4.3 3.5-5.2 Chloride, Serum 99 96-106 Carbon Dioxide, Total 25 18-29 Calcium, Serum 8.9 8.7-10.2 Protein, Total, Serum 6.8 6.0-8.5 Albumin, Serum 4.0 3.5-5.5 Globulin, Total 2.8 1.5-4.5 A/G Ratio 1.4 1.1-2.5 Bilirubin, Total <0.2 0.0-1.2 Alkaline Phosphatase, S 99 39-117 AST (SGOT) 12 0-40 ALT (SGPT) 19 0-32 PROCEDURES Procedure Date Ordered Related Diagnosis Body Site MICROALBUMIN, QUANTITATIVE Apr 12, 2016 GLYCATED HEMOGLOBIN TEST Apr 12, 2016 MICROALBUMIN, SEMIQUANT Apr 12, 2016 COMPLETE CBC W/AUTO DIFF WBC Apr 12, 2016 VENIPUNCT, ROUTINE* Apr 12, 2016 Office Visit, Est Pt., Level 4 Apr 12, 2016 ASSAY OF URINE CREATININE Apr 12, 2016 LIPID PANEL Apr 12, 2016 COMPREHEN METABOLIC PANEL Apr 12, 2016 URINE TEST Apr 12, 2016 ASSAY THYROID STIM HORMONE Apr 12, 2016 IMMUNIZATIONS No Known Immunizations
== END 2019-11-08 16:00 | disposition home or self-care (01) ==
LOC: EDUNIT# 13:51 → ER 13:53
DX: K92.1 Melena (principal); R10.32 Left lower quadrant pain; F17.210 Nicotine dependence, cigarettes, uncomplicated
CPT/HCPCS: 36415; 74177; 80053; 81000; 84703; 85025; 85652; 86141

== ENCOUNTER → 2020-07-24 | Outpatient (CLI) | payer OTHER ==
[~2020-07-24] MED LIST: DICY20TA10 PO; DOCU-143 PO
--- NOTE | 2020-07-24 12:18 | Diagnostic Imaging Report ---
PROCEDURE: Pelvic comp/transvaginal sonogram. TECHNIQUE: Complete transabdominal and transvaginal pelvic ultrasound was performed. In addition, limited pelvic Doppler was performed. INDICATION: Polycystic ovarian syndrome and pelvic pain. Study is significantly compromised due to patient large body habitus. Uterus measures 5.5 x 2.7 x 2.7 cm. Endometrium is 3 mm in thickness. No myometrial mass is detected. Ovaries could not be visualized. There is no adnexal mass or free fluid. IMPRESSION: Limited study due to patient body habitus. The ovaries could not be visualized. No other significant abnormality is seen. Dictated by: Dictated on workstation # [id number]
== END ==
LOC: RAD 10:15
PROVIDERS: ATTEND Obstetrics & Gynecology
DX: E28.2 Polycystic ovarian syndrome (principal)
CPT/HCPCS: 76830; 76856

== ENCOUNTER → 2020-11-20 | Outpatient (CLI) | payer OTHER ==
--- NOTE | 2020-11-20 17:00 | Diagnostic Imaging Report ---
INDICATION: Contour abnormality in the right breast. No prior studies are available for comparison. Unilateral right 2-D and 3-D diagnostic mammography was performed with CAD. BB markers placed at the area of skin abnormality in the upper outer right breast. Scattered fibroglandular densities are noted. No dominant mass or malignant-appearing microcalcifications are seen. Axillae are unremarkable. IMPRESSION: BI-RADS 0 No mammographic abnormalities detected to suggest neoplasm. Even so, sonographic interrogation of the area of skin contour abnormality is recommended and will be performed today. ACR BI-RADS Category 0: Incomplete. (Needs additional imaging evaluation). Result letter will be mailed to the patient. Note: At least 10% of breast cancer is not imaged by mammography. Dictated by: Dictated on workstation # [id number]
--- NOTE | 2020-11-20 17:01 | Diagnostic Imaging Report ---
INDICATION: Right breast lump. Sonographic interrogation of the area of questionable lump in the upper-outer right breast was performed. No sonographic abnormality is seen. No solid or cystic mass is detected. IMPRESSION: BI-RADS Category 1 No sonographic abnormality is detected. ACR BI-RADS Category 1: Negative. Dictated by: Dictated on workstation # [id number]
== END ==
LOC: RAD 09:15
PROVIDERS: ATTEND Obstetrics & Gynecology
DX: N63.10 Unspecified lump in the right breast, unspecified quadrant (principal)
CPT/HCPCS: 76642; 77065; G0279

== ENCOUNTER 2021-10-05 13:42 | Emergency (ER) | payer OTHER ==
[~2021-10-05] VITALS: Ht 162.5 cm; Wt 115.6 kg
[~2021-10-05 13:42] MED LIST changes: +DICY20TA PO; -DICY20TA10 PO
[2021-10-05] MEDS ORDERED: NS IV 1000 ML 1,000 ML IV STA (14:16)
--- NOTE | 2021-10-05 14:21 | ED Fall/Injury ---
General Chief Complaint: Trauma-Non Activation Stated Complaint: FELL HIT FACE Nursing Triage Note: pt amb to ed by pov with c/o fall. pt reports she has been dizzy over the last couple of days, fell on a curb at the gas station, hit face on cement post. denies loc. reports nose bleed on scene, teeth through bottom lip. bleeding controlled at this time. abrasions noted to L knee. redness and edema noted to nose. reports ems on scene checked her blood sugar and it was 211. pt normally runs 180-200. Source: patient Exam Limitations: no limitations (EDGAR LEMA) History of Present Illness Date Seen by Provider: Oct 05, 2021 Time Seen by Provider: 14:18 Initial Comments Patient is a 36-year-old female presents ED with facial pain, neck pain and left knee pain. Patient states 30 minutes ago she was walking out of the convenience store after getting something to eat as she felt dizzy lightheaded and fell hitting the pole outside the convenient store. She states she missed a curb during this episode. She states she hit the front part of her face resulting in nose pain and laceration to her lower lip and inside her gums. No loss of consciousness or on blood thinners. She believes her tooth went through her gums. Bleeding controlled with direct pressure. No loss of conscious or blood thinners. She reports some neck tightness and left knee pain pain with walking. She does have notable abrasions to the left knee. She states she is up-to-date on her tetanus within the past 5 years. She reports some intermittent dizziness and lightheadedness over the past 2 days. She states she feels dehydrated. Denies any chest pain, cough, shortness of breath, abdominal pain, middle lower back pain, bowel or urine incontinence, saddle paresthesia. (EDGAR LEMA) Allergies and Home Medications Allergies Coded Allergies: No Known Drug Allergies (Unverified , 11/08/19) Patient Home Medication List Home Medication List Reviewed: Yes (EDGAR LEMA) Clindamycin HCl (Clindamycin HCl) 300 Mg Capsule, 300 MG PO TID Prescribed by: PATO LEYVA on 10/05/21 1640 Dicyclomine HCl (Dicyclomine HCl) 20 Mg Tablet, 20 MG PO TID Prescribed by: JOSH LINARES on 11/08/19 1551 Docusate Sodium (Colace) 100 Mg Capsule, 100 MG PO DAILY Prescribed by: JOSH LINARES on 11/08/19 1551 Hydrocodone/Acetaminophen (Hydrocodone-Acetamin 5-325 mg) 5 Mg-325 Mg Tablet, 1 TAB PO Q4H PRN for PAIN-MODERATE (5-7) Prescribed by: PATO LEYVA on 10/05/21 1640 Discontinued Medications Clindamycin HCl (Clindamycin HCl) 300 Mg Capsule, 300 MG PO TID Prescribed by: PATO LEYVA on 10/05/21 1612 Hydrocodone/Acetaminophen (Hydrocodone-Acetamin 5-325 mg) 5 Mg-325 Mg Tablet, 1 TAB PO Q4H PRN for PAIN-MODERATE (5-7) Prescribed by: PATO LEYVA on 10/05/21 1540 Review of Systems Review of Systems Constitutional: No chills, No diaphoresis Eyes: Denies Blurred Vision, Denies Drainage, Denies Pain, Denies Photophobia Ears, Nose, Mouth, Throat: denies ear pain, denies ear discharge; mouth pain, mouth swelling Respiratory: No cough, No dyspnea on exertion, No short of breath Cardiovascular: No palpitations Gastrointestinal: No abdominal pain, No diarrhea, No nausea, No vomiting Musculoskeletal: No back pain; joint pain, muscle pain, muscle stiffness Skin: other (abrasion) (EDGAR LEMA) All Other Systems Reviewed Negative Unless Noted: Yes (EDGAR LEMA) Past Msilogk-Wdaawp-Mdmzmt Hx Patient Social History Tobacco Use?: Yes Tobacco type used: Cigarettes Smoking Status: Current Everyday Smoker Use of E-Cig and/or Vaping dev: No Substance use?: No Alcohol Use?: No Pt feels they are or have been: No (EDGAR LEMA) Immunizations Up To Date Influenza Vaccine Up-to-Date: Yes; Up-to-Date First/Initial COVID19 Vaccinat: 05/31 Second COVID19 Vaccination [place]: 06/28 Third COVID19 Vaccination Date: 05/01 COVID19 Vaccine Reimbursement Liaison: [facility] (EDGAR LEMA) Seasonal Allergies Seasonal Allergies: No (EDGAR LEMA) Past Medical History Surgery/Hospitalization HX: DM2, high cholesterol Tonsillectomy Respiratory: No Cardiac: Yes High Cholesterol Neurological: No Genitourinary: No Gastrointestinal: No Musculoskeletal: No Endocrine: Yes Diabetes, Non-Insulin dep HEENT: No Cancer: No Psychosocial: No Integumentary: No Blood Disorders: No (EDGAR LEMA) Physical Exam Vital Signs Vital Signs - First Documented (AMY FIELDS MD) Vital Signs Capillary Refill : Less Than 3 Seconds (EDGAR LEMA) Height, Weight, BMI Height: '" Weight: lbs. oz. kg; 43.00 BMI Method: General Appearance: WD/WN, no apparent distress HEENT: other (Nasal bridge tenderness. 1 cm superficial laceration below the lower lip with superficial laceration to the gums of the lower lip. No obvious dental tenderness. No naris bleeding) Neck: full range of motion, supple, other (Bilateral cervical paraspinal muscle tenderness. Normal active range of motion) Cardiovascular: regular rate, rhythm, no edema, no gallop Respiratory: chest non-tender, lungs clear, normal breath sounds, no accessory muscle use Gastrointestinal: normal bowel sounds, non tender, soft, no organomegaly Back: normal inspection, no vertebral tenderness Extremities: other (Abrasion to left anterior knee with swelling. Normal active range of motion. No laxity with valgus or varus stress. 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, no motor/sensory deficits, normal mood/affect, oriented x 3 (EDGAR LEMA) Progress/Results/Core Measures Results/Orders Lab Results Laboratory Tests Test 10/05/21 14:30 Range/Units White Blood Count 16.3 H 4.3-11.0 10^3/uL Red Blood Count 4.96 3.80-5.11 10^6/uL Hemoglobin 15.3 11.5-16.0 g/dL Hematocrit 45 35-52 % Mean Corpuscular Volume 91 80-99 fL Mean Corpuscular Hemoglobin 31 25-34 pg Mean Corpuscular Hemoglobin Concent 34 32-36 g/dL Red Cell Distribution Width 13.8 10.0-14.5 % Platelet Count 379 130-400 10^3/uL Mean Platelet Volume 10.0 9.0-12.2 fL Immature Granulocyte % (Auto) 1 % Neutrophils (%) (Auto) 70 42-75 % Lymphocytes (%) (Auto) 22 12-44 % Monocytes (%) (Auto) 6 0-12 % Eosinophils (%) (Auto) 1 0-10 % Basophils (%) (Auto) 0 0-10 % Neutrophils # (Auto) 11.4 H 1.8-7.8 10^3/uL Lymphocytes # (Auto) 3.5 1.0-4.0 10^3/uL Monocytes # (Auto) 1.0 0.0-1.0 10^3/uL Eosinophils # (Auto) 0.2 0.0-0.3 10^3/uL Basophils # (Auto) 0.1 0.0-0.1 10^3/uL Immature Granulocyte # (Auto) 0.2 H 0.0-0.1 10^3/uL Neutrophils % (Manual) 69 % Lymphocytes % (Manual) 27 % Monocytes % (Manual) 4 % Blood Morphology Comment NORMAL Sodium Level 135 135-145 MMOL/L Potassium Level 4.2 3.6-5.0 MMOL/L Chloride Level 100 98-107 MMOL/L Carbon Dioxide Level 21 21-32 MMOL/L Anion Gap 14 5-14 MMOL/L Blood Urea Nitrogen 14 7-18 MG/DL Creatinine 0.79 0.60-1.30 MG/DL Estimat Glomerular Filtration Rate 99 BUN/Creatinine Ratio 18 Glucose Level 211 H 70-105 MG/DL Calcium Level 9.7 8.5-10.1 MG/DL Corrected Calcium 9.5 8.5-10.1 MG/DL Total Bilirubin 0.3 0.1-1.0 MG/DL Aspartate Amino Transf (AST/SGOT) 17 5-34 U/L Alanine Aminotransferase (ALT/SGPT) 22 0-55 U/L Alkaline Phosphatase 98 40-136 U/L Total Protein 7.9 6.4-8.2 GM/DL Albumin 4.2 3.2-4.5 GM/DL (AMY FIELDS MD) Medications Given in ED Current Medications Medications Dose Ordered Sig/Sondra Route Start Time Stop Time Status Last Admin Dose Admin Acetaminophen/ Hydrocodone Bitart 1 ea ONCE ONCE PO 10/05/21 15:45 10/05/21 15:46 DC 10/05/21 15:56 1 EA (AMY FIELDS MD) Vital Signs/I&O 10/05/21 10/05/21 10/05/21 13:57 13:57 15:57 Temp 36.6 36.6 Pulse 105 103 89 Resp 18 18 16 B/P (MAP) 121/82 (95) 121/82 (95) 123/85 Pulse Ox 96 96 96 O2 Delivery Room Air Room Air Room Air (AMY FIELDS MD) Blood Pressure Mean: 95 Departure Communication (PCP) Patient states she started feeling dizzy today and lost her balance and miss the curb at the gas station hitting her face. No loss of consciousness. GCS 15. She states she is been dizzy for the past 2 days. History of similar symptoms when she feels like she has not eaten. Patient on arrival complain of facial pain. She has a small superficial laceration below her lip with skin approximated. No adipose involvement. Dermabond was placed over this area. Inner mucosal lining involvement of the lower lip which does not require sutures at this time. No severe dental tenderness but she has some upper and lower dental discomfort. Patient CT scan of her head and cervical neck was negative for fracture. abrasion of the left knee was negative for fracture. Able to ambulate. She has no current chest pain, shortness of breath, vomiting, focal neural deficits. She denies loss of consciousness, seizure-like activity or syncopal episode. She was given a liter fluid with reassuring lab work with slightly elevated white blood count. CT scan of the face shows a bony irregularity and soft tissue swelling associate with the anterior maxillary spine inferonasal suggesting possible fracture. Nasal bones and bony nasal septum intact. Other remaining facial bones intact. Patient was given IV pain medication. Due to some gum and dental involvement will discharge with clindamycin prophylactically. Allergic to penicillins. Discharged with pain medication. ENT outpatient follow-up and dental outpatient follow-up. If any worsening symptoms return back to ED for further evaluation. Patient agrees with plan of action (EDGAR LEMA) Impression Primary Impression: Facial fracture Disposition: 01 HOME, SELF-CARE Condition: Stable Departure-Patient Inst. Decision time for Depature: 15:37 (EDGAR LEMA) Referrals: LANETTE MENJIVAR MD, BENJAMEN H MD (PCP/Family) Primary Care Physician Patient Instructions: Facial Fracture Add. Discharge Instructions: Continue apply Neosporin to the wound to the lower lip. ENT outpatient follow- up for facial fracture. Pain medication as needed. All discharge instructions reviewed with patient and/or family. Voiced understanding. Scripts Hydrocodone/Acetaminophen (Hydrocodone-Acetamin 5-325 mg) 5 Mg-325 Mg Tablet 1 TAB PO Q4H PRN for PAIN-MODERATE (5-7), #8 TAB Prov: DEGAR LEMA 10/05/21 Clindamycin HCl (Clindamycin HCl) 300 Mg Capsule 300 MG PO TID for 7 Days, #21 CAP Prov: EDGAR LEMA 10/05/21 Work/School Note: Work Release Form Date Seen in the Emergency Department: Oct 05, 2021 Return to Work: Oct 10, 2021 ATTENDING PHYSICIAN NOTE: I was physically present as attending physician in the emergency department during the care of this patient, but I was not directly involved in the decision making or delivery of care for this patient. (AMY FIELDS MD) EDGAR LEMA Oct 05, 2021 14:21 AMY FIELDS MD Oct 05, 2021 19:18
[2021-10-05] MEDS ORDERED: fentaNYL INJ 100 MCG/2 ML AMP IVP STA (14:33)
[2021-10-05 14:39] LABS: BASOPHILS # (AUTO) 0.1 10^3/uL (0.0-0.1); BASOPHILS % (AUTO) 0 % (0-10); EOSINOPHILS # (AUTO) 0.2 10^3/uL (0.0-0.3); EOSINOPHILS % (AUTO) 1 % (0-10); HEMATOCRIT 45 % (35-52); HEMOGLOBIN 15.3 g/dL (11.5-16.0); LYMPHOCYTES # (AUTO) 3.5 10^3/uL (1.0-4.0); LYMPHOCYTES % (AUTO) 22 % (12-44); MEAN CORPUSCULAR HEMOGLOBIN 31 pg (25-34); MEAN CORPUSCULAR HGB CONC 34 g/dL (32-36); MEAN CORPUSCULAR VOLUME 91 fL (80-99); MONOCYTES % (AUTO) 6 % (0-12); NEUTROPHILS # (AUTO) 11.4 10^3/uL (1.8-7.8); NEUTROPHILS % (AUTO) 70 % (42-75); PLATELET COUNT 379 10^3/uL (130-400); WHITE BLOOD COUNT 16.3 10^3/uL (4.3-11.0)
[2021-10-05 14:48] LABS: ALBUMIN 4.2 GM/DL (3.2-4.5); POTASSIUM 4.2 MMOL/L (3.6-5.0)
[2021-10-05 14:49] LABS: CALCIUM 9.7 MG/DL (8.5-10.1)
[2021-10-05 14:51] LABS: TOTAL PROTEIN 7.9 GM/DL (6.4-8.2)
[2021-10-05 14:52] LABS: BILIRUBIN,TOTAL 0.3 MG/DL (0.1-1.0)
[2021-10-05 14:54] LABS: CREATININE SERUM 0.79 MG/DL (0.60-1.30)
[2021-10-05 14:59] LABS: LYMPHOCYTES % (MANUAL) 27 %; MONOCYTES % (MANUAL) 4 %; NEUTROPHILS % (MANUAL) 69 %
[2021-10-05 15:00] LABS: RBC MORPH NORMAL
--- NOTE | 2021-10-05 15:15 | Diagnostic Imaging Report ---
INDICATION: anterior knee pain COMPARISON: None. FINDINGS: 3 views of the left knee joint demonstrate no acute fracture or dislocation. No focal osseous lesions are seen. No significant joint effusion is seen. The surrounding soft tissue structures are unremarkable. There are no radiopaque foreign bodies. IMPRESSION: 1. No acute fractures or dislocations of the left knee joint. Dictated by: Dictated on workstation # [id number]
--- NOTE | 2021-10-05 15:28 | Diagnostic Imaging Report ---
PROCEDURE: CT head, face, and cervical spine without contrast. TECHNIQUE: Multiple contiguous axial images were obtained through the head, neck, and facial bones without the use of intravenous contrast. Sagittal and coronal reformations through the cervical spine and facial bones were also performed. Auto Exposure Controls were utilized during the CT exam to meet ALARA standards for radiation dose reduction. INDICATION: Fall with facial injuries. COMPARISON: No relevant comparison CT HEAD: There is no intracranial hemorrhage. No cerebral edema, hydrocephalus, mass or mass effect. There are no abnormal extra-axial collections. There is no calvarial fracture deformity. No hemo-sinus. No pneumocephalus. CT CERVICAL SPINE: Cervical statures normal. The alignment anatomic. The facet relationships normal. No fracture. No paraspinal hemorrhage. No substantial stenosis. Craniocervical relationship in the central skull base appeared intact. CT FACIAL BONES: The nasal bones and bony nasal septum intact. There is no orbital wall fracture. There is no post septal or retrobulbar orbital hematoma. There is some right greater than left preseptal periorbital soft tissue swelling. The globe morphologies and densities appeared normal. The bony maxillary sinus viveros are intact. There is no hemo-sinus. The pterygoid plates intact. The mandible and bony temporomandibular joints unremarkable. The zygomatic arch is intact. There is some irregularity of the distal tip of the infranasal anterior maxillary spine. Some overlying soft tissue distortion. The remaining bony maxilla and hard palate appeared intact. IMPRESSION: CT HEAD: No hemorrhage or acute intracerebral pathology. CT CERVICAL SPINE: No cervical fracture or traumatic malalignment. CT FACIAL BONES: Soft tissue swelling. Bony irregularity and soft tissue swelling associated with the anterior maxillary spine infranasal. Nasal bones and bony nasal septum themselves intact and the remaining facial bones and orbits appeared normal. Dictated by: Dictated on workstation # [id number]
[2021-10-05] MEDS ORDERED: ACHD5005 PO ×2 (15:39→16:40)
[2021-10-05] MEDS ORDERED: AMOX1TAB12 PO (15:39)
[2021-10-05] MEDS ORDERED: HYDROcodone/APAP 5 MG/325 MG (LORTAB) TAB PO ONE (15:45)
[2021-10-05 15:57] VITALS: BP 123/85
[2021-10-05] MEDS ORDERED: CLIN-144 PO ×2 (16:12→16:40)
== END 2021-10-05 15:56 | disposition home or self-care (01) ==
LOC: EDUNIT# 13:42 → ER 13:43
DX: S02.80XA Fracture of other specified skull and facial bones, unspecified side, initial encounter for closed fracture (principal); S80.212A Abrasion, left knee, initial encounter; M54.2 Cervicalgia; F17.210 Nicotine dependence, cigarettes, uncomplicated; W18.30XA Fall on same level, unspecified, initial encounter; W22.8XXA Striking against or struck by other objects, initial encounter
CPT/HCPCS: 36415; 70450; 70486; 72125; 73562; 80053; 85007; 85027